=== PATIENT | female | born 1940 | race Caucasian/White ===

== ENCOUNTER → 2018-09-06 08:12 | Outpatient (CLI) | payer MEDICARE, SELFPAY ==
[2017-09-01 12:52] VITALS: BMI 38.5
[2018-09-06 09:13] LABS: Absolute Lymphocyte Count 2.43 X10^3/ul (0.83-4.51); Absolute Neutrophil Count 3.7 X10^3/uL (2.0-7.7); Basophil# 0.11 X10^3/uL; Basophil% 1.5 % (0-1); Eosinophil# 0.26 X10^3/uL; Eosinophils% 3.5 % (0-5); Hemoglobin 13.4 g/dl (12.0-15.0); Lymphocyte # 2.43 X10^3/ul (4.0); Lymphocyte % 32.6 % (19-41); Mean Corp Hgb Conc 31.9 g/gl (32-36); Mean Corpuscular Hgb 31.8 pg (27.0-32.0); Mean Corpuscular Volume 99.5 fL (81-99); Mean Platelet Vol. 10.4 fl (6.2-12.0); Monocyte# 0.92 X10^3/uL; Monocyte% 12.3 % (0-10); Neutrophil # 3.73 X10^3/uL (2.7-7.7); Platelet Count 339 K/mm3 (150-450); RBC Distribution Width CV 15.8 % (11.6-14.6); RBC Distribution Width SD 57.6 fl (35.1-43.9); Red Blood Count 4.22 M/mm3 (4.2-5.4); White Blood Count 7.5 K/mm3 (4.4-11.0)
[2018-09-06 09:18] LABS: POSITIVE COUNT NO; POSITIVE DIFFERENTIAL NO; POSITIVE MORPHOLOGY NO
[2018-09-06 09:49] LABS: BUN 26 mg/dL (7-18); Creatinine, Serum 0.73 mg/dL (0.55-1.02); EST Glomerular Filtration Rate 82 mL/min (>60); Glucose 84 mg/dL (74-106)
[2018-09-06 09:50] LABS: ALB/GLOB Ratio 0.9 RATIO (0.9-2.4); AST(SGOT) 28 U/L (15-37); Alanine Aminotransfer ALT/SGPT 31 U/L (13-56); Albumin, Serum 3.3 g/dL (3.2-5.0); Alkaline Phosphatase 108 U/L (45-117); Anion Gap 7 (5-15); BUN/Creat Ratio 35.7 RATIO (10-20); Chloride 104 mmol/L (98-107); Est Glom Filt Rate - Afr Amer 99 mL/min (>60); Globulin 3.8 g/dL (2.2-4.2); Potassium 4.1 mmol/L (3.5-5.1); Protein, Total 7.1 g/dL (6.4-8.2); Sodium Level 140 mmol/L (136-145)
[2018-09-06 16:22] LABS: Xtra Tube EP Lab EXTRA TUBE
[2018-09-09 10:02] LABS: Cancer Antigen 125 14.4 U/mL (0.0-38.1)
--- OUTSIDE RECORDS SUMMARY | 2018-10-30 08:11 | XMS RPT_ITS ---
:1940 Author Organization OHIP Care Team Providers Name Role Phone IHSAN CRAMER CNP Primary Care Unavailable IHSAN CRAMER CNP Attending Unavailable IHSAN CRAMER CNP Attending Unavailable IHSAN CRAMER CNP Primary Care Unavailable IHSAN CRAMER CNP Attending Unavailable IHSAN CRAMER CNP Primary Care Unavailable DR. CHARLOTTE DING DO Attending Unavailable IHSAN CRAMER CNP Primary Care Unavailable MD. KESHA PINO MD. Unavailable MD. KESHA PINO MD. Admitting Unavailable ALVAREZ SHOOK MD. KESHA Ovalles Attending Unavailable IHSAN CRAMER CNP Primary Care Unavailable IHSAN CRAMER CNP Consulting Unavailable LAVERN SALDIVAR MD Consulting Unavailable Len Castorena Attending Unavailable IHSAN CRAMER Primary Care Unavailable Len Castorena Attending Unavailable Len Castorena Referring Unavailable Ihsan Eldridge Primary Care Unavailable Kell, Len Attending Unavailable MARIETTAIHSAN AN Primary Care Unavailable Len Castorena Consulting Unavailable PROBLEMS PROBLEMS DATE TYPE CONDITION / CODE ATTENDING STATUS SOURCE 09/09/2018 Unknown Z85.43 - Personal Len Castorena Active [facility] history of [facility] malignant neoplasm [facility] of ovary / Repository Z85.43(ICD-10) 01/19/2018 Admitting Vitamin D [facility], Active [facility] Diagnosis deficiency, IHSAN Cisneros [facility] unspecified / Repository E55.9(ICD-10) 01/19/2018 Admitting Essential [facility], [facility] Diagnosis (primary) IHSAN Cisneros [facility] hypertension / Repository I10(ICD-10) PROCEDURES PROCEDURES No Procedure Records FoundRESULTS RESULTS ONCOLOGY VISIT REPORT Observed: 09/09/2018 Status: F Source: [place] 3:15 PM [facility] REPOSITORY [facility] [address] [place] [id number] OFFICE VISIT Date of Service: 09/09/18 1510 MR#: [id number] Acct: [id number] Name: FLORIAN CHAPMAN Rep #: [id number] : 1940 From: Len Castorena MD Age/Sex: 77/F Location: OMD Status: Signed Subjective - Date of Service Date of Service:: 09/09/18 - Chief Complaint F/u for ovarian cancer. - History of Present Illness Ms. 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 Peritoneal washings positive. S/P bilateral salpingo-oophorectomy, hysterectomy, surgical laparotomy, and complete surgical staging and an omentectomy per Dr. Randell Magallon. Completed 6 cycles of adjuvant carboplatin/Taxol from 10/26/13- 02/08/14. Patient has residual neuropathy. She is on observation, comes in for follow up. She had Intestinal obstruction, treated conservatively at [place]. - Past Medical/Social History Past Medical History Past Medical History: Arthritis,Hypertension Cancer: Ovarian cancer Past Surgical History Surgical: Hysterectomy,Tonsillectomy Family History Paternal Past Medical History: Heart disease,Hypertension Maternal Past Medical History: Unknown Social History Social History: No changes Smoking Status Former smoker Review of Systems Constitutional:: Denies: Fever, Sweats, Weight loss, Appetite change, Chills Cardiovascular:: Denies: Chest pain, Palpitations, Dyspnea on exertion, Orthopnea, PND, Shortness of breath Respiratory: Denies: Cough, Hemoptysis, Shortness of Breath, Wheezing Gastrointestinal:: Denies: Abdominal pain, Nausea, Vomiting, Diarrhea, Constipation, Hematochezia Genitourinary: Denies: Dysuria, Hematuria, 15, Flank pain Musculoskeletal:: Denies: Back pain, Myalgia, Arthralgia Skin: Denies: Rash, Skin Changes, Wounds Neurological:: Denies: Headache, Dizziness, Visual changes, Tinnitus, Hearing loss Psychiatric: Denies: Anxiety, Depression, Homicidal Ideations, Suicidal Ideations Vital Signs Height 5 ft 1 in Weight: 92.533 kg Weight in Pounds 204.0 lbs Pulse Ox 94 - Physical Exam General: Alert, Oriented x3, No apparent distress HEENT: Atraumatic, PERRLA, EOMI, Normocephalic Oropharynx:: Dry mucosa Neck:: Supple, Trachea midline. Negative for: JVD, bilateral Cardiac:: Regular rate, Regular rhythm, Normal S1, Normal S2. Negative for: Murmur Lungs: Clear to auscultation, Excusion symmetrical. Negative for: Rhonchi, Wheezes Abdomen:: Bowel sounds x 4, Soft, Non-tender, Non-distended. Negative for: Hepatosplenomegaly Extremities:: Negative for: Cyanosis, Edema Neurological: Neuro grossly intact Skin:: Negative for: Lesions, Rash, Petechiae, Ecchymosis Psychiatric:: Appropriate affect, Euthymic Lymphatics:: Negative for: Cervical lymphadenopathy, Supraclavicular lymphadenopathy, Axillary lymphadenopathy Laboratory Data: Laboratory Tests CA 125 Antigen 14.4 Assessment and Plan Ovarian cancer stage I, no evidence of disease clinically. Discussed disease status with Pt. H/O intestinal obstruction. Obtain records from [facility]. Plan is to continue observation. RTC 6 months with CBC, CMP and CA125. Medications: Prescriptions This Visit Medication Instructions Recorded Acetaminophen 500 mg PO PRN PRN 02/24/17 Ergocalciferol [Vitamin D] 50,000 unit PO Q7D 02/24/17 Meloxicam [Mobic] 15 mg PO 09/01/17 Primary Care Provider: Ihsan Cramer Referring Provider: - Problem List (1) History of ovarian cancer in adulthood Status: Chronic Code Visit Office Visits / Consults: 12416 OV L4 Est 09/09/18 1515 <Electronically signed by Len Castorena MD> Date Len Castorena MD Cosigner Signature: Date (if applicable) CC: CBC W/DIFF, AUTOMATED Collected: 09/06/2018 Status: F Source: [place] 8:20 AM [facility] REPOSITORY Order Comment: Reason for Laboratory Test OVARIAN CANCER TYPE CODE TESTS RESULT OUT OF RANGE REFERENCE UNITS LAB L100.1000 4.4-11.0 K/mm3 Normal WBC 7.5 LAB L100.1200 4.2-5.4 M/mm3 Normal RBC 4.22 LAB L100.1300 12.0-15.0 g/dl Normal HGB 13.4 LAB L100.1400 37-47 % Normal HCT 42.0 LAB L100.1500 81-99 fL High MCV 99.5 LAB L100.1600 27.0-32.0 pg Normal MCH 31.8 LAB L100.1700 32-36 g/gl Low MCHC 31.9 LAB L100.1810 11.6-14.6 % High RDW CV 15.8 LAB L100.1820 35.1-43.9 fl High RDW SD 57.6 LAB L100.1900 150-450 K/mm3 Normal PLT 339 LAB L100.2000 6.2-12.0 fl Normal MPV 10.4 LAB L100.2100 47-70 % Normal NEUT% 50.0 LAB L100.2200 19-41 % Normal LY% 32.6 LAB L100.2300 0-10 % High MONO% 12.3 LAB L100.2400 0-5 % Normal EO% 3.5 LAB L100.2500 0-1 % High BASO% 1.5 LAB L100.2550 0.0-0.9 % Normal IM GRAN % 0.100 Result Comment: IG% - Immature Granulocytes (promyelocytes, myelocytes and metamyelocytes) > 1% indicates that a LEFT SHIFT is Present. LAB L100.2620 2.0-7.7 X10 3/uL Normal Absolute Neut 3.7 LAB L100.2720 0.83-4.51 X10 3/ul Normal Absolute Lymph 2.43 Performed By: #### L100.0100 #### [facility] [address] [place], [address] COMPREHENSIVE METABOLIC Collected: 09/06/2018 Status: F Source: [facility] 8:20 AM [facility] REPOSITORY Order Comment: Reason for Laboratory Test OVARIAN CANCER TYPE CODE TESTS RESULT OUT OF RANGE REFERENCE UNITS LAB L501.0100 74-106 mg/dL Normal GLU 84 Result Comment: Please note revised GLUCOSE reference range effective 2017. LAB L501.1000 7-18 mg/dL High BUN 26 LAB L501.1100 0.55-1.02 mg/dL Normal CREAT,SERUM 0.73 Result Comment: The validity of the calculated GFR AND GFRAA in patients over 70 years has not been determined. Clinical correlation is essential. LAB L501.1110 >60 mL/min Normal EST GFR 82 Result Comment: Non- GFR Calc LAB L501.1115 >60 mL/min Normal EST GFR - AA 99 Result Comment: GFR Calc LAB L501.1300 10-20 RATIO High BUN/CRE 35.7 LAB L501.1500 6.4-8.2 g/dL T Normal PROT 7.1 LAB L501.1800 3.2-5.0 g/dL Normal ALB 3.3 LAB L501.1950 2.2-4.2 g/dL Normal GLOB 3.8 LAB L501.2000 0.9-2.4 RATIO Normal A/G 0.9 LAB L501.2200 8.5-10.1 mg/dL CA Normal 9.0 LAB L501.4100 15-37 U/L Normal AST 28 LAB L501.4305 45-117 U/L Normal ALK P 108 LAB L501.4405 13-56 U/L Normal ALT 31 LAB L501.4600 0.20-1.00 mg/dL T Normal BILI 0.60 LAB L501.5300 136-145 mmol/L NA Normal 140 LAB L501.5600 3.5-5.1 mmol/L K Normal 4.1 LAB L501.5900 98-107 mmol/L CL Normal 104 LAB L501.6100 21.0-32.0 mmol/L Normal CO2 29.0 LAB L501.6200 5-15 Normal GAP 7 Performed By: #### L500.4050 #### [facility] [address] [place], [address] CANCER ANTIGEN 125 Collected: 09/06/2018 Status: F Source: [place] 8:20 AM [facility] REPOSITORY Order Comment: Reason for Laboratory Test OVARIAN CANCER TYPE CODE TESTS RESULT OUT OF RANGE REFERENCE UNITS LAB L3100.5000 0.0-38.1 U/mL Normal CA125 14.4 2303 Result Comment: [employer] ECLIA methodology Performed at: [facility] [address] [id number] Associate Dean Of Students: Ruddy Woodward PhD, Phone: [phone] Performed By: #### L3100.5000 #### [facility] (refer to report for specific site) refer to report for address and phone number XR ABDOMEN 2 VIEWS W/ Observed: 08/21/2018 Status: F Source: [facility]ERECT 7:45 AM [facility] REPOSITORY ORIGINAL XR ABDOMEN 2 VIEWS W/ DECUB/ERECT, 2 VIEWS CLINICAL STATEMENT: obstruction, pain. COMPARISON: CT abdomen pelvis 08/17/2018 FINDINGS: The bowel gas pattern is nonobstructive. No dilated loops of bowel or free air shown. Surgical clips are present in the abdomen. There is a moderate amount of stool and gas in the colon. Gas a nd stool is noted through the rectum. There is a caliber change of the column of gas of the descending colon overlying the ileum, a nonspecific finding. Degenerative changes are seen in the spine. IMPRESSION: Moderate stool and gas in the colon. Nonobstructive bowel gas pattern. Interpreted By: Kaelyn Pepper MD Preliminary Report By: Kaelyn Pepper MD Electronically Signed By: Kaelyn Pepper MD Dictated Date: 08/21/2018 7:39:39 AM Prelim Date: 08/21/2018 7:39:39 AM Sign Date: 08/21/2018 7:42:14 AM CBC Collected: 08/18/2018 Status: F Source: [facility] 5:15 AM [facility] REPOSITORY TYPE CODE TESTS RESULT OUT OF REFERENCE UNITS RANGE LAB WBC(LOINC) 4.50-10.80 10 3/mcL High WBC 14.00 LAB RBCCT(LOINC 4.10-5.30 10 6/mcL ) Low RBC 4.01 LAB HGB(LOINC) 12.0-16.0 G/dL Hgb 13.0 LAB HCT(LOINC) 34.0-46.0 % Hct 39.4 LAB MCV(LOINC) 80.0-99.0 fL MCV 98.5 LAB MCH(LOINC) 27.0-33.0 pg MCH 32.5 LAB MCHC(LOINC) 32.0-36.0 G/dL MCHC 33.0 LAB RDW(LOINC) 11.5-15.5 % High RDW 15.6 LAB PLT(LOINC) 150-450 10 3/mcL Platelet 234 LAB MPV(LOINC) 6.6-10.5 fL MPV 8.9 Performed By: #### ANEU, ADIFF, GFR, BMP, CBC #### [place] [address] .AUTO DIFF Collected: 08/18/2018 Status: F Source: [facility] 5:15 AM [facility]PART[facility] REPOSITORY TYPE CODE TESTS RESULT OUT OF REFERENCE UNITS RANGE LAB LYNNE(LOINC) 50.0-75.0 % High Neutrophil % 82.5 LAB LYM(LOINC) 20.0-40.0 % Low Lymphocyte % 9.8 LAB MON(LOINC) 2.0-13.0 % Monocyte % 7.5 LAB EO(LOINC) 0.0-6.0 % Eosinophil % 0.0 LAB BAS(LOINC) 0.0-2.5 % Basophil % 0.2 LAB ABLYM(LOIN 0.90-4.32 10 3/mcL C) Lymphocyte, 1.40 Absolute LAB CHELLE(LOINC 0.09-1.40 10 3/mcL ) Monocyte, 1.00 Absolute LAB AEOS(LOINC 0.00-0.65 10 3/mcL ) Eosinophil, 0.00 Absolute LAB ABAS(LOINC 0.00-0.27 10 3/mcL ) Basophil, 0.00 Absolute Performed By: #### ANEU, ADIFF, GFR, BMP, CBC #### [address] [address] .NEUABS Collected: 08/18/2018 Status: F Source: [facility] 5:15 AM [facility]ENC[facility]PART[facility] REPOSITORY TYPE CODE TESTS RESULT OUT OF REFERENCE UNITS RANGE LAB ANEU(LOINC) 2.25-8.10 10 3/mcL High Neutrophil, 11.50 Absolute Performed By: #### ANEU, ADIFF, GFR, BMP, CBC #### [place] [address] BMP Collected: 08/18/2018 Status: F Source: [facility] 5:15 AM [facility] EM[facility]PART[facility] REPOSITORY TYPE CODE TESTS RESULT OUT OF REFERENCE UNITS RANGE LAB GLU(LOINC) 82-115 mg/dL Glucose Level 101 LAB NA(LOINC) 136-145 mEq/L Sodium Level 140 LAB K(LOINC) 3.5-5.0 mEq/L Potassium Level 3.6 LAB CL(LOINC) 98-110 mEq/L Chloride 107 LAB CO2(LOINC) 22-32 mEq/L CO2 24 LAB EBAL(LOINC 4.0-15.0 mEq/L ) Electrolyte Balance 9.0 LAB BUN(LOINC) 8.0-22.0 mg/dL BUN 15.0 LAB CRE(LOINC) 0.50-1.20 mg/dL Creatinine Lvl (s) 0.59 LAB BC(LOINC) 10.0-22.0 ratio High BUN/Creatinine 25.4 Ratio LAB CA(LOINC) 8.4-10.1 mg/dL Low Calcium Lvl 8.1 Performed By: #### ANEU, ADIFF, GFR, BMP, CBC #### [address] [address] .GFR Collected: 08/18/2018 Status: F Source: [facility] 5:15 AM [facility] EMERGENC[facility]PART[facility] REPOSITORY TYPE CODE TESTS RESULT OUT OF REFERENCE UNITS RANGE LAB GFRAA(LOINC ml/min/1.73 ) sqm GFR >60 Vietnamese Result Comment: GFR Population mean for , Non- Americans Ages 20-29 = 116 mL/min/1.73 sq.m. Ages 30-39 = 107 mL/min/1.73 sq.m. Ages 40-49 = 99 mL/min/1.73 sq.m. Ages 50-59 = 93 mL/min/1.73 sq.m. Ages 60-69 = 85 mL/min/1.73 sq.m. Ages 70+ = 75 mL/min/1.73 sq.m. Chronic Kidney Disease: Less than 60 mL/min/1.73 square meters End Stage Renal Disease: Less than 15 mL/min/1.73 square meters LAB GFRNO(LOINC) ml/min/1.73sqm GFR Non- >60 Result Comment: GFR Population mean for , Non- Americans Ages 20-29 = 116 mL/min/1.73 sq.m. Ages 30-39 = 107 mL/min/1.73 sq.m. Ages 40-49 = 99 mL/min/1.73 sq.m. Ages 50-59 = 93 mL/min/1.73 sq.m. Ages 60-69 = 85 mL/min/1.73 sq.m. Ages 70+ = 75 mL/min/1.73 sq.m. Chronic Kidney Disease: Less than 60 mL/min/1.73 square meters End Stage Renal Disease: Less than 15 mL/min/1.73 square meters Performed By: #### ANEU, ADIFF, GFR, BMP, CBC #### [place] [address] CT ABD/PELVIS W/ IV Observed: 08/17/2018 Status: F Source: [facility] CONTRAST ONLY 5:08 PM [facility] REPOSIT[facility] ORIGINAL CT ABD/PELVIS W/ IV CONTRAST ONLY CLINICAL STATEMENT: LEFT lower quadrant abdominal pain, nausea, vomiting, constipation COMPARISON: None TECHNIQUE: Axial images were obtained from the lung bases through the pubic symphysis after the administration of IV contrast. Coronal reformatted images were generated from the axial dataset. This exam was performed according to our departmental dose optimization program, and includes the following measures where applicable: automated exposure control, adjustment of the mAs and/or kVp according to pa tient size and/or exam, and an iterative reconstruction algorithm. FINDINGS: The included lung bases demonstrate bibasilar atelectasis. There is no visible pleural or pericardial effusion. The heart is normal in size. The liver, spleen, adrenal glands, kidneys, gallbladder and pancreas are within normal limits. There is a small hiatal hernia. Stomach is unremarkable. There are no dilated bowel loops. The sigmoid colon is collapsed. There are sigmoid diverticuli without evidence of acute diverticulitis. Within the mid descending colon, there is an abrupt transition point of collapsed distal descending colon and air and stool-filled proximal descending colon. There may be a short segment target appearance whic h may represent intussusception. There is mild adjacent fat stranding. There is a moderate amount of stool within the descending colon to the cecum. No free intraperitoneal fluid or air is identified. The aorta is atherosclerotic and nonaneurysmal. There is no lymphadenopathy. The uterus is surgically absent. There are advanced degenerative changes within the spine. There is levocurvature of the lumbar spine. There is sclerosis and degenerative change of the LEFT SI joint. IMPRESSION: Abrupt transition point in the distal descending colon with a short segment target appearance which may represent an intussusception. Further evaluation needed to exclude an underlying mass. There is mi ld adjacent fat stranding/inflammation. The colon is mildly distended proximal to this point of transition and a partial obstruction is not excluded. The small bowel is not distended at this time. Moderate amount of stool within the colon. Discussed with Dr. Ding at 6:00 PM I have personally reviewed the images of this examination and agree with the resident's findings and interpretation. Interpreted By: Aron Badillo MD Preliminary Report By: Xenia Cabrera MD Electronically Signed By: Aron Badillo MD Dictated Date: 08/17/2018 5:26:12 PM Prelim Date: 08/17/2018 5:45:35 PM Sign Date: 08/17/2018 6:03:29 PM UA Collected: 08/17/2018 Status: F Source: [facility] 4:36 PM [facility] REPOSITORY TYPE CODE TESTS RESULT OUT OF RANGE REFERENCE UNITS LAB SPCUA(LEXI NC) UA Specimen Type Void LAB CLRUA(LEXI NC) UA Color Yellow LAB APPUA(LEXI Clear NC) UA Appear Unknown Slightly Cloudy LAB SGUA(LOIN C) UA Spec Unknown Grav >=1.030 LAB GLUA(LOIN Negative mg/dL C) UA Glucose Negative LAB BILUA(LEXI Negative NC) UA Bili Unknown Small LAB KETUA(LEXI Negative mg/dL NC) UA Ketones Unknown 15 LAB BLDUA(LEXI Negative NC) UA Blood Unknown Large LAB PHUA(LOIN C) UA pH 5.5 LAB PROUA(LEXI Negative mg/dL NC) UA Protein 30 LAB UROUA(LEXI E.U./dL NC) UA Urobilinogen 0.2 LAB NITUA(LEXI Negative NC) UA Nitrite Negative LAB LEUUA(LEXI Negative NC) UA Leuk Est Negative Performed By: #### UA, UAMICAO #### [address] [address] .URINALYSIS MICROSCOPIC Collected: 08/17/2018 Status: F Source: [facility] 4:36 [facility] REPOSITORY TYPE CODE TESTS RESULT OUT OF RANGE REFERENCE UNITS LAB WBCUA(LOIN None Seen /hpf C) Unknown UA WBC 0-5 LAB RBCUA(LOIN None Seen /hpf C) Unknown UA RBC 5-10 LAB EPIUA(LOIN None Seen /hpf C) Unknown UA Squam Epithelial 0-5 LAB MUCUA(LOIN /hpf C) UA Mucous 3+ LAB HYAC(LOINC /lpf ) Unknown UA Hyal Cast 0-5 Performed By: #### UA, UAMICAO #### [address] [address] .GFR Collected: 08/17/2018 Status: F Source: [facility] 4:36 [facility] REPOSITORY TYPE CODE TESTS RESULT OUT OF REFERENCE UNITS RANGE LAB GFRAA(LOINC ml/min/1.73 ) sqm GFR 98 Vietnamese Result Comment: GFR Population mean for , Non- Americans Ages 20-29 = 116 mL/min/1.73 sq.m. Ages 30-39 = 107 mL/min/1.73 sq.m. Ages 40-49 = 99 mL/min/1.73 sq.m. Ages 50-59 = 93 mL/min/1.73 sq.m. Ages 60-69 = 85 mL/min/1.73 sq.m. Ages 70+ = 75 mL/min/1.73 sq.m. Chronic Kidney Disease: Less than 60 mL/min/1.73 square meters End Stage Renal Disease: Less than 15 mL/min/1.73 square meters LAB GFRNO(LOINC) ml/min/1.73sqm GFR Non- 81 Result Comment: GFR Population mean for , Non- Americans Ages 20-29 = 116 mL/min/1.73 sq.m. Ages 30-39 = 107 mL/min/1.73 sq.m. Ages 40-49 = 99 mL/min/1.73 sq.m. Ages 50-59 = 93 mL/min/1.73 sq.m. Ages 60-69 = 85 mL/min/1.73 sq.m. Ages 70+ = 75 mL/min/1.73 sq.m. Chronic Kidney Disease: Less than 60 mL/min/1.73 square meters End Stage Renal Disease: Less than 15 mL/min/1.73 square meters Performed By: #### GFR, BMP #### [place] [address] #### CBC, DIFF, MORPH #### [address] [address] BMP Collected: 08/17/2018 Status: F Source: [facility] 4:36 PM [facility] REPOSITORY TYPE CODE TESTS RESULT OUT OF REFERENCE UNITS RANGE LAB GLU(LOINC) 83-110 mg/dL Glucose High Level 114 LAB NA(LOINC) 136-145 mmol/L Sodium Level 137 LAB K(LOINC) 3.5-5.1 mmol/L Potassium Level 4.1 LAB CL(LOINC) 98-107 mmol/L Chloride 99 LAB CO2(LOINC) 23-31 mmol/L CO2 29 LAB EBAL(LOINC mEq/L ) Electrolyte Balance 9.0 LAB BUN(LOINC) 7-18 mg/dL BUN 15 LAB CRE(LOINC) 0.55-1.02 mg/dL Creatinine Lvl (s) 0.70 LAB BC(LOINC) 7-27 ratio BUN/Creatinine 21 Ratio LAB CA(LOINC) 8.4-10.2 mg/dL Calcium Lvl 9.3 Performed By: #### GFR, BMP #### [address] [address] #### CBC, DIFF, MORPH #### [place] [address] [place], [place] [address] CBC Collected: 08/17/2018 Status: F Source: [facility] 4:36 PM [facility] REPOSITORY TYPE CODE TESTS RESULT OUT OF REFERENCE UNITS RANGE LAB WBC(LOINC) 4.60-10.80 10 3/mcL High WBC 15.60 LAB RBCCT(LOINC 4.20-5.40 10 6/mcL ) RBC 4.92 LAB HGB(LOINC) 12.0-16.0 G/dL Hgb 15.6 LAB HCT(LOINC) 37.0-47.0 % High Hct 47.8 LAB MCV(LOINC) 80.0-94.0 fL High MCV 97.1 LAB MCH(LOINC) 27.0-31.2 pg High MCH 31.8 LAB MCHC(LOINC) 33.0-37.0 G/dL Low MCHC 32.7 LAB RDW(LOINC) 11.5-14.5 % High RDW 14.8 LAB PLT(LOINC) 130-400 10 3/mcL Platelet 307 LAB MPV(LOINC) 7.4-10.4 fL MPV 8.6 Performed By: #### GFR, BMP #### [place] [address] #### CBC, DIFF, MORPH #### [address] [address] .MANUAL DIFF Collected: 08/17/2018 Status: F Source: [facility] 4:36 [facility] [place] REPOSITORY TYPE CODE TESTS RESULT OUT OF REFERENCE UNITS RANGE LAB NEUM(LOINC 37.0-80.0 % ) Neutrophil %, 70.0 Manual LAB LYMM(LOINC 10.0-50.0 % ) Low Lymphocyte %, 7.0 Manual LAB MONM(LOINC 1.7-13.0 % ) Monocyte %, Manual 7.0 LAB EOM(LOINC) 0.0-7.0 % Eosinophil %, 0.0 Manual LAB BASM(LOINC 0.0-2.5 % ) Basophil %, Manual 1.0 LAB ALYM(LOINC 0.0-5.0 % ) Atypical Lymphs 5.0 LAB BAND(LOINC 0.0-5.0 % ) Bands High 10.0 LAB ANEUM(LOIN 2.85-6.16 10 3/mcL C) High Neutrophil, Abs 12.50 Manual LAB ABLYMM(LEXI 0.77-3.85 10 3/mcL NC) Lymphocyte, Abs 1.90 Manual LAB AMONM(LOIN 0.15-1.00 10 3/mcL C) High Monocyte, Abs 1.10 Manual LAB AEOSM(LOIN 0.00-0.40 10 3/mcL C) Eosinophil, Abs 0.00 Manual LAB ABASM(LOIN 0.00-0.19 10 3/mcL C) Basophil, Abs 0.10 Manual Performed By: #### GFR, BMP #### [place] [address] #### CBC, DIFF, MORPH #### [address] [address] .MORPH Collected: 08/17/2018 Status: F Source: [facility] 4:36 PM [facility] REPOSITORY TYPE CODE TESTS RESULT OUT OF REFERENCE UNITS RANGE LAB PLTE(LOINC ) Platelet Estimate Normal LAB MACYT(LOIN C) Macrocytosis Slight LAB TGR(LOINC) Toxic Gran Moderate Performed By: #### GFR, BMP #### [place] [address] #### CBC, DIFF, MORPH #### [place] [address] [place], [place] [address] CBC Collected: 07/22/2018 Status: F Source: [facility] 8:15 AM [facility] EMERGENC[facility]PART[facility] REPOSITORY TYPE CODE TESTS RESULT OUT OF REFERENCE UNITS RANGE LAB WBC(LOINC) 4.60-10.80 10 3/mcL WBC 5.00 LAB RBCCT(LOINC 4.20-5.40 10 6/mcL ) RBC 4.84 LAB HGB(LOINC) 12.0-16.0 G/dL Hgb 15.2 LAB HCT(LOINC) 37.0-47.0 % High Hct 47.3 LAB MCV(LOINC) 80.0-94.0 fL High MCV 97.7 LAB MCH(LOINC) 27.0-31.2 pg High MCH 31.5 LAB MCHC(LOINC) 33.0-37.0 G/dL Low MCHC 32.2 LAB RDW(LOINC) 11.5-14.5 % RDW 13.9 LAB PLT(LOINC) 130-400 10 3/mcL Platelet 174 LAB MPV(LOINC) 7.4-10.4 fL MPV 9.7 Performed By: #### CMP, GFR, VIDH #### [place] [address] #### ADIFF, ANEU, CBC #### [address] [address] .AUTO DIFF Collected: 07/22/2018 Status: F Source: [facility] 8:15 AM [facility] EMERGENC[facility]PARTMENT REPOSITORY TYPE CODE TESTS RESULT OUT OF REFERENCE UNITS RANGE LAB LYNNE(LOINC) 37.0-80.0 % Neutrophil % 73.8 LAB LYM(LOINC) 10.0-50.0 % Lymphocyte % 14.9 LAB MON(LOINC) 1.7-13.0 % Monocyte % 7.8 LAB EO(LOINC) 0.0-7.0 % Eosinophil % 2.3 LAB BAS(LOINC) 0.0-2.5 % Basophil % 1.2 LAB ABLYM(LOIN 0.77-3.85 10 3/mcL C) Lymphocyte, 0.80 Absolute LAB CHELLE(LOINC 0.15-1.00 10 3/mcL ) Monocyte, 0.40 Absolute LAB AEOS(LOINC 0.00-0.40 10 3/mcL ) Eosinophil, 0.10 Absolute LAB ABAS(LOINC 0.00-0.19 10 3/mcL ) Basophil, 0.10 Absolute Performed By: #### CMP, GFR, VIDH #### [place] [address] #### ADIFF, ANEU, CBC #### [address] [address] .NEUABS Collected: 07/22/2018 Status: F Source: [facility] 8:15 AM [facility] EMERGENC[facility]PARTMENT REPOSITORY TYPE CODE TESTS RESULT OUT OF REFERENCE UNITS RANGE LAB ANEU(LOINC) 2.85-6.16 10 3/mcL Neutrophil, 3.70 Absolute Performed By: #### CMP, GFR, VIDH #### [place] [address] #### NOEMI, ANEU, CBC #### [place] [id number] [place], [place] [address] CMP Collected: 07/22/2018 Status: F Source: [facility] 8:15 AM [facility] EMERGENCY DEPARTMENT REPOSITORY TYPE CODE TESTS RESULT OUT OF REFERENCE UNITS RANGE LAB GLU(LOINC) 83-110 mg/dL Glucose Level 96 LAB NA(LOINC) 136-145 mmol/L Sodium Level 137 LAB K(LOINC) 3.5-5.1 mmol/L Potassium Level 4.3 LAB CL(LOINC) 98-107 mmol/L Chloride 101 LAB CO2(LOINC) 23-31 mmol/L CO2 28 LAB EBAL(LOINC mEq/L ) Electrolyte Balance 8.0 LAB BUN(LOINC) 7-18 mg/dL BUN High 24 LAB CRE(LOINC) 0.55-1.02 mg/dL Creatinine Lvl (s) 0.91 LAB BC(LOINC) 7-27 ratio BUN/Creatinine 26 Ratio LAB CA(LOINC) 8.4-10.2 mg/dL Calcium Lvl 9.1 LAB PROT(LOINC 6.4-8.2 G/dL ) Total Protein 7.0 LAB ALB(LOINC) 3.4-4.8 G/dL Albumin Level 3.6 LAB GLB(LOINC) G/dL Globulin 3.4 LAB AG(LOINC) 1.1-2.5 ratio A/G Ratio 1.1 LAB BILT(LOINC 0.2-1.0 mg/dL ) Bili Total 0.3 LAB AP(LOINC) 40-135 U/L Alk Phos 67 LAB AST(LOINC) 10-40 U/L AST/SGOT 35 LAB ALT(LOINC) 10-35 U/L ALT/SGPT High 47 Performed By: #### CMP, GFR, VIDH #### [facility] [address] [place] [address] #### NOEMI, ANEU, CBC #### [place] [address] [place], [place] [address] .GFR Collected: 07/22/2018 Status: F Source: [facility] 8:15 AM [facility] EMERGENCY DEPARTMENT REPOSITORY TYPE CODE TESTS RESULT OUT OF REFERENCE UNITS RANGE LAB GFRAA(LOINC ml/min/1.73 ) sqm GFR 73 Vietnamese Result Comment: GFR Population mean for , Non- Americans Ages 20-29 = 116 mL/min/1.73 sq.m. Ages 30-39 = 107 mL/min/1.73 sq.m. Ages 40-49 = 99 mL/min/1.73 sq.m. Ages 50-59 = 93 mL/min/1.73 sq.m. Ages 60-69 = 85 mL/min/1.73 sq.m. Ages 70+ = 75 mL/min/1.73 sq.m. Chronic Kidney Disease: Less than 60 mL/min/1.73 square meters End Stage Renal Disease: Less than 15 mL/min/1.73 square meters LAB GFRNO(LOINC) ml/min/1.73sqm GFR Non- 60 Result Comment: GFR Population mean for , Non- Americans Ages 20-29 = 116 mL/min/1.73 sq.m. Ages 30-39 = 107 mL/min/1.73 sq.m. Ages 40-49 = 99 mL/min/1.73 sq.m. Ages 50-59 = 93 mL/min/1.73 sq.m. Ages 60-69 = 85 mL/min/1.73 sq.m. Ages 70+ = 75 mL/min/1.73 sq.m. Chronic Kidney Disease: Less than 60 mL/min/1.73 square meters End Stage Renal Disease: Less than 15 mL/min/1.73 square meters Performed By: #### CMP, GFR, VIDH #### [place] [id number] [place] [address] #### NOEMI, ANEU, CBC #### [place] [address] [place], [place] [address] VIDH Collected: 07/22/2018 Status: F Source: [facility] 8:15 AM [facility] REPOSITORY TYPE CODE TESTS RESULT OUT OF RANGE REFERENCE UNITS LAB VIDH(LOINC) ng/mL Vit. D 83 25-Hydroxy Result Comment: Interpretive Values Based on Total 25(OH)D: Severe Deficiency <20 ng/mL Mild to Moderate Deficiency 20-30 ng/mL Optimum Levels 30-100 ng/mL Toxicity Possible >100 ng/mL Performed By: #### CMP, GFR, VIDH #### [place] [address] [place] [address] #### ADIFF, ANEU, CBC #### [facility] [address] [place], [place] [address] [place] MAMMOGRAM SCREENING Observed: 02/01/2018 Status: F Source: [facility] BILATERAL W/DK 2:30 PM FOUNDATION REPOSITORY ORIGINAL FROM: [address] [address] PROCEDURE FOR: FLORIAN CHAPMAN [address] [place] [place] [id number] Home: PID#: [id number] Exam#: [id number] : 1940 Age: 77 TO: IHSAN OWENPKINS KILN TESTER [address] [place] [address] #[id number] DIGITAL SCREENING MAMMOGRAM 3D/2D WITH CAD WITH MEDIOLATERAL OBLIQUE CRANIOCAUDAL: 02/01/2018 Comparison is made to exams dated: 01/29/2017 mammogram and 01/29/2016 mammogram - [facility]. There are scattered fibroglandular elements in both breasts. Current study was also evaluated with a Computer Aided Detection (CAD) system. There are benign scattered calcifications in both breasts. There also is a benign density in the right breast. No significant masses, calcifications, or other findings are seen in either breast. There has been no significant interval change. IMPRESSION: BENIGN There is no mammographic evidence of malignancy. A 1 year screening mammogram is recommended. I have personally reviewed the images of the examination and agree with the findings and interpretation. MARY MARTINEZ MD vfg,yz/penrad:02/01/2018 15:39:[address] Referee: TOREY ESTRELLA (Misa)(M), [facility] letter sent: Normal BI-RADS 1&2 Mammogram BI-RADS: 2 Benign CBC Collected: 01/19/2018 Status: F Source: [facility] 8:45 AM [facility]OUNDATION REPOSITORY TYPE CODE TESTS RESULT OUT OF REFERENCE UNITS RANGE LAB WBC(LOINC) 4.60-10.80 10 3/mcL WBC 7.10 LAB RBCCT(LOINC 4.20-5.40 10 6/mcL ) RBC 5.03 LAB HGB(LOINC) 12.0-16.0 G/dL High Hgb 16.1 LAB HCT(LOINC) 37.0-47.0 % High Hct 48.1 LAB MCV(LOINC) 80.0-94.0 fL High MCV 95.6 LAB MCH(LOINC) 27.0-31.2 pg High MCH 32.0 LAB MCHC(LOINC) 33.0-37.0 G/dL MCHC 33.4 LAB RDW(LOINC) 11.5-14.5 % RDW 14.1 LAB PLT(LOINC) 130-400 10 3/mcL Platelet 268 LAB MPV(LOINC) 7.4-10.4 fL MPV 10.2 Performed By: #### ANEU, GFR, CMP, CBC, ADIFF #### [address] [address] #### VI #### [address] [address] .AUTO DIFF Collected: 01/19/2018 Status: F Source: [facility] 8:45 AM [facility] EMERGENCY DEPARTMENT REPOSITORY TYPE CODE TESTS RESULT OUT OF REFERENCE UNITS RANGE LAB LYNNE(LOINC) 37.0-80.0 % Neutrophil % 49.4 LAB LYM(LOINC) 10.0-50.0 % Lymphocyte % 36.5 LAB MON(LOINC) 1.7-13.0 % Monocyte % 8.9 LAB EO(LOINC) 0.0-7.0 % Eosinophil % 2.7 LAB BAS(LOINC) 0.0-2.5 % Basophil % 2.5 LAB ABLYM(LOIN 0.77-3.85 10 3/mcL C) Lymphocyte, 2.60 Absolute LAB CHELLE(LOINC 0.15-1.00 10 3/mcL ) Monocyte, 0.60 Absolute LAB AEOS(LOINC 0.00-0.40 10 3/mcL ) Eosinophil, 0.20 Absolute LAB ABAS(LOINC 0.00-0.19 10 3/mcL ) High Basophil, 0.20 Absolute Performed By: #### ANEU, GFR, CMP, CBC, ADIFF #### [place] [address] [place], [place] [address] #### VIDH #### [address] [address] .NEUABS Collected: 01/19/2018 Status: F Source: [facility] 8:45 AM [facility] EMERGENCY DEPARTMENT REPOSITORY TYPE CODE TESTS RESULT OUT OF REFERENCE UNITS RANGE LAB ANEU(LOINC) 2.85-6.16 10 3/mcL Neutrophil, 3.50 Absolute Performed By: #### ANEU, GFR, CMP, CBC, ADIFF #### [place] [address] [place], [place] [address] #### VIDH #### [place] [id number] CMP Collected: 01/19/2018 Status: F Source: [facility] 8:45 AM [facility] EMERGENCY DEPARTMENT REPOSITORY TYPE CODE TESTS RESULT OUT OF REFERENCE UNITS RANGE LAB 1547-9 83-110 mg/dL GLUCOSE 85 LAB NA(LOINC) 136-146 mEq/L Sodium Level 139 LAB K(LOINC) 3.5-5.1 mEq/L Potassium Level 4.8 LAB CL(LOINC) 98-107 mEq/L Chloride 101 LAB CO2(LOINC) 23-31 mEq/L CO2 28 LAB EBAL(LOINC mEq/L ) Electrolyte Balance 10.0 LAB BUN(LOINC) 7.0-18.0 mg/dL BUN High 18.7 LAB CRE(LOINC) 0.6-1.2 mg/dL Creatinine Lvl (s) 0.8 LAB BC(LOINC) 7-27 ratio BUN/Creatinine 23 Ratio LAB CA(LOINC) 8.4-10.2 mg/dL Calcium Lvl 9.9 LAB PROT(LOINC 6.0-8.3 G/dL ) Total Protein 7.3 LAB ALB(LOINC) 3.4-4.8 G/dL Albumin Level 4.2 LAB GLB(LOINC) G/dL Globulin 3.1 LAB AG(LOINC) 1.1-2.5 ratio A/G Ratio 1.4 LAB BILT(LOINC 0.2-1.0 mg/dL ) Bili Total 0.6 LAB AP(LOINC) 40-135 IU/L Alk Phos 65 LAB AST(LOINC) 10-40 IU/L AST/SGOT 21 LAB ALT(LOINC) 10-35 IU/L ALT/SGPT 14 Performed By: #### ANEU, GFR, CMP, CBC, ADIFF #### [address] [address] #### VIDH #### [facility] [address] [place] [address] .GFR Collected: 01/19/2018 Status: F Source: [facility] 8:45 AM FOUNDATION REPOSITORY TYPE CODE TESTS RESULT OUT OF REFERENCE UNITS RANGE LAB GFRAA(LOINC ml/min/1.73 ) sqm GFR 83 Vietnamese Result Comment: GFR Population mean for , Non- Americans Ages 20-29 = 116 mL/min/1.73 sq.m. Ages 30-39 = 107 mL/min/1.73 sq.m. Ages 40-49 = 99 mL/min/1.73 sq.m. Ages 50-59 = 93 mL/min/1.73 sq.m. Ages 60-69 = 85 mL/min/1.73 sq.m. Ages 70+ = 75 mL/min/1.73 sq.m. Chronic Kidney Disease: Less than 60 mL/min/1.73 square meters End Stage Renal Disease: Less than 15 mL/min/1.73 square meters LAB GFRNO(LOINC) ml/min/1.73sqm GFR Non- >60 Result Comment: GFR Population mean for , Non- Americans Ages 20-29 = 116 mL/min/1.73 sq.m. Ages 30-39 = 107 mL/min/1.73 sq.m. Ages 40-49 = 99 mL/min/1.73 sq.m. Ages 50-59 = 93 mL/min/1.73 sq.m. Ages 60-69 = 85 mL/min/1.73 sq.m. Ages 70+ = 75 mL/min/1.73 sq.m. Chronic Kidney Disease: Less than 60 mL/min/1.73 square meters End Stage Renal Disease: Less than 15 mL/min/1.73 square meters Performed By: #### ANEU, GFR, CMP, CBC, ADIFF #### [address] [address] #### VIDH #### [facility] [address] [place] [address] VIDH Collected: 01/19/2018 Status: F Source: [facility] 8:45 AM [facility] EMERGENCY DEPARTMENT REPOSITORY TYPE CODE TESTS RESULT OUT OF RANGE REFERENCE UNITS LAB VIDH(LOINC) ng/mL Vit. D 72 25-Hydroxy Result Comment: Interpretive Values Based on Total 25(OH)D: Severe Deficiency <20 ng/mL Mild to Moderate Deficiency 20-30 ng/mL Optimum Levels 30-100 ng/mL Toxicity Possible >100 ng/mL Performed By: #### ANEU, GFR, CMP, CBC, ADIFF #### [place] [address] [place], [place] [address] #### VIDH #### [place] [id number] ALLERGIES ALLERGIES DATE TYPE / CODE NAME / CODE REACTION SEVERITY SOURCE 09/09/2018 Drug Sulfa Unknown Unknown [facility] Allergy/4160 (Sulfonamide Hospital 65192(SNOMED Antibiotics)/ Repository CT) [id number](RX NORM) 09/09/2018 Drug adhesive/F006 Rash Unknown [facility] Allergy/4160 154674(RXNORM Hospital 78205(SNOMED ) Repository CT) ENCOUNTERS ENCOUNTERS ADMIT/DISCHARGE ACCOUNT NUMBER ADMITTING ENCOUNTER LOCATION SOURCE CLASS 09/09/2018 [id number] Ambulatory BMSBuilding: [place] [facility] Repository 09/09/2018 [id number] Ambulatory [facility] ding:OMD Repository 09/06/2018 [id number] Ambulatory [facility] ding:LAB Repository 08/17/2018/08/22/20 [id number] ALVAREZ FAULKNER., Inpatient ABuilding:ME Jana [place] Encounter 6ERoom: Health 6703Bed: A [facility] Repository 08/17/2018/08/17/20 [id number] Emergency BBuilding:[place] [facility] Repository 07/22/2018/07/26/20 [id number] Ambulatory [address] ding:[facility] Repository 02/01/2018/02/02/20 [id number] Ambulatory [address] ding:[facility] Repository 01/19/2018/01/24/20 [id number] Ambulatory [address] ding:DROP [facility] Repository PAYERS PAYERS ENCOUNTER GUARANTOR PAYER SUBSCRIBER SOURCE 09/09/2018 FLORIAN Cullen Primary FLORIAN Cullen [place] [id number] Insurance:CHERELLE DOUGLASDOB: [facility] [id number] [facility] Number: Repository [address]Elo: 330 [id number] [phone] (HP) Date:4439-04-75[address], [place] [address]HX: 09/09/2018 Secondary NOT GIVENUNK [place] Insurance:SELF PAY [facility] Number: Effective Repository Date:2018-09-09 09/09/2018 FLORIAN Cullen Primary FLORIAN Cullen [place] [id number] Insurance:CHERELLE DOUGLASDOB: [id number]: Repository [id number]: 330 [id number] [phone] (HP) Date:[id number], [place] [address]NW: 09/09/2018 Secondary NOT GIVENUNK [place] Insurance:SELF PAY [facility] Number: Effective Repository Date:2016-12-23 09/06/2018 FLORIAN Cullen Primary FLORIAN Cullen [place] [id number] Insurance:CHERELLE DOUGLASDOB: [facility] [id number] [facility] Number: Repository [address]Mfe: 330 [id number] [phone] (HP) Date:8619-29-76[address] [address]QM: 09/06/2018 Secondary NOT GIVENUNK [place] Insurance:SELF PAY [facility] Number: Effective Repository Date:2018-09-06 08/17/2018 FLORIAN Cullen Primary FLORIAN Bates [facility] [place] [facility] DOUGLASDOB: Insurance:PRIME TIME DOUGLASDOB: [facility] [place]Policy [id number] Repository [address] Number: [place] [id number] [place] [address]Hjx: (330) Date:2018-08-1768115Lcb: [id number] [phone] (HP)Tel: ([phone]) Name:[address] (HP) (WP) [address], [place] [address] (WP) [address]XM: 08/17/2018 Secondary FLORIAN [facility] Insurance:MEDICARE DOUGLASDOB: [facility] [id number] Repository Number: [address] [id number] [facility] [place] Date:2017-04-18 [address]Blf: 330 [id number] [phone] Name:MMail Code AG (HP)Tel: [phone]) [phone] ([place]) [address] [address]YZ: 08/17/2018 [facility] FLORIAN Batse [facility] [place] [facility] DOUGLASDOB: Insurance:PRIME TIME DOUGLASDOB: [facility] [place]Policy [id number] Repository [address] Number: [place] [id number] [place]ÚL [place] [address]Fwz: (330) Date:2018-08-1704704Dgl: [id number] [phone] (HP)Tel: ([phone]) Name:[address] (HP) ([address]) [address], [place] [address] (WP) [phone]: 07/22/2018 [facility] FLORIAN Bates [facility] [place] [facility] DOUGLASDOB: Insurance:PRIME TIME DOUGLASDOB: [facility] [place]Policy [id number] Repository ALEX[address] OSMANI Number: [address] [id number] [place], [place] [address]Nlr: (330) Date:2018-07-22 [address]Hdv: [id number] [phone] (HP)Tel: ([phone]) Name:[address] (HP) ([address]) [address], [place] [address] (WP) [address]MA: 02/01/2018 [facility] DOUGLASDOB: Insurance:PRIME TIME DOUGLASDOB: [facility] [place]Policy [id number] Repository BRAYANS OSMANI Number: [address] [place] [id number] [place], [place] [address]Ugm: (330) Date:2018-01-2619013Kqc: [id number] [phone] (HP)Tel: ([phone]) Name:[address] (HP) ([address]) [address], [place] [address] (WP) [address]MD: 01/19/2018 [facility] DOUGLASDOB: Insurance:PRIME TIME DOUGLASDOB: [facility] HEALTH ([place])Policy [id number] Repository BRAYANS OSMANI Number: [address] [place] [id number] [place], [place] [address]Fnj: (330) Date:2018-01-1914519Qmn: [id number] [phone] (HP)Tel: ([phone]) Name:[address] (HP) ([address]) [address], [place] [address] (WP) [phone]:
== END ==
PROVIDERS: Referring Provider Internal Medicine Medical Oncology; Visit Provider Internal Medicine Medical Oncology
DX: C56.9 Malignant neoplasm of unspecified ovary (principal)
CPT/HCPCS: 36415; 80053; 85025; 86304

== ENCOUNTER → 2018-10-01 09:33 | Outpatient (CLI) | payer MEDICARE, SELFPAY ==
[2018-09-09 16:36] VITALS: BMI 35.9
--- NOTE | 2018-10-01 09:45 | RAD_ITS ---
Double contrast barium minimal. The preliminary film reveals hypertrophic changes and scoliosis of the lumbar spine no significant stool seen within the colon. Barium was introduced to the rectum. It reaches reach the portion of the transverse colon was introduced multiple spot films were obtained followed by overhead pictures where supine prone both lateral decubitus this revealed moderately diverticular disease in the sigmoid without diverticulitis there is no evidence of filling defects throughout the study. The postvoiding. Film revealed no abnormality detected RAD/Barium Enema w/Air Contrast IMPRESSION: Mild diverticular disease in the sigmoid without diverticulitis the rest of the examination is negative. Electronically Signed: Zeeshan Delarosa, at 15:56 EST Tel , Service support ,
== END ==
PROVIDERS: Referring Provider Internal Medicine Gastroenterology; Visit Provider Internal Medicine Gastroenterology
DX: K57.30 Diverticulosis of large intestine without perforation or abscess without bleeding (principal)
CPT/HCPCS: 74280

== ENCOUNTER → 2019-03-16 | Outpatient (CLI) | payer MEDICARE, SELFPAY ==
[2018-09-09 16:36] VITALS: BMI 35.9
[2019-03-16 09:22] LABS: Absolute Lymphocyte Count 1.96 X10^3/ul (0.83-4.51); Absolute Neutrophil Count 3.4 X10^3/uL (2.0-7.7); Basophil% 1.6 % (0-1); Eosinophil# 0.19 X10^3/uL; Eosinophils% 3.1 % (0-5); Hematocrit 47.7 % (37-47); Hemoglobin 15.6 g/dl (12.0-15.0); Lymphocyte # 1.96 X10^3/ul (4.0); Lymphocyte % 31.5 % (19-41); Mean Corp Hgb Conc 32.7 g/gl (32-36); Mean Corpuscular Hgb 31.3 pg (27.0-32.0); Mean Corpuscular Volume 95.8 fL (81-99); Monocyte# 0.53 X10^3/uL; Monocyte% 8.5 % (0-10); Neutrophil # 3.42 X10^3/uL (2.7-7.7); POSITIVE COUNT NO; POSITIVE DIFFERENTIAL NO; POSITIVE MORPHOLOGY NO; Platelet Count 255 K/mm3 (150-450); RBC Distribution Width CV 13.5 % (11.6-14.6); RBC Distribution Width SD 46.4 fl (35.1-43.9); Red Blood Count 4.98 M/mm3 (4.2-5.4); White Blood Count 6.2 K/mm3 (4.4-11.0)
[2019-03-16 10:07] LABS: AST(SGOT) 18 U/L (15-37); Alanine Aminotransfer ALT/SGPT 21 U/L (13-56); Albumin, Serum 3.7 g/dL (3.2-5.0); Alkaline Phosphatase 102 U/L (45-117); Anion Gap 2 (5-15); BUN 19 mg/dL (7-18); BUN/Creat Ratio 22.2 RATIO (10-20); Calcium,Total 9.2 mg/dL (8.5-10.1); Chloride 105 mmol/L (98-107); Creatinine, Serum 0.85 mg/dL (0.55-1.02); EST Glomerular Filtration Rate 68 mL/min (>60); Est Glom Filt Rate - Afr Amer 83 mL/min (>60); Globulin 3.7 g/dL (2.2-4.2); Glucose 80 mg/dL (74-106); Potassium 4.1 mmol/L (3.5-5.1); Protein, Total 7.4 g/dL (6.4-8.2); Sodium Level 138 mmol/L (136-145)
[2019-03-16 16:35] LABS: Xtra Tube EP Lab EXTRA TUBE
[2019-03-17 09:53] LABS: Cancer Antigen 125 7.5 U/mL (0.0-38.1)
== END | disposition home or self-care (01) ==
PROVIDERS: Referring Provider Internal Medicine Medical Oncology; Visit Provider Internal Medicine Medical Oncology
DX: Z85.43 Personal history of malignant neoplasm of ovary (principal)
CPT/HCPCS: 36415; 80053; 85025; 86304

== ENCOUNTER → 2019-07-26 | Outpatient (CLI) | payer MEDICARE, SELFPAY ==
[2019-05-12 11:08] VITALS: BMI 36.7
[2019-07-26 10:45] LABS: Absolute Lymphocyte Count 2.01 X10^3/uL (0.83-4.51); Absolute Neutrophil Count 3.7 X10^3/uL (2.0-7.7); Basophil# 0.11 X10^3/uL; Basophil% 1.6 % (0-1); Eosinophil# 0.29 X10^3/uL; Eosinophils% 4.3 % (0-5); Hematocrit 44.8 % (37-47); Hemoglobin 14.3 g/dL (12.0-15.0); Lymphocyte # 2.01 X10^3/ul (4.0); Lymphocyte % 29.7 % (19-41); Mean Corp Hgb Conc 31.9 g/dL (32-36); Mean Corpuscular Hgb 31.3 pg (27.0-32.0); Mean Platelet Vol. 10.7 fl (6.2-12.0); Monocyte# 0.67 X10^3/uL; Monocyte% 9.9 % (0-10); NRBC Flagged by Analyzer 0 % (0-5); Neutrophil # 3.68 X10^3/uL (2.7-7.7); Neutrophil % 54.4 % (47-70); Platelet Count 257 K/mm3 (150-450); Red Blood Count 4.57 M/mm3 (4.2-5.4); White Blood Count 6.8 K/mm3 (4.4-11.0)
[2019-07-26 11:08] LABS: Vitamin D,25 Hydroxy 115.6 ng/mL (29.95-100.01)
[2019-07-26 11:09] LABS: ALB/GLOB Ratio 0.9 RATIO (0.9-2.4); AST(SGOT) 21 U/L (15-37); Alanine Aminotransfer ALT/SGPT 19 U/L (13-56); Albumin, Serum 3.4 g/dL (3.2-5.0); Alkaline Phosphatase 87 U/L (45-117); Anion Gap 4 (5-15); BUN 21 mg/dL (7-18); BUN/Creat Ratio 25.7 RATIO (10-20); Calcium,Total 9.3 mg/dL (8.5-10.1); Chloride 104 mmol/L (98-107); Cholesterol 176 mg/dL (200); Creatinine, Serum 0.82 mg/dL (0.55-1.02); EST Glomerular Filtration Rate 72 mL/min (>60); Est Glom Filt Rate - Afr Amer 87 mL/min (>60); Globulin 3.9 g/dL (2.2-4.2); Glucose 85 mg/dL (74-106); High Density Lipoprotein 56 mg/dL; Potassium 4.5 mmol/L (3.5-5.1); Protein, Total 7.3 g/dL (6.4-8.2); Sodium Level 137 mmol/L (136-145); Triglycerides 73 mg/dL; Very Low Density Lipoprotein 15 mg/dL (5-40)
== END | disposition home or self-care (01) ==
LOC: MTLAB 08:29
PROVIDERS: Family Provider Nurse Practitioner Family; PCP Nurse Practitioner Family; Referring Provider Nurse Practitioner Family; Visit Provider Nurse Practitioner Family
DX: E55.9 Vitamin D deficiency, unspecified (principal); E78.5 Hyperlipidemia, unspecified; I10 Essential (primary) hypertension
CPT/HCPCS: 36415; 80053; 80061; 82306; 85025

== ENCOUNTER → 2019-09-02 09:56 | Outpatient (CLI) | payer MEDICARE, SELFPAY ==
[2019-05-12 11:08] VITALS: BMI 36.7
[2019-09-02 13:57] LABS: Vitamin D,25 Hydroxy 86.5 ng/mL (29.95-100.01)
== END ==
PROVIDERS: Family Provider Nurse Practitioner Family; PCP Nurse Practitioner Family; Referring Provider Nurse Practitioner Family; Visit Provider Nurse Practitioner Family
DX: E55.9 Vitamin D deficiency, unspecified (principal)
CPT/HCPCS: 36415; 82306

== ENCOUNTER → 2020-01-26 09:10 | Outpatient (CLI) | payer MEDICARE, SELFPAY ==
[2019-09-21 10:51] VITALS: BMI 41.5
[2020-01-26 10:33] LABS: Hematocrit 47.3 % (37-47); Hemoglobin 15.3 g/dL (12.0-15.0); Mean Corp Hgb Conc 32.3 g/dL (32-36); Mean Corpuscular Hgb 31.4 pg (27.0-32.0); Mean Corpuscular Volume 96.9 fL (81-99); Mean Platelet Vol. 10.9 fl (6.2-12.0); Platelet Count 257 K/mm3 (150-450); RBC Distribution Width CV 13.4 % (11.6-14.6); RBC Distribution Width SD 48.1 fl (35.1-43.9); Red Blood Count 4.88 M/mm3 (4.2-5.4); White Blood Count 6.9 K/mm3 (4.4-11.0)
[2020-01-26 10:48] LABS: ALB/GLOB Ratio 0.9 RATIO (0.9-2.4); AST(SGOT) 21 U/L (15-37); Alanine Aminotransfer ALT/SGPT 20 U/L (13-56); Albumin, Serum 3.5 g/dL (3.2-5.0); Alkaline Phosphatase 74 U/L (45-117); Anion Gap 3 (5-15); BUN 15 mg/dL (7-18); Calcium,Total 9.4 mg/dL (8.5-10.1); Chloride 105 mmol/L (98-107); Creatinine, Serum 0.83 mg/dL (0.55-1.02); EST Glomerular Filtration Rate 70 mL/min (>60); Est Glom Filt Rate - Afr Amer 85 mL/min (>60); Globulin 3.9 g/dL (2.2-4.2); Glucose 78 mg/dL (74-106); Potassium 4.1 mmol/L (3.5-5.1); Protein, Total 7.4 g/dL (6.4-8.2); Sodium Level 139 mmol/L (136-145)
== END ==
LOC: LAB.FUTURE 09:14 → LAB 01-27 06:36
PROVIDERS: PCP Nurse Practitioner Family; Referring Provider Nurse Practitioner Family; Visit Provider Nurse Practitioner Family
DX: I10 Essential (primary) hypertension (principal); E55.9 Vitamin D deficiency, unspecified
CPT/HCPCS: 36415; 80053; 82306; 85027

== ENCOUNTER → 2020-07-27 | Outpatient (CLI) | payer MEDICARE, SELFPAY ==
[2019-09-21 10:51] VITALS: BMI 41.5
[2020-07-27 09:24] LABS: Hemoglobin 14.9 g/dL (12.0-15.0); Mean Corp Hgb Conc 31.7 g/dL (32-36); Mean Corpuscular Hgb 31.7 pg (27.0-32.0); Mean Platelet Vol. 10.8 fl (6.2-12.0); Platelet Count 252 K/mm3 (150-450); RBC Distribution Width CV 12.7 % (11.6-14.6); RBC Distribution Width SD 47.9 fl (35.1-43.9); White Blood Count 6.6 K/mm3 (4.4-11.0)
[2020-07-27 09:47] LABS: Vitamin D,25 Hydroxy 47.7 ng/mL
[2020-07-27 09:48] LABS: ALB/GLOB Ratio 0.9 RATIO (0.9-2.4); AST(SGOT) 15 U/L (15-37); Alanine Aminotransfer ALT/SGPT 21 U/L (13-56); Albumin, Serum 3.6 g/dL (3.2-5.0); Alkaline Phosphatase 79 U/L (45-117); Anion Gap 5 (5-15); BUN 25 mg/dL (7-18); BUN/Creat Ratio 29.2 RATIO (10-20); Calcium,Total 8.9 mg/dL (8.5-10.1); Chloride 104 mmol/L (98-107); Creatinine, Serum 0.86 mg/dL (0.55-1.02); EST Glomerular Filtration Rate 68 mL/min (>60); Est Glom Filt Rate - Afr Amer 82 mL/min (>60); Globulin 3.8 g/dL (2.2-4.2); Glucose 93 mg/dL (74-106); Potassium 4.2 mmol/L (3.5-5.1); Protein, Total 7.4 g/dL (6.4-8.2); Sodium Level 139 mmol/L (136-145)
== END | disposition home or self-care (01) ==
LOC: LAB 08:48
PROVIDERS: PCP Nurse Practitioner Family; Referring Provider Nurse Practitioner Family; Visit Provider Nurse Practitioner Family
DX: I10 Essential (primary) hypertension (principal); E55.9 Vitamin D deficiency, unspecified
CPT/HCPCS: 36415; 80053; 82306; 85027

== ENCOUNTER → 2021-01-21 11:00 | Outpatient (CLI) | payer MEDICARE, SELFPAY ==
[2019-09-21 10:51] VITALS: BMI 41.5
[2021-01-21 11:58] LABS: Hemoglobin 14.5 g/dL (12.0-15.0); Mean Corp Hgb Conc 31.5 g/dL (32-36); Mean Corpuscular Hgb 31.3 pg (27.0-32.0); Mean Corpuscular Volume 99.1 fL (81-99); Mean Platelet Vol. 10.6 fl (6.2-12.0); Platelet Count 251 K/mm3 (150-450); RBC Distribution Width CV 13.2 % (11.6-14.6); RBC Distribution Width SD 48.3 fl (35.1-43.9); Red Blood Count 4.64 M/mm3 (4.2-5.4); White Blood Count 8.6 K/mm3 (4.4-11.0)
[2021-01-21 12:21] LABS: ALB/GLOB Ratio 0.9 RATIO (0.9-2.4); AST(SGOT) 17 U/L (15-37); Alanine Aminotransfer ALT/SGPT 20 U/L (13-56); Albumin, Serum 3.5 g/dL (3.2-5.0); Alkaline Phosphatase 77 U/L (45-117); Anion Gap 5 (5-15); BUN 21 mg/dL (7-18); BUN/Creat Ratio 26.3 RATIO (10-20); Calcium,Total 9.1 mg/dL (8.5-10.1); Chloride 101 mmol/L (98-107); Cholesterol 188 mg/dL (200); EST Glomerular Filtration Rate 74 mL/min (>60); Est Glom Filt Rate - Afr Amer 89 mL/min (>60); Globulin 3.8 g/dL (2.2-4.2); Glucose 84 mg/dL (74-106); High Density Lipoprotein 71 mg/dL; Potassium 4.1 mmol/L (3.5-5.1); Protein, Total 7.3 g/dL (6.4-8.2); Sodium Level 137 mmol/L (136-145); Triglycerides 64 mg/dL; Very Low Density Lipoprotein 13 mg/dL (5-40)
[2021-01-21 12:23] LABS: Vitamin D,25 Hydroxy 44.9 ng/mL
== END ==
PROVIDERS: PCP Nurse Practitioner Family; Referring Provider Nurse Practitioner Family; Visit Provider Nurse Practitioner Family
DX: I10 Essential (primary) hypertension (principal); E55.9 Vitamin D deficiency, unspecified; Z13.220 Encounter for screening for lipoid disorders
CPT/HCPCS: 36415; 80053; 80061; 82306; 85027

== ENCOUNTER → 2021-07-25 09:33 | Outpatient (CLI) | payer MEDICARE, SELFPAY ==
[2021-07-25 12:07] LABS: Hematocrit 45.8 % (37-47); Hemoglobin 14.7 g/dL (12.0-15.0); Mean Corp Hgb Conc 32.1 g/dL (32-36); Mean Corpuscular Hgb 31.7 pg (27.0-32.0); Mean Corpuscular Volume 98.9 fL (81-99); Mean Platelet Vol. 10.8 fl (6.2-12.0); Platelet Count 378 K/mm3 (150-450); RBC Distribution Width CV 13.2 % (11.6-14.6); RBC Distribution Width SD 47.8 fl (35.1-43.9); Red Blood Count 4.63 M/mm3 (4.2-5.4); White Blood Count 8.3 K/mm3 (4.4-11.0)
[2021-07-25 12:50] LABS: ALB/GLOB Ratio 0.7 RATIO (0.9-2.4); AST(SGOT) 19 U/L (15-37); Alanine Aminotransfer ALT/SGPT 22 U/L (13-56); Albumin, Serum 3.1 g/dL (3.2-5.0); Alkaline Phosphatase 76 U/L (45-117); Anion Gap 7 (5-15); BUN 12 mg/dL (7-18); Calcium,Total 9.2 mg/dL (8.5-10.1); Chloride 101 mmol/L (98-107); EST Glomerular Filtration Rate 73 mL/min (>60); Est Glom Filt Rate - Afr Amer 88 mL/min (>60); Globulin 4.3 g/dL (2.2-4.2); Glucose 86 mg/dL (74-106); Potassium 3.8 mmol/L (3.5-5.1); Protein, Total 7.4 g/dL (6.4-8.2); Sodium Level 138 mmol/L (136-145)
[2021-07-25 13:06] LABS: Vitamin D,25 Hydroxy 54.3 ng/mL
== END ==
PROVIDERS: PCP Nurse Practitioner Family; Referring Provider Nurse Practitioner Family; Visit Provider Nurse Practitioner Family
DX: E55.9 Vitamin D deficiency, unspecified (principal); I10 Essential (primary) hypertension
CPT/HCPCS: 36415; 80053; 82306; 85027

== ENCOUNTER → 2022-01-23 | Outpatient (CLI) | payer MEDICARE, SELFPAY ==
[2022-01-23 09:03] LABS: Hematocrit 45.2 % (37-47); Hemoglobin 14.6 g/dL (12.0-15.0); Mean Corp Hgb Conc 32.3 g/dL (32-36); Mean Corpuscular Hgb 31.7 pg (27.0-32.0); Mean Platelet Vol. 10.3 fl (6.2-12.0); Platelet Count 250 K/mm3 (150-450); RBC Distribution Width CV 14.5 % (11.6-14.6); RBC Distribution Width SD 52.3 fl (35.1-43.9); Red Blood Count 4.61 M/mm3 (4.2-5.4); White Blood Count 6.9 K/mm3 (4.4-11.0)
[2022-01-23 09:30] LABS: ALB/GLOB Ratio 0.8 RATIO (0.9-2.4); AST(SGOT) 16 U/L (15-37); Alanine Aminotransfer ALT/SGPT 21 U/L (13-56); Albumin, Serum 3.4 g/dL (3.2-5.0); Alkaline Phosphatase 73 U/L (45-117); Anion Gap 3 (5-15); BUN 24 mg/dL (7-18); BUN/Creat Ratio 28.3 RATIO (10-20); Calcium,Total 9.3 mg/dL (8.5-10.1); Chloride 105 mmol/L (98-107); Cholesterol 182 mg/dL (200); Creatinine, Serum 0.85 mg/dL (0.55-1.02); EST Glomerular Filtration Rate 68 mL/min (>60); Est Glom Filt Rate - Afr Amer 83 mL/min (>60); Glucose 88 mg/dL (74-106); High Density Lipoprotein 62 mg/dL; Potassium 4.5 mmol/L (3.5-5.1); Protein, Total 7.4 g/dL (6.4-8.2); Sodium Level 139 mmol/L (136-145); Triglycerides 94 mg/dL; Very Low Density Lipoprotein 19 mg/dL (5-40); Vitamin D,25 Hydroxy 50.3 ng/mL
== END | disposition home or self-care (01) ==
LOC: LAB 08:37
PROVIDERS: PCP Nurse Practitioner Family; Referring Provider Nurse Practitioner Family; Visit Provider Nurse Practitioner Family
DX: I10 Essential (primary) hypertension (principal); K21.9 Gastro-esophageal reflux disease without esophagitis; F41.8 Other specified anxiety disorders; E55.9 Vitamin D deficiency, unspecified; Z13.220 Encounter for screening for lipoid disorders
CPT/HCPCS: 36415; 80053; 80061; 82306; 85027

== ENCOUNTER → 2022-07-24 | Outpatient (CLI) | payer MEDICARE, SELFPAY ==
[2022-07-24 11:05] LABS: Hematocrit 48.7 % (37-47); Hemoglobin 15.9 g/dL (12.0-15.0); Mean Corp Hgb Conc 32.6 g/dL (32-36); Mean Corpuscular Hgb 32.3 pg (27.0-32.0); Mean Platelet Vol. 10.6 fl (6.2-12.0); Platelet Count 238 K/mm3 (150-450); RBC Distribution Width CV 12.7 % (11.6-14.6); RBC Distribution Width SD 46.5 fl (35.1-43.9); Red Blood Count 4.92 M/mm3 (4.2-5.4); White Blood Count 8.1 K/mm3 (4.4-11.0)
[2022-07-24 11:26] LABS: ALB/GLOB Ratio 0.8 RATIO (0.9-2.4); AST(SGOT) 17 U/L (15-37); Alanine Aminotransfer ALT/SGPT 19 U/L (13-56); Albumin, Serum 3.4 g/dL (3.2-5.0); Alkaline Phosphatase 81 U/L (45-117); Anion Gap 4 (5-15); BUN 18 mg/dL (7-18); BUN/Creat Ratio 20.4 RATIO (10-20); Calcium,Total 9.3 mg/dL (8.5-10.1); Chloride 102 mmol/L (98-107); Cholesterol 171 mg/dL (200); Creatinine, Serum 0.88 mg/dL (0.55-1.02); EST Glomerular Filtration Rate 65 mL/min (>60); Est Glom Filt Rate - Afr Amer 79 mL/min (>60); Globulin 4.2 g/dL (2.2-4.2); Glucose 82 mg/dL (74-106); High Density Lipoprotein 62 mg/dL; Potassium 4.3 mmol/L (3.5-5.1); Protein, Total 7.6 g/dL (6.4-8.2); Sodium Level 138 mmol/L (136-145); Triglycerides 82 mg/dL; Very Low Density Lipoprotein 16 mg/dL (5-40); Vitamin D,25 Hydroxy 51.7 ng/mL
[2022-07-24 11:29] LABS: Microalbumin:Creatinine Ratio 16.7 mg/g CRE (<30 mg/g CRE)
== END | disposition home or self-care (01) ==
LOC: LAB 10:33
PROVIDERS: PCP Nurse Practitioner Family; Visit Provider Nurse Practitioner Family
DX: E55.9 Vitamin D deficiency, unspecified (principal); I10 Essential (primary) hypertension; K21.9 Gastro-esophageal reflux disease without esophagitis; F41.8 Other specified anxiety disorders; Z13.220 Encounter for screening for lipoid disorders
CPT/HCPCS: 36415; 80053; 80061; 82043; 82306; 82570; 85027

== ENCOUNTER → 2023-01-23 | Outpatient (CLI) | payer MEDICARE, SELFPAY ==
[2023-01-23 09:38] LABS: Hematocrit 45.6 % (37-47); Hemoglobin 14.9 g/dL (12.0-15.0); Mean Corp Hgb Conc 32.7 g/dL (32-36); Mean Corpuscular Volume 97.9 fL (81-99); Mean Platelet Vol. 10.2 fl (6.2-12.0); Platelet Count 254 K/mm3 (150-450); RBC Distribution Width SD 46.9 fl (35.1-43.9); Red Blood Count 4.66 M/mm3 (4.2-5.4); White Blood Count 7.7 K/mm3 (4.4-11.0)
[2023-01-23 10:00] LABS: Microalbumin,Random Urine 15.5 mg/L (NO RANGE EST.); Microalbumin:Creatinine Ratio 19.4 mg/g CRE (<30 mg/g CRE)
[2023-01-23 10:08] LABS: ALB/GLOB Ratio 0.9 RATIO (0.9-2.4); AST(SGOT) 16 U/L (15-37); Alanine Aminotransfer ALT/SGPT 20 U/L (13-56); Albumin, Serum 3.5 g/dL (3.2-5.0); Alkaline Phosphatase 77 U/L (45-117); Anion Gap 3 (5-15); BUN 24 mg/dL (7-18); Calcium,Total 9.4 mg/dL (8.5-10.1); Chloride 105 mmol/L (98-107); Creatinine, Serum 0.77 mg/dL (0.55-1.02); EST Glomerular Filtration Rate 76 mL/min (>60); Est Glom Filt Rate - Afr Amer 92 mL/min (>60); Globulin 4.1 g/dL (2.2-4.2); Glucose 86 mg/dL (74-106); Potassium 4.3 mmol/L (3.5-5.1); Protein, Total 7.6 g/dL (6.4-8.2); Sodium Level 138 mmol/L (136-145)
[2023-01-23 10:09] LABS: Vitamin D,25 Hydroxy 54.4 ng/mL
== END | disposition home or self-care (01) ==
LOC: LAB 09:10
PROVIDERS: PCP Nurse Practitioner Family; Referring Provider Nurse Practitioner Family; Visit Provider Nurse Practitioner Family
DX: R26.1 Paralytic gait (principal); R63.8 Other symptoms and signs concerning food and fluid intake; F41.8 Other specified anxiety disorders; I10 Essential (primary) hypertension; E55.9 Vitamin D deficiency, unspecified
CPT/HCPCS: 36415; 80053; 82043; 82306; 82570; 85027

== ENCOUNTER 2023-04-24 09:32 | Emergency (ER) | payer MEDICARE, SELFPAY ==
[2023-04-24 09:33] VITALS: BP 197/104; PULSE 82; RESP 16; TEMP 36.3; O2SAT 95; BMI 41.8
--- NOTE | 2023-04-24 10:00 | CT_ITS ---
HISTORY: HEAD INJURY. TECHNIQUE: Multiple axial images were obtained of the head without intravenous contrast. A radiation dose optimization technique was used for this scan. 247 images. COMPARISON: None. FINDINGS: BRAIN PARENCHYMA: Multiple foci and zones of low attenuation in the bilateral cerebral white matter compatible with chronic small vessel ischemic gliosis. No acute intra-axial hemorrhage identified. CSF SPACES: Generalized volume loss. No midline shift or other significant mass effect. No acute extra-axial hemorrhage seen. OTHER: Intact calvarium. Severe opacification of the left ethmoid, sphenoid, and maxillary sinuses with protrusion into the nasal cavity. Bilateral lens resections. Mild posterior scalp hematoma. CT/Brain/Head without Contrast IMPRESSION: No acute intracranial process identified. Chronic involutional and white matter changes. Posterior scalp hematoma. 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 Electronically Signed: Cori Drew MD at 10:13 EDT ,
--- NOTE | 2023-04-24 10:13 | EX.ED.GENINJ ---
HPI History of Present Illness Chief Complaint: Head Injury Informant: patient Onset/Context/Timing Onset: Today Narrative Narrative: Patient presents via EMS after a fall at home. She slipped in the shower and fell backwards striking the back of her head. She did not lose consciousness. She is not on anticoagulants. She reports bruises to her upper extremities bilaterally but no other injury. [facility] Medical History Arthritis Bowel obstruction History of shingles Hypertension Home Medications Soothe Eye Drops 1 drp PRN PRN Allergies 10/26/13 [History Last Taken Unknown] aspirin 81 mg chewable tablet 81 mg PO DAILY@0800 10/26/13 [History Last Taken Unknown] multivitamin with folic acid 400 mcg tablet 1 tab PO DAILY 10/26/13 [History Last Taken Unknown] citalopram 10 mg tablet 10 mg PO QHS 01/18/14 [History Last Taken Unknown] acetaminophen 500 mg tablet 500 mg PO PRN PRN Pain 02/24/17 [History Last Taken Unknown] Omeprazole [Prilosec] 40 mg PO DAILY 09/09/18 [History Last Taken Unknown] polyethylene glycol 3350 17 gram oral powder packet 17 gm PO DAILY PRN Constipation 09/09/18 [History Last Taken Unknown] naproxen sodium 220 mg tablet 220 mg PO BID 03/23/19 [History Last Taken Unknown] lisinopril 10 mg tablet 10 mg PO DAILY 05/12/19 [History Last Taken Unknown] Allergy/AdvReac Type Severity Reaction Status Date / Time Sulfa (Sulfonamide Allergy Unknown Unknown Verified 09/21/19 10:50 Antibiotics) adhesive Allergy Rash Verified 09/21/19 10:50 Family History Father Hypertension Heart disease Surgical History Hx of tonsillectomy S/P [facility] Social History number of children: 0 Smoking Status: Former smoker alcohol intake: current alcohol intake frequency: holidays/special occasions only substance use type: does not use seatbelt use: always do you feel safe at home: Yes additional social history: Mehrdad 1994 ROS ROS ED Constitutional Constitutional ED: Denies chills or fever(s) Eyes Eyes: Denies change in vision or discharge from eye(s) ENT ENT ED: Denies discharge from eye(s), rhinorrhea or sore throat Cardiovascular Cardiovascular: Denies chest pain Respiratory/Chest Respiratory/Chest: Denies cough or dyspnea Gastrointestinal Gastrointestinal: Denies abdominal pain, nausea or vomiting Musculoskeletal Musculoskeletal: Denies back pain or extremity pain Integumentary Reports other Details: Scalp hematoma ; Denies Abrasions or rash Neurologic Neurologic: Denies headache(s) or weakness Psychiatric Psychiatric: Denies anxiety or depression Allergic/Immunologic Allergic/Immunologic ED: Denies lip swelling or urticaria EXAM Physical Exam Const Vital Signs: 04/24/23 09:33 04/24/23 09:36 Temperature 97.4 F L Temperature Source Temporal Pulse Rate 82 Respiratory Rate 16 Respiratory Effort Normal Non-Labored Respiratory Pattern Normal Blood Pressure 197/104 H Blood Pressure Mean 135 Pulse Ox 95 Oxygen Delivery Method Room Air Positive well nourished and well developed General Appearance ED: well developed HEENT HEENT Narrative: Hematoma over the midline posterior parietal scalp. No lacerations noted. No C-spine tenderness. Eyes PERRL and EOMs intact bilaterally Chest Wall inspection of chest normal and palpation of chest normal Resp normal respiratory effort and clear to auscultation bilaterally Cardio regular rhythm Rate: regular rate GI non-tender Palpation: soft Extremity normal to inspection Neuro oriented x3, moves all extremities and no sensory deficits noted Motor Exam: strength 5/5 throughout Psych mental status grossly normal Skin Skin Narrative: Ecchymosis noted on the hands bilaterally. No bony tenderness full range of motion. Hematoma to the scalp as noted above. No laceration. MDM MDM MDM Narrative Medical decision making narrative: CT scan of the head obtained to evaluate for intracranial injury. Patient denies headache at this time. Radiography Diagnostic Testing: Clinical Impression(s) from Imaging Studies Brain CT 04/24/23 10:00 IMPRESSION: No acute intracranial process identified. Chronic involutional and white matter changes. Posterior scalp hematoma. 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 Electronically Signed: Cori Drew MD at 10:13 EDT , Treatment and Re-Evaluation Narrative: CT scan of the head reveals posterior scalp hematoma with no acute intracranial process. Family is here at bedside and patient be discharged with them. Close head injury instructions given along with return instructions. Discharge Plan Triage Chief Complaint: Head Injury ED Provider: Columba Hu Dx/Rx/DC Orders Clinical Impression: Closed head injury, Hematoma of scalp, Fall Instructions: ED Scalp Contusion, ED Head Injury (Adult) Prescriptions: No Action lisinopril 10 mg tablet 10 mg PO DAILY aspirin 81 MG tablet,chewable 81 mg PO DAILY@0800 multivitamin with folic acid 1 TABLET tablet 1 tab PO DAILY Soothe Eye Drops liquid 1 drp Each Eye PRN PRN (Reason: Allergies) citalopram 10 MG tablet 10 mg PO QHS acetaminophen 500 MG tablet 500 mg PO PRN PRN (Reason: Pain) polyethylene glycol 3350 17 GM packet 17 gm PO DAILY PRN (Reason: Constipation) Omeprazole [Prilosec] 40 MG capsule 40 mg PO DAILY naproxen sodium 220 MG tablet 220 mg PO BID Primary Care Provider: Ihsan Cramer NP Referrals: Ihsan Cramer DISTRIBUTION SYSTEMS SUPERINTENDENT, DISTRIBUTION SYSTEMS SUPERINTENDENT-C [Primary Care Provider] - 1 Week Disposition Disposition: Home, Self Care
== END 2023-04-24 10:33 | disposition home or self-care (01) ==
LOC: ED 10:25
PROVIDERS: Emergency Provider Emergency Medicine; PCP Nurse Practitioner Family; Visit Provider Emergency Medicine
DX: S00.03XA Contusion of scalp, initial encounter (principal); I10 Essential (primary) hypertension; Z87.891 Personal history of nicotine dependence; W18.2XXA Fall in (into) shower or empty bathtub, initial encounter
CPT/HCPCS: 70450; 99284

== ENCOUNTER → 2023-07-27 | Outpatient (CLI) | payer MEDICARE, SELFPAY ==
[2023-07-27 12:49] LABS: Vitamin D,25 Hydroxy 57.5 ng/mL
[2023-07-27 12:53] LABS: Hemoglobin A1c 4.9 % (3.8-5.6)
[2023-07-27 13:17] LABS: ALB/GLOB Ratio 0.7 RATIO (0.9-2.4); AST(SGOT) 15 U/L (15-37); Alanine Aminotransfer ALT/SGPT 18 U/L (13-56); Albumin, Serum 3.1 g/dL (3.2-5.0); Alkaline Phosphatase 84 U/L (45-117); Anion Gap 5 (5-15); BUN 17 mg/dL (7-18); BUN/Creat Ratio 20.6 RATIO (10-20); Calcium,Total 9.1 mg/dL (8.5-10.1); Chloride 105 mmol/L (98-107); Cholesterol 161 mg/dL (200); Creatinine, Serum 0.83 mg/dL (0.55-1.02); EST Glomerular Filtration Rate 70 mL/min (>60); Est Glom Filt Rate - Afr Amer 85 mL/min (>60); Globulin 4.5 g/dL (2.2-4.2); Glucose 96 mg/dL (74-106); High Density Lipoprotein 57 mg/dL; Potassium 4.4 mmol/L (3.5-5.1); Protein, Total 7.6 g/dL (6.4-8.2); Sodium Level 139 mmol/L (136-145); Triglycerides 67 mg/dL; Very Low Density Lipoprotein 13 mg/dL (5-40)
== END | disposition home or self-care (01) ==
PROVIDERS: PCP Nurse Practitioner Family; Referring Provider Nurse Practitioner Family; Visit Provider Nurse Practitioner Family
DX: I10 Essential (primary) hypertension (principal); Z13.220 Encounter for screening for lipoid disorders; E55.9 Vitamin D deficiency, unspecified; Z13.1 Encounter for screening for diabetes mellitus
CPT/HCPCS: 36415; 80053; 80061; 82306; 83036

== ENCOUNTER 2023-07-30 11:30 | Inpatient (IN) | payer MEDICARE, SELFPAY ==
[2023-07-30] VITALS (10 sets, daily range): BP systolic 127–179; BP diastolic 47–135; PULSE 86–100; RESP 16–23; TEMP 36.4–37.6; O2SAT 91–95; BMI 40.2
--- NOTE | 2023-07-30 11:48 | EX.ED.DYSGE1 ---
HPI History of Present Illness Chief Complaint: Weakness [facility] Medical History Arthritis Bowel obstruction History of shingles Hypertension Home Medications aspirin 81 mg chewable tablet 81 mg PO DAILY heart health 10/26/13 [History Last Taken 07/30/23] citalopram 10 mg tablet 10 mg PO QHS depression 01/18/14 [History Last Taken 07/29/23] acetaminophen 500 mg tablet 1,000 mg PO 4X/DAY PRN Pain 02/24/17 [History Last Taken Unknown] naproxen sodium 220 mg tablet 440 mg PO DAILY inflammation 03/23/19 [History Last Taken 07/30/23] lisinopril 10 mg tablet 10 mg PO DAILY blood pressure 05/12/19 [History Last Taken 07/30/23] loperamide 2 mg capsule 2 mg PO UD PRN loose stool 07/30/23 [History Last Taken Unknown] multivitamin 1 tab PO DAILY health maintenance 07/30/23 [History Last Taken 07/30/23] omeprazole 40 mg capsule,delayed release 40 mg PO DAILY acid reflux 07/30/23 [History Last Taken 07/30/23] propranolol 80 mg tablet 160 mg PO DAILY blood pressure 07/30/23 [History Last Taken 07/30/23] Allergy/AdvReac Type Severity Reaction Status Date / Time Sulfa (Sulfonamide Allergy Unknown Unknown Verified 09/21/19 10:50 Antibiotics) adhesive Allergy Rash Verified 09/21/19 10:50 Family History Father Hypertension Heart disease Surgical History Hx of tonsillectomy S/P [facility] Social History number of children: 0 Smoking Status: Former smoker alcohol intake: current alcohol intake frequency: holidays/special occasions only substance use type: does not use seatbelt use: always do you feel safe at home: Yes additional social history: 1993 EXAM Physical Exam Const Vital Signs: 07/30/23 11:36 07/30/23 11:40 07/30/23 11:40 Temperature 97.6 F L Temperature Source Oral Pulse Rate 90 89 Respiratory Rate 22 H 23 H Respiratory Effort Normal Respiratory Pattern Tachypnea Blood Pressure 164/135 H Blood Pressure Mean 144 Pulse Ox 91 91 Oxygen Delivery Method Room Air Room Air 07/30/23 11:43 07/30/23 13:05 Temperature 97.6 F L 97.6 F L Temperature Source Oral Oral Pulse Rate 86 94 Respiratory Rate 22 H 23 H Respiratory Effort Respiratory Pattern Blood Pressure 152/115 H 143/119 H Blood Pressure Mean 127 127 Pulse Ox 93 93 Oxygen Delivery Method Room Air Room Air [facility] Narrative Medical decision making narrative: HISTORY OF PRESENT ILLNESS: 82-year-old male here for concern for weakness after getting a flu shot yesterday. SHe further states she received her flu vaccine yesterday and since has been diffusely weak, fatigued states she had vomiting last night. Notes diffuse abdominal pain. Notes blood per rectum. REVIEW OF SYSTEMS: Pertinent positives: Weakness Pertinent negatives: Focal weakness, fever, PHYSICAL EXAM: Nursing triage notes reviewed, Vital signs reviewed Constitutional: please see mdm HENT: MMM Eyes: Pupils equal round and reactive to light, Extraocular muscles intact Neck: No stridor, no JVD, full neck ROM Lungs: Clear to auscultation, No wheezing or rales. No increased work of breathing, no conversational dyspnea, no accessory muscle use, no nasal flaring. No respiratory distress noted Heart: Regular rate and rhythm, No murmurs, No rubs and No gallops, 2+ distal pulses (radial, femoral, posterior tibial) in all extremities Abdomen: Soft, diffuse abdominal tenderness noted rigidity, rebound or guarding, no obvious peritoneal signs, no palpable pulsatile abdominal masses, no auscultated abdominal bruit : No CVAT Extremities: No edema Rectal: Bright red blood per rectum Neuro: Alert and oriented x3, neuro exam at baseline, cranial nerves II through XII are intact. No pain with extraocular muscle movement. There is negative test of skew. 5 of 5 strength in upper and lower extremities in flexion extension. Intact sensation to light touch in upper and lower extremity dermatomes. No truncal or extremity ataxia. No dysdiadochokinesia. Normal gait. 2+ reflexes in upper and lower extremities. No meningeal signs. Negative Babinski. NIH of 0. Skin: No rash or lesions noted MEDICAL DECISION MAKING: Chief Complaint: Weakness External records reviewed: Prior ED records reviewed: Last ED visit in April 2023 for fall Factors affecting care: Hypertension, arthritis and bowel obstruction Social determinants of health: Elderly History obtained from others: EMS Consults: Internal medicine (Dr. Lamar) MDM Narrative: Patient was hemodynamically stable, afebrile and nontoxic-appearing. Exam without focal cardiopulmonary abnormalities or focal neurologic deficits. Rectal exam with bright red blood per rectum. I considered the following differential diagnosis: Intra-abdominal pathology, ACS, arrhythmia, severe anemia, GI bleed, pneumonia ALL IMAGES (IF OBTAINED) HAVE BEEN PERSONALLY REVIEWED AND INTERPRETED BY MYSELF. EKG with normal sinus rhythm, left axis deviation, normal intervals, no obvious STEMI CBC with significant leukocytosis suggestive of some inflammation, no obvious anemia noted hemoconcentration, no thrombocytopenia BMP with mild YOHANA, no significant Kellie normalities, no anion gap LFTs show no evidence of hepatobiliary pathology. Troponin is negative, no evidence of myocardial ischemia Lipase is wnl indicating no pancreatic inflammation. BNP elevated consistent with increased ventricular stretch Hemoccult stool positive Chest x-ray was read reviewed myself shows evidence of a component of pulmonary vascular congestion but no obvious pneumonia or pneumothorax. Synthesis of the patient's history, physical exam, labs, images are consistent with pancolitis, likely GI bleed. She is on some anemia on a blood thinner. She received IV antibiotics with IV fluids and will be admitted. The patient and/or family, caregivers express understanding. The patient and/or family, caregivers agrees with the plan. Shared decision making: I will have a discussion with the patient and or visitors regarding risk/benefits of further testing or admission. They will be made aware of of the risk/benefits inherent in this decision they will be given the opportunity to voice understanding. Total critical care time today provided was at least 0 [] minutes. This excludes separately billable procedures. Critical care time (if documented) is secondary to the patient having high probability of clinically significant/life threatening deterioration in the patient's condition which required my urgent intervention. Impression: 1. Fatigue 2. GI bleed 3. Leukocytosis 4. YOHANA 5. Pancolitis Dispo: Admit Lab Data Labs: Laboratory Results - last 24 hr 07/30/23 12:20 WBC 19.3 H RBC 5.08 Hgb 15.7 H Hct 48.5 H MCV 95.5 MCH 30.9 MCHC 32.4 RDW Std Deviation 47.4 H RDW Coeff of Lee 13.2 Plt Count 276 MPV 10.1 Immature Gran % (Auto) 0.500 Neut % (Auto) 83.9 H Lymph % (Auto) 7.5 L [place] % (Auto) 7.2 Eos % (Auto) 0.5 Baso % (Auto) 0.4 Absolute Neuts (auto) 16.2 H Absolute Lymphs (auto) 1.44 Nucleated RBC % 0 PT 14.4 INR 1.1 APTT 31.2 Sodium 140 Potassium 4.1 Chloride 105 Carbon Dioxide 29.0 Anion Gap 6 BUN 25 H Creatinine 1.16 H Estim Creat Clear Calc 28.22 Est GFR (MDRD) Af Amer 57 L Est GFR (MDRD) Non-Af 47 L BUN/Creatinine Ratio 21.6 H Glucose 138 H Calcium 9.2 Total Bilirubin 0.80 Direct Bilirubin 0.30 AST 15 ALT 20 Alkaline Phosphatase 86 Troponin I High Sens 8 B-Natriuretic Peptide 166.7 H Total Protein 7.9 Albumin 3.2 Globulin 4.7 H Lipase 14 Blood Type O POSITIVE Antibody Screen NEGATIVE Radiography Diagnostic Testing: Clinical Impression(s) from Imaging Studies Abdomen/Pelvis CT 07/30/23 12:03 IMPRESSION: Lange colitis. Fatty infiltration of the liver. Electronically Signed: Timothy Cain MD at 13:45 EDT Reading Location ID and State: [facility] / [place] , Service support , Chest X-Ray 07/30/23 12:35 IMPRESSION: Mild degree of vascular congestion. Electronically Signed: Timothy Cain MD at 13:20 EDT , Discharge Plan Triage Chief Complaint: Weakness ED Provider: Hi Lopez Dx/Rx/DC Orders Prescriptions: No Action lisinopril 10 mg tablet 10 mg PO DAILY aspirin 81 MG tablet,chewable 81 mg PO DAILY citalopram 10 MG tablet 10 mg PO QHS acetaminophen 500 MG tablet 1,000 mg PO 4X/DAY PRN (Reason: Pain) naproxen sodium 220 MG tablet 440 mg PO DAILY multivitamin Tablet 1 tab PO DAILY omeprazole 40 mg capsule,delayed release(DR/EC) 40 mg PO DAILY loperamide 2 mg capsule 2 mg PO UD PRN (Reason: loose stool) Rx Instructions: take one capsule by mouth as needed for each additional loose stool. do not exceed 8 capsules within a day. propranolol 80 mg tablet 160 mg PO DAILY Primary Care Provider: Ihsan Cramer NP Referrals: Ihsan Cramer NP, [facility] [Primary Care Provider] -
--- NOTE | 2023-07-30 12:03 | CT_ITS ---
STUDY: CT ABDOMEN AND PELVIS WITH CONTRAST REASON FOR EXAM: Female, 82 years old. Abdominal pain. Blood is seen within the stool. RADIATION DOSAGE (If Supplied By Facility): CTDIvol = ( 16.26 ) mGy, DLP = ( 1126.28 ) mGycm TECHNIQUE: Transaxial images were obtained from the dome of the diaphragm to the symphysis pubis without oral contrast. IV 100mL Isovue-300 was administered. Sagittal and coronal images were reconstructed. Individualized dose optimization techniques were used for this CT. COMPARISON: None. FINDINGS: Mild increased linear markings in the peripheral aspects of both lung bases suggestive of the bibasilar scarring worse at the left lung base. Coronary artery calcification. There is decreased attenuation of the liver consistent with steatosis. Normal gallbladder and extrahepatic biliary system. Normal spleen. Normal pancreas. Normal bilateral adrenal glands. Normal right kidney. Normal left kidney. Normal visualized stomach. Normal small intestine. Pancolitis worse in the left hemicolon. Scattered sigmoid diverticula. There is non-visualization of the appendix. There is diffuse atherosclerotic calcification of the abdominal aorta, without a demonstrated aneurysm. Normal inferior vena cava. Normal retroperitoneum. Normal urinary bladder. There is absence of the uterus consistent with a prior hysterectomy. Normal abdominal wall. There are diffuse degenerative changes of the visualized lumbar spine. Levoscoliosis. CT/Abdomen/Pelvis W IV Cont ONLY IMPRESSION: Lange colitis. Fatty infiltration of the liver. Electronically Signed: Timothy Cain MD at 13:45 EDT ,
[2023-07-30] MEDS: 0.9% Normal Saline (500mL Bag) 500 ML 1000 ML IV (12:19)
--- NOTE | 2023-07-30 12:35 | RAD_ITS ---
STUDY: X-RAY CHEST REASON FOR EXAM: Female, 82 years old. One-day history of weakness. TECHNIQUE: Single AP portable view of the chest. COMPARISON: None. FINDINGS: EKG electrodes are seen. Mild degree of vascular congestion. There is no demonstrated pleural abnormality. Normal size heart. Normal mediastinum and jimy. Normal visualized pulmonary arteries. There is atherosclerotic tortuosity of the aortic arch and descending thoracic aorta. There are diffuse degenerative changes of the visualized thoracic spine. Normal visualized ribs, clavicles, and shoulders. There is no demonstrated abnormality of the visualized soft tissue structures of the upper abdomen. RAD/Chest 1 View (Portable) IMPRESSION: Mild degree of vascular congestion. Electronically Signed: Timothy Cain MD at 13:20 EDT ,
[2023-07-30 12:36] LABS: Absolute Lymphocyte Count 1.44 X10^3/uL (0.83-4.51); Absolute Neutrophil Count 16.2 X10^3/uL (2.0-7.7); Basophil# 0.07 X10^3/uL; Basophil% 0.4 % (0-1); Eosinophil# 0.09 X10^3/uL; Eosinophils% 0.5 % (0-5); Hematocrit 48.5 % (37-47); Hemoglobin 15.7 g/dL (12.0-15.0); Lymphocyte # 1.44 X10^3/ul (0.83-4.51); Lymphocyte % 7.5 % (19-41); Mean Corp Hgb Conc 32.4 g/dL (32-36); Mean Corpuscular Hgb 30.9 pg (27.0-32.0); Mean Corpuscular Volume 95.5 fL (81-99); Mean Platelet Vol. 10.1 fl (6.2-12.0); Monocyte# 1.38 X10^3/uL; Monocyte% 7.2 % (0-10); NRBC Flagged by Analyzer 0 % (0-5); Neutrophil # 16.18 X10^3/uL (2.7-7.7); Neutrophil % 83.9 % (47-70); Platelet Count 276 K/mm3 (150-450); RBC Distribution Width CV 13.2 % (11.6-14.6); RBC Distribution Width SD 47.4 fl (35.1-43.9); Red Blood Count 5.08 M/mm3 (4.2-5.4); White Blood Count 19.3 K/mm3 (4.4-11.0)
[2023-07-30 12:48] LABS: International Normalized Ratio 1.1; Prothrombin Time (Protime)PT. 14.4 SECONDS (11.7-14.9)
[2023-07-30 12:51] LABS: AST(SGOT) 15 U/L (15-37); Alanine Aminotransfer ALT/SGPT 20 U/L (13-56); Albumin, Serum 3.2 g/dL (3.2-5.0); Alkaline Phosphatase 86 U/L (45-117); Anion Gap 6 (5-15); BUN 25 mg/dL (7-18); BUN/Creat Ratio 21.6 RATIO (10-20); Calcium,Total 9.2 mg/dL (8.5-10.1); Chloride 105 mmol/L (98-107); Creatinine, Serum 1.16 mg/dL (0.55-1.02); EST Glomerular Filtration Rate 47 mL/min (>60); Est Glom Filt Rate - Afr Amer 57 mL/min (>60); Estimated Creatinine Clearance 28.22 ml/min; Globulin 4.7 g/dL (2.2-4.2); Glucose 138 mg/dL (74-106); Lipase 14 U/L (13-75); Partial Thromboplast Time 31.2 Seconds (24.1-36.2); Potassium 4.1 mmol/L (3.5-5.1); Protein, Total 7.9 g/dL (6.4-8.2); Sodium Level 140 mmol/L (136-145); Troponin-I HS 8 pg/mL (3.0-54.0)
[2023-07-30] MEDS: 0.9% Normal Saline (500mL Bag) 500 ML 999 ML IV (13:04)
[2023-07-30] MEDS: Ketorolac 15 MG/ML Vial IV (13:05)
[2023-07-30 13:09] LABS: BNP,B-Type NATRIURETIC PEPTIDE 166.7 pg/mL (0-100)
--- NOTE | 2023-07-30 14:46 | PCM.HP.STD ---
HPI - General General Date of Admission: 07/30/23 Date of Service: 07/30/23 Chief Complaint: Generalized weakness and blood in stool HPI Narrative FLORIAN CHAPMAN, is a 82 F who presented to the emergency department at [facility] on 07/30/2023 with chief complaint of generalized weakness and blood that was found in her stool last evening and this morning. Patient states she was feeling well yesterday and got her flu shot. Last evening she developed some generalized weakness felt warm and had some chills. She was also noting some blood in her stool. She had a bout of emesis last evening and reported that there was blood in it she thinks. She woke up today feeling weaker than yesterday had nausea and vomiting again with what she thought to be blood in her vomit and blood in her stool. Patient indicates overall she has been very fatigued and generally feeling unwell. She states she had a headache, ongoing nausea and vomiting, diarrhea, mild diffuse abdominal pain, Generalized weakness, and significant fatigue. Her daughter concurs that she was fine yesterday and is much different today. She has not been on antibiotics recently and again stated she was feeling well up until yesterday. Vital signs on presentation showed temperature of 99, heart rate 100, blood pressure is 148/105, respiratory rate 20 and oxygen saturations are 93% on room air. Her CBC shows a significant leukocytosis with a white count of 19.3, her hemoglobin is 15.7 above her baseline of 13-14 and her platelet count is 276,000. She does have a left shift with an 83.9% neutrophilia. Coags are normal. Her chemistry panel shows normal electrolytes however her BUN is slightly elevated from her baseline at 25 and her serum creatinine is above her baseline as well at 1.616. (Baseline creatinine 0.7-0.9). Her glucose was mildly elevated at 138. Her LFTs were unremarkable. Troponin was normal at 8. Lipase was 14. Her urine shows ketones and nitrites as well as leuk esterase white cells and 1+ bacteria. EKG shows normal sinus rhythm, with normal intervals. No ST-T wave changes concerning for acute ischemia. COVID testing was unremarkable. Stool occult was positive for blood. Chest x-ray shows some mild vascular congestion and CT of the abdomen pelvis shows bibasilar scarring with coronary artery calcification, hepatosteatosis, pancolitis that is worse in the left hemicolon and scattered sigmoid diverticuli. She was given IV fluids and started on Zosyn in the emergency department request for admission was made. [facility] Medical History Arthritis Bowel obstruction History of shingles Hypertension Home Medications aspirin 81 mg chewable tablet 81 mg PO DAILY heart health 10/26/13 [History Last Taken 07/30/23] citalopram 10 mg tablet 10 mg PO QHS depression 01/18/14 [History Last Taken 07/29/23] acetaminophen 500 mg tablet 1,000 mg PO 4X/DAY PRN Pain 02/24/17 [History Last Taken Unknown] naproxen sodium 220 mg tablet 220 mg PO BID inflammation 03/23/19 [History Last Taken 07/30/23] lisinopril 10 mg tablet 10 mg PO DAILY blood pressure 05/12/19 [History Last Taken 07/30/23] loperamide 2 mg capsule 2 mg PO UD PRN loose stool 07/30/23 [History Last Taken Unknown] multivitamin 1 tab PO DAILY health maintenance 07/30/23 [History Last Taken 07/30/23] omeprazole 40 mg capsule,delayed release 40 mg PO DAILY acid reflux 07/30/23 [History Last Taken 07/30/23] polyethylene glycol 3350 17 gram/dose oral powder (ClearLax) 17 g PO DAILY constipation 07/30/23 [History Last Taken Unknown] propranolol 80 mg tablet 80 mg PO BID blood pressure 07/30/23 [History Last Taken 07/30/23] Allergy/AdvReac Type Severity Reaction Status Date / Time Sulfa (Sulfonamide Allergy Unknown Unknown Verified 09/21/19 10:50 Antibiotics) adhesive Allergy Rash Verified 09/21/19 10:50 Family History Father Hypertension Heart disease Surgical History Hx of tonsillectomy S/P [facility] Social History (Updated 07/30/23 @ 15:[address] Dianna Lamar DO) housing: assisted living facility Smoking Status: Former smoker alcohol intake: current alcohol intake frequency: holidays/special occasions only substance use type: does not use seatbelt use: always do you feel safe at home: Yes additional social history: Mehrdad 1993 ROS Constitutional Constitutional: Reports chills, fatigue, fever(s), malaise and weakness; Denies anorexia, change in weight, night sweats or other Eyes Eyes: Denies blurry vision, change in eye color, change in vision, discharge from eye(s), double vision, erythema, eye pain, loss of vision or other ENT HEENT: Reports headache(s); Denies abnormal hearing, dysphagia, ear pain, epistaxis, hearing loss, nasal congestion, nasal discharge, post nasal drip, sinus pressure, sore throat or other Cardiovascular Cardiovascular: Denies chest pain, claudication, dyspnea on exertion, edema, lightheadedness, orthopnea, palpitations, paroxysmal nocturnal dyspnea, rapid heart rate, syncope or other Respiratory/Chest Respiratory/Chest: Denies cough, dyspnea, excessive phlegm production, hemoptysis, productive cough, shortness of breath at rest, shortness of breath with exertion, wheezing or other Gastrointestinal Gastrointestinal: Reports abdominal pain, coffee ground emesis, diarrhea, hematochezia, nausea and vomiting Genitourinary Genitourinary: Reports urinary frequency and urinary incontinence; Denies burning urination, difficulty urinating, dysuria, hematuria, nocturia, urinary hesitancy, urinary urgency or other Musculoskeletal Musculoskeletal: Reports myalgias; Denies arthralgias, back pain, joint pain, joint stiffness, joint swelling, neck pain or other Neurologic Neurologic: Denies abnormal gait, abnormal speech, confusion, disequilibrium, dizziness, focal weakness, headache(s), numbness, paresthesias, seizure-like activity, seizures, syncope, tingling, tremor(s) or other Psychiatric Psychiatric: Denies anxiety, depression, homicidal ideation, suicidal ideation or other Endocrine Endocrinology: Denies change in body appearance, cold intolerance, excessive sweating, heat intolerance, polydipsia, polyuria or other Hematologic/Lymphatic Hematologic/Lymphatic: Denies anemia, easy bleeding, easy bruising, lymphadenopathy or other Allergic/Immunologic Allergic/Immunologic: Denies rhinitis, hives, eczemia, asthma or other Vital Signs Vital Signs Vital Signs: 07/30/23 11:36 07/30/23 11:40 07/30/23 11:40 Temperature 97.6 F L Temperature Source Oral Pulse Rate 90 89 Respiratory Rate 22 H 23 H Respiratory Effort Normal Respiratory Pattern Tachypnea Blood Pressure 164/135 H Blood Pressure Mean 144 Pulse Ox 91 91 Oxygen Delivery Method Room Air Room Air 07/30/23 11:43 07/30/23 13:05 07/30/23 14:34 Temperature 97.6 F L 97.6 F L Temperature Source Oral Oral Pulse Rate 86 94 100 Respiratory Rate 22 H 23 H 20 H Respiratory Effort Respiratory Pattern Blood Pressure 152/115 H 143/119 H 148/105 H Blood Pressure Mean 127 127 119 Pulse Ox 93 93 93 Oxygen Delivery Method Room Air Room Air Room Air 07/30/23 14:34 Temperature 99 F Temperature Source Oral Pulse Rate 100 Respiratory Rate 20 H Respiratory Effort Respiratory Pattern Blood Pressure 148/105 H Blood Pressure Mean 119 Pulse Ox 93 Oxygen Delivery Method Room Air Weight Weight: 96.6 kg Body Mass Index (BMI) 40.2 Physical Exam Const alert, oriented x3 and well nourished; Negative for average body habitus or healthy appearing Constitutional Narrative: Elderly, morbidly obese, ill-appearing, white female, does not appear overtly toxic but appears ill, appears tired, currently in no distress General Appearance: cooperative HEENT normocephalic and head/scalp atraumatic; Negative for hearing grossly normal bilaterally or moist oral mucous membranes HEENT Narrative: Black coating on tongue from emesis, mild hearing loss, mucous membranes are slightly dry Eyes PERRL, EOMs intact bilaterally and conjunctivae normal Eyes Narrative: No scleral icterus Neck no lymphadenopathy and supple Resp normal respiratory effort, no retractions, no use of accessory muscles and clear to auscultation bilaterally Auscultation: Negative for rales, rhonchi or wheezes Cardio regular rate, regular rhythm, S1 normal heart sound, S2 normal heart sound, no murmurs, no rub, no gallops and no clicks GI normal to inspection, nondistended, normoactive bowel sounds and soft to palpation GI Narrative: Mild diffuse tenderness worse on the left Extremity no clubbing, cyanosis or edema Extremity Narrative: Pedal pulses are 2+ Skin no rashes or lesions noted, no wounds, skin turgor normal, no jaundice, no petechiae and no mottling Neuro oriented x3, CN's II-XII intact bilaterally, moves all extremities and no focal motor deficits Neuro Narrative: Kniffen generalized weakness noted but no focal deficit Speech: speech normal Psych Psych Narrative: Affect is somewhat flat however eye contact is good and mood is stable-patient appears like she is not feeling well Results Medical Records Data Attestation: I reviewed the patient's medical records Lab / Micro Data 07/30/23 12:20 07/30/23 12:20 Labs: Laboratory Results - last 24 hr 07/30/23 12:20: WBC 19.3 H, RBC 5.08, Hgb 15.7 H, Hct 48.5 H, MCV 95.5, MCH 30.9, MCHC 32.4, RDW Std Deviation 47.4 H, RDW Coeff of Lee 13.2, Plt Count 276, MPV 10.1, Immature Gran % (Auto) 0.500, Neut % (Auto) 83.9 H, Lymph % (Auto) 7.5 L, [place] % (Auto) 7.2, Eos % (Auto) 0.5, Baso % (Auto) 0.4, Absolute Neuts (auto) 16.2 H, Absolute Lymphs (auto) 1.44, Nucleated RBC % 0, PT 14.4, INR 1.1, APTT 31.2, Sodium 140, Potassium 4.1, Chloride 105, Carbon Dioxide 29.0, Anion Gap 6, BUN 25 H, Creatinine 1.16 H, Estim Creat Clear Calc 28.22, Est GFR (MDRD) Af Amer 57 L, Est GFR (MDRD) Non-Af 47 L, BUN/Creatinine Ratio 21.6 H, Glucose 138 H, Calcium 9.2, Total Bilirubin 0.80, Direct Bilirubin 0.30, AST 15, ALT 20, Alkaline Phosphatase 86, Troponin I High Sens 8, B-Natriuretic Peptide 166.7 H, Total Protein 7.9, Albumin 3.2, Globulin 4.7 H, Lipase 14, Blood Type O POSITIVE, Antibody Screen NEGATIVE Micro: Microbiology 07/30/23 12:22 Nasal Secretion SARS-CoV-2 & FLU Antigen (Rapid) - Final 07/30/23 12:11 Stool Stool Occult Blood (SHEILA) - Final Occult Blood Positive Radiology Impression Abdomen/Pelvis CT 07/30/23 12:03 IMPRESSION: Lange colitis. Fatty infiltration of the liver. Electronically Signed: Timothy Cain MD at 13:45 EDT , Chest X-Ray 07/30/23 12:35 IMPRESSION: Mild degree of vascular congestion. Electronically Signed: Timothy Cain MD at 13:20 EDT , Assessment & Plan Assessment/Plan (1) Pancolitis: (2) Leukocytosis: (3) GI bleeding: (4) Dehydration: (5) Debility: (6) Generalized weakness: (7) Hematemesis: PLAN: Pancolitis -Etiology is unclear however likely infectious versus ischemic versus inflammatory -Check C. difficile -Check enteric panel -Check stool for lactoferrin -Clear liquid diet only for now -IV fluids as ordered-as needed pain medication -As needed antiemetics -Zosyn -Check blood cultures -Consult to GI GI bleeding -Patient reports emesis with blood as well as positive guaiac -Not clearly upper GI bleed -We will give Protonix 40 mg IV push twice daily -Cycle hemoglobin every 6 hours x4 -Current hemoglobin is 15.7 which is slightly higher than her baseline due to dehydration -Hold home aspirin -Hold home naproxen -GI consult pending Dehydration -Renal function is slightly above baseline -Patient was given 1 L IV fluids emergency department -We will run fluids continuously -Continue to monitor -Repeat BMP in a.m. Abnormal UA -UA is suggestive of infection as she has occult blood, nitrites, leuk esterase, white cells, and 1+ bacteria -Zosyn -Blood and urine cultures are pending Generalized weakness/debility -Most likely related to acute illness -PT/OT consultation -Monitor clinically for needs at discharge -Patient currently resides in assisted living at [facility] Leukocytosis -Likely related to the above -Antibiotics as noted -Cultures pending -Continue to monitor Hypertension -Continue home propranolol -Continue home lisinopril -As needed hydralazine for systolic pressure greater than 160 GERD -Hold p.o. PPI -Protonix IV push twice daily History of bowel obstruction -Hold home loperamide -Hold home MiraLAX Osteoarthritis -As needed Tylenol for pain -Hold NSAIDs DVT prophylaxis -SCDs -Chemoprophylaxis contraindicated due to GI bleeding CODE STATUS DNR CCA with no intubation as verified in the emergency department prior to admission (8) Abnormal urinalysis: Charges/Coding Visit Charges Inpatient E&M: 88623 Init Hosp L3
[2023-07-30 14:58] LABS: Mucous, Urine 0 SEEN /hpf (<or=2+)
[2023-07-30 15:09] LABS: Color, Urine Yellow (Yellow); Glucose, Dipstick Normal (Normal); Ketone-Dipstick 5 mg/dl (Negative); Leukocyte Esterase-Dipstick 500 /ul (Negative); Nitrite-Dipstick Positive (Negative); Occult Blood-Urine 250 /ul (Negative); Protein-Dipstick 30 mg/dl (Negative); Urine Bilirubin Dipstick Negative (Negative); Urine Clarity Clear (Clear); Urine Urobilinogen Normal (Normal)
[2023-07-30] MEDS: Piperacil/Tazobactam 3.375 GM in 0.9% Normal Saline (50mL MB+) 50 ML IV ×2 (15:17→21:26)
[2023-07-30 15:24] LABS: Bacteria 1+ /hpf (None Seen); Red Blood Cells-Urine 25-50 SEEN /hpf (0-5); Squamous Epithelial Cells - UA 0-5 SEEN /hpf (5-10); White Blood Cells 25-50 SEEN /hpf (0-5)
[2023-07-30] MEDS: 0.9% Normal Saline (1000mL) 1,000 ML 75 ML IV (16:48)
[2023-07-30] MEDS: Pantoprazole Sodium 40 MG in 0.9% Normal Saline (100mL MB+) 100 ML 330 MG IV (17:25)
[2023-07-30] MEDS: Acetaminophen 325 MG Tablet 650 MG PO (17:25)
[2023-07-30] MEDS: Citalopram 10 MG Tablet PO (21:26)
[2023-07-31] VITALS (7 sets, daily range): BP systolic 142–171; BP diastolic 45–91; PULSE 63–91; RESP 16–20; TEMP 36.6–37; O2SAT 94–99; BMI 40.0
[2023-07-31 04:07] LABS: Bedside Glucose 122 mg/dL (74-106)
[2023-07-31] MEDS: Piperacil/Tazobactam 3.375 GM in 0.9% Normal Saline (50mL MB+) 50 ML IV ×3 (06:00→22:09)
[2023-07-31] MEDS: 0.9% Normal Saline (1000mL) 1,000 ML 75 ML IV ×2 (06:00→16:27)
[2023-07-31] MEDS: Acetaminophen 325 MG Tablet 650 MG PO ×2 (06:17→13:40)
[2023-07-31 06:33] LABS: Absolute Lymphocyte Count 1.77 X10^3/uL (0.83-4.51); Basophil# 0.08 X10^3/uL; Basophil% 0.4 % (0-1); Eosinophil# 0.09 X10^3/uL; Eosinophils% 0.5 % (0-5); Hematocrit 40.8 % (37-47); Hemoglobin 13.1 g/dL (12.0-15.0); Lymphocyte # 1.77 X10^3/ul (0.83-4.51); Lymphocyte % 9.9 % (19-41); Mean Corp Hgb Conc 32.1 g/dL (32-36); Mean Corpuscular Hgb 31.3 pg (27.0-32.0); Mean Corpuscular Volume 97.4 fL (81-99); Monocyte# 1.77 X10^3/uL; Monocyte% 9.9 % (0-10); NRBC Flagged by Analyzer 0 % (0-5); Neutrophil # 14.02 X10^3/uL (2.7-7.7); Neutrophil % 78.9 % (47-70); POSITIVE DIFFERENTIAL YES; Platelet Count 233 K/mm3 (150-450); RBC Distribution Width CV 13.8 % (11.6-14.6); RBC Distribution Width SD 48.8 fl (35.1-43.9); Red Blood Count 4.19 M/mm3 (4.2-5.4); White Blood Count 17.8 K/mm3 (4.4-11.0)
[2023-07-31 06:41] LABS: Differential Indicated SCAN CRITERIA MET
[2023-07-31 06:53] LABS: Differential Comment SCANNED
[2023-07-31 07:05] LABS: ALB/GLOB Ratio 0.6 RATIO (0.9-2.4); AST(SGOT) 16 U/L (15-37); Alanine Aminotransfer ALT/SGPT 14 U/L (13-56); Albumin, Serum 2.5 g/dL (3.2-5.0); Alkaline Phosphatase 64 U/L (45-117); Anion Gap 5 (5-15); BUN 22 mg/dL (7-18); BUN/Creat Ratio 26.2 RATIO (10-20); Calcium,Total 8.2 mg/dL (8.5-10.1); Chloride 109 mmol/L (98-107); Creatinine, Serum 0.84 mg/dL (0.55-1.02); EST Glomerular Filtration Rate 69 mL/min (>60); Est Glom Filt Rate - Afr Amer 83 mL/min (>60); Estimated Creatinine Clearance 38.96 ml/min; Glucose 114 mg/dL (74-106); Magnesium 1.8 mg/dL (1.6-2.6); Phosphorus 2.4 mg/dL (2.5-4.9); Potassium 3.4 mmol/L (3.5-5.1); Protein, Total 6.5 g/dL (6.4-8.2); Sodium Level 140 mmol/L (136-145)
--- NOTE | 2023-07-31 07:44 | PN.HOSP_ITS ---
Reason for Visit Reason for Visit: Diagnoses Elevated white blood cell count, unspecified (07/30/23) Dehydration (07/30/23) Ulcerative (chronic) pancolitis without complications (07/30/23) Hematemesis (07/30/23) Gastrointestinal hemorrhage, unspecified (07/30/23) Weakness (07/30/23) Other malaise (07/30/23) Unspecified abnormal findings in urine (07/30/23) Subjective Subjective Still with abdominal pain. Denies any further hematemesis. Objective Data Objective Data Vital Signs: Vital Signs Temp Pulse Resp BP Pulse Ox O2 Del Method 36.6 C 66 18 157/91 H 95 Room Air 07/31/23 02:44 07/31/23 02:44 07/31/23 02:44 07/31/23 02:44 07/31/23 02:44 07/31/23 02:44 Oxygen Delivery Method Room Air Weight: 96.162 kg Body Mass Index (BMI) 40.0 Intake & Output: Intake and Output for Last 24 Hours 07/29/23 07/30/23 07/31/23 23:59 23:59 23:59 Intake Total 1160 / 1160 1040 / 1040 Balance 1160 / 1160 1040 / 1040 Lab / Micro Data 07/31/23 06:25 07/31/23 06:25 Labs: Laboratory Results - last 24 hr 07/30/23 12:20: WBC 19.3 H, RBC 5.08, Hgb 15.7 H, Hct 48.5 H, MCV 95.5, MCH 30.9, MCHC 32.4, RDW Std Deviation 47.4 H, RDW Coeff of Lee 13.2, Plt Count 276, MPV 10.1, Immature Gran % (Auto) 0.500, Neut % (Auto) 83.9 H, Lymph % (Auto) 7.5 L, [place] % (Auto) 7.2, Eos % (Auto) 0.5, Baso % (Auto) 0.4, Absolute Neuts (auto) 16.2 H, Absolute Lymphs (auto) 1.44, Nucleated RBC % 0, PT 14.4, INR 1.1, APTT 31.2, Sodium 140, Potassium 4.1, Chloride 105, Carbon Dioxide 29.0, Anion Gap 6, BUN 25 H, Creatinine 1.16 H, Estim Creat Clear Calc 28.22, Est GFR (MDRD) Af Shalini r 57 L, Est GFR (MDRD) Non-Af 47 L, BUN/Creatinine Ratio 21.6 H, Glucose 138 H, Calcium 9.2, Total Bilirubin 0.80, Direct Bilirubin 0.30, AST 15, ALT 20, Alkaline Phosphatase 86, Troponin I High Sens 8, B-Natriuretic Peptide 166.7 H, Total Protein 7.9, Albumin 3.2, Globulin 4.7 H, Lipase 14, Blood Type O POSITIVE, Antibody Screen NEGATIVE 07/30/23 14:50: Urine Color Yellow, Urine Clarity Clear, Urine pH 5.0, Ur Specific Van 1.010, Urine Protein 30 H, Urine Glucose (UA) Normal, Urine Ketones 5 H, Urine Occult Blood 250 H, Urine Nitrite Positive H, Urine Bilirubin Negative, Urine Urobilinogen Normal, Ur Leukocyte Esterase 500 H, Urine RBC 25- 50 SEEN, Urine WBC 25-50 SEEN, Ur Squamous Epith Cells 0-5 SEEN, Urine Bacteria 1+, Urine Mucus 0 SEEN 07/30/23 15:42: POC Glucose 122 H 07/31/23 06:25: WBC 17.8 H, RBC 4.19 L, Hgb 13.1, Hct 40.8, MCV 97.4, MCH 31.3, MCHC 32.1, RDW Std Deviation 48.8 H, RDW Coeff of Lee 13.8, Plt Count 233, MPV 10.0, Immature Gran % (Auto) 0.400, Neut % (Auto) 78.9 H, Lymph % (Auto) 9.9 L, [place] % (Auto) 9.9, Eos % (Auto) 0.5, Baso % (Auto) 0.4, Absolute Neuts (auto) 14.0 H, Absolute Lymphs (auto) 1.77, Nucleated RBC % 0, Differential Comment SCANNED, Diff Path Review February, Sodium 140, Potassium 3.4 L, Chloride 109 H, Carbon Dioxide 26.0, Anion Gap 5, BUN 22 H, Creatinine 0.84, Estim Creat Clear Calc 38.96, Est GFR (MDRD) Af Amer 83, Est GFR (MDRD) Non-Af 69, BUN/Creatinine Ratio 26.2 H, Glucose 114 H, Calcium 8.2 L, Phosphorus 2.4 L, Magnesium 1.8, Total Bilirubin 1.00, AST 16, ALT 14, Alkaline Phosphatase 64, Total Protein 6.5, Albumin 2.5 L, Globulin 4.0, Albumin/Globulin Ratio 0.6 L Micro: Microbiology 07/30/23 12:22 Nasal Secretion SARS-CoV-2 & FLU Antigen (Rapid) - Final 07/30/23 12:11 Stool Stool Occult Blood (SHEILA) - Final Occult Blood Positive Radiography Diagnostic Testing: Radiology Impression Abdomen/Pelvis CT 07/30/23 12:03 IMPRESSION: Lange colitis. Fatty infiltration of the liver. Electronically Signed: Timothy Cain MD at 13:45 EDT , Chest X-Ray 07/30/23 12:35 IMPRESSION: Mild degree of vascular congestion. Electronically Signed: Timothy Cain MD at 13:20 EDT , Physical Exam Const alert and no apparent distress Resp normal respiratory effort, no retractions, no use of accessory muscles and clear to auscultation bilaterally Cardio regular rate, regular rhythm, S1 normal heart sound and S2 normal heart sound GI normal to inspection, nondistended, normoactive bowel sounds, soft to palpation, non-tender and non-distended Extremity normal to inspection and full ROM Assessment & Plan Assessment/Plan (1) Pancolitis: PLAN: Etiology is unclear however likely infectious versus ischemic versus infl ammatory C. difficile, enteric panel, stool for lactoferrin, BCx pending Clear liquid diet only for now IV fluids as ordered Piperacillin/tazobactamn GI consult (2) GI bleeding: PLAN: Patient reports emesis with blood as well as positive guaiac Certainly due to pancolitis, but unclear if upper source as well. Pantoprazole 40 mg IV push twice daily Hg dropped from 15.7 to 13.1. Monitor Hold aspirin and naproxen GI consult (3) Leukocytosis: PLAN: Reactive from colitis. Monitor (4) Debility: PLAN: PT OT (5) Generalized weakness: PLAN: Most likely related to acute illness PT/OT consultation Monitor clinically for needs at discharge Patient currently resides in assisted living at [facility] PLAN: Plan Chronic conditions: * Hypertension-Continue home propranolol-Continue home lisinopril-As needed hydralazine for systolic pressure greater than 160 * GERD-Hold p.o. PPI-Protonix IV push twice daily * History of bowel obstruction-Hold home loperamide-Hold home MiraLAX * Osteoarthritis-As needed Tylenol for pain-Hold NSAIDs DVT [id number] contraindicated due to GI bleeding CODE STATUS: DNR CCA with no intubation Charges/Coding Visit Charges Inpatient E&M: 86778 Subs Hosp L2
[2023-07-31] MEDS: Lisinopril 10 MG Tablet PO (10:19)
[2023-07-31] MEDS: Pantoprazole Sodium 40 MG in 0.9% Normal Saline (100mL MB+) 100 ML 330 MG IV ×2 (10:19→21:24)
[2023-07-31 13:35] LABS: Pathologist Review Reviewed
--- NOTE | 2023-07-31 14:31 | CON.PCM.GI_ITS ---
HPI Consult Data Date of Consult: 07/31/23 HPI Narrative Reason for Consultation: Lower GI bleeding HPI Narrative: FLORIAN CHAPMAN, is a 82 F who presents with lower GI bleeding to the ED. She complained of of generalized weakness and blood that was found in her stool last evening and this morning. Patient states she was feeling well yesterday and got her flu shot. Last evening she developed some generalized weakness felt warm and had some chills. She was also noting some blood in her stool. She also had a bout of emesis last evening and reported that there was blood in it she thinks. She woke up today feeling weaker than yesterday had nausea and vomiting again with what she thought to be blood in her vomit and blood in her stool. Patient indicates overall she has been very fatigued and generally feeling unwell. She states she had a headache, ongoing nausea and vomiting, diarrhea, mild diffuse abdominal pain, Generalized weakness, and significant fatigue. She has not been on antibiotics recently and again stated she was feeling well up until yesterday. Vitals: temperature of 99, heart rate 100, blood pressure is 148/105, respiratory rate 20 and oxygen saturations are 93% on room air. CBC shows a significant leukocytosis with a white count of 19.3, her hemoglobin is 15.7 above her baseline of 13-14 and her platelet count is 276,000. She does have a left shift with an 83.9% neutrophilia. Coags are normal. Her chemistry panel shows normal electrolytes however her BUN is slightly elevated from her ba seline at 25 and her serum creatinine is above her baseline as well at 1.616. (Baseline creatinine 0.7-0.9). Her glucose was mildly elevated at 138. Her LFTs were unremarkable. Troponin was normal at 8. Lipase was 14. Her urine shows ketones and nitrites as well as leuk esterase white cells and 1+ bacteria. EKG shows normal sinus rhythm, with normal intervals. No ST-T wave changes concerning for acute ischemia. COVID testing was unremarkable. Stool occult was positive for blood. Chest x-ray shows some mild vascular congestion and CT of the abdomen pelvis shows bibasilar scarring with coronary artery calcification, hepatosteatosis, pancolitis that is worse in the left hemicolon and scattered sigmoid diverticuli. She was given IV fluids and started on Zosyn in the emergency department request for admission was made. [facility] Medical History Arthritis Bowel obstruction History of shingles Hypertension Home Medications aspirin 81 mg chewable tablet 81 mg PO DAILY heart health 10/26/13 [History Last Taken 07/30/23] citalopram 10 mg tablet 10 mg PO QHS depression 01/18/14 [History Last Taken 07/29/23] acetaminophen 500 mg tablet 1,000 mg PO 4X/DAY PRN Pain 02/24/17 [History Last Taken Unknown] naproxen sodium 220 mg tablet 220 mg PO BID inflammation 03/23/19 [History Last Taken 07/30/23] lisinopril 10 mg tablet 10 mg PO DAILY blood pressure 05/12/19 [History Last Taken 07/30/23] loperamide 2 mg capsule 2 mg PO UD PRN loose stool 07/30/23 [History Last Taken Unknown] multivitamin 1 tab PO DAILY health maintenance 07/30/23 [History Last Taken 07/30/23] omeprazole 40 mg capsule,delayed release 40 mg PO DAILY acid reflux 07/30/23 [History Last Taken 07/30/23] polyethylene glycol 3350 17 gram/dose oral powder (ClearLax) 17 g PO DAILY constipation 07/30/23 [History Last Taken Unknown] propranolol 80 mg tablet 40 mg PO QHS TREMORS 07/30/23 [History Last Taken 07/30/23] Allergy/AdvReac Type Severity Reaction Status Date / Time Sulfa (Sulfonamide Allergy Unknown Unknown Verified 07/30/23 16:46 Antibiotics) adhesive Allergy Rash Verified 07/30/23 16:46 Family History Father Hypertension Heart disease Surgical History Hx of tonsillectomy S/P FRANCIE-O Social History (Updated 07/30/23 @ 15:[address] Dianna Lamar DO) housing: assisted living facility Smoking Status: Former smoker alcohol intake: current alcohol intake frequency: holidays/special occasions only substance use type: does not use seatbelt use: always do you feel safe at home: Yes additional social history: Mehrdad 1993 ROS Constitutional Constitutional: Reports chills, fatigue, fever(s), malaise and weakness; Denies anorexia, change in weight, night sweats or other Eyes Eyes: Denies blurry vision, change in eye color, change in vision, discharge from eye(s), double vision, erythema, eye pain, loss of vision or other ENT HEENT: Reports headache(s); Denies abnormal hearing, dysphagia, ear pain, epistaxis, hearing loss, nasal congestion, nasal discharge, post nasal drip, sinus pressure, sore throat or other Cardiovascular Cardiovascular: Denies chest pain, claudication, dyspnea on exertion, edema, lightheadedness, orthopnea, palpitations, paroxysmal nocturnal dyspnea, rapid heart rate, syncope or other Respiratory/Chest Respiratory/Chest: Denies cough, dyspnea, excessive phlegm production, hemoptysis, productive cough, shortness of breath at rest, shortness of breath with exertion, wheezing or other Gastrointestinal Gastrointestinal: Reports abdominal pain, coffee ground emesis, diarrhea, hematochezia, nausea and vomiting Genitourinary Genitourinary: Reports urinary frequency and urinary incontinence; Denies burning urination, difficulty urinating, dysuria, hematuria, nocturia, urinary hesitancy, urinary urgency or other Musculoskeletal Musculoskeletal: Reports myalgias; Denies arthralgias, back pain, joint pain, joint stiffness, joint swelling, neck pain or other Neurologic Neurologic: Denies abnormal gait, abnormal speech, confusion, disequilibrium, dizziness, focal weakness, headache(s), numbness, paresthesias, seizure-like activity, seizures, syncope, tingling, tremor(s) or other Psychiatric Psychiatric: Denies anxiety, depression, homicidal ideation, suicidal ideation or other Endocrine Endocrinology: Denies change in body appearance, cold intolerance, excessive sweating, heat intolerance, polydipsia, polyuria or other Hematologic/Lymphatic Hematologic/Lymphatic: Denies anemia, easy bleeding, easy bruising, lymphadenopathy or other Allergic/Immunologic Allergic/Immunologic: Denies rhinitis, hives, eczemia, asthma or other Physical Exam Const alert and no apparent distress Resp normal respiratory effort, no retractions, no use of accessory muscles and clear to auscultation bilaterally Cardio regular rate, regular rhythm, S1 normal heart sound and S2 normal heart sound GI normal to inspection, nondistended, normoactive bowel sounds, soft to palpation, non-tender and non-distended Extremity normal to inspection and full ROM Lab / Micro Data 07/31/23 06:25 07/31/23 06:25 Labs: Laboratory Results - last 24 hr 07/30/23 14:50: Urine Color Yellow, Urine Clarity Clear, Urine pH 5.0, Ur Speci fic [place] 1.010, Urine Protein 30 H, Urine Glucose (UA) Normal, Urine Ketones 5 H, Urine Occult Blood 250 H, Urine Nitrite Positive H, Urine Bilirubin Negative, Urine Urobilinogen Normal, Ur Leukocyte Esterase 500 H, Urine RBC 25- 50 SEEN, Urine WBC 25-50 SEEN, Ur Squamous Epith Cells 0-5 SEEN, Urine Bacteria 1+, Urine Mucus 0 SEEN 07/30/23 15:42: POC Glucose 122 H 07/31/23 06:25: WBC 17.8 H, RBC 4.19 L, Hgb 13.1, Hct 40.8, MCV 97.4, MCH 31.3, MCHC 32.1, RDW Std Deviation 48.8 H, RDW Coeff of Lee 13.8, Plt Count 233, MPV 10.0, Immature Gran % (Auto) 0.400, Neut % (Auto) 78.9 H, Lymph % (Auto) 9.9 L, [place] % (Auto) 9.9, Eos % (Auto) 0.5, Baso % (Auto) 0.4, Absolute Neuts (auto) 14.0 H, Absolute Lymphs (auto) 1.77, Nucleated RBC % 0, Differential Comment SCANNED, Diff Path Review Reviewed, Sodium 140, Potassium 3.4 L, Chloride 109 H, Carbon Dioxide 26.0, Anion Gap 5, BUN 22 H, Creatinine 0.84, Estim Creat Clear Calc 38.96, Est GFR (MDRD) Af Amer 83, Est GFR (MDRD) Non-Af 69, BUN/Creatinine Ratio 26.2 H, Glucose 114 H, Calcium 8.2 L, Phosphorus 2.4 L, Magnesium 1.8, Total Bilirubin 1.00, AST 16, ALT 14, Alkaline Phosphatase 64, Total Protein 6.5, Albumin 2.5 L, Globulin 4.0, Albumin/Globulin Ratio 0.6 L Micro: Microbiology 07/30/23 14:50 Urine, Clean Catch Urine Culture - Preliminary GNR lactose 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 difficile DNA Amplification - Final 07/30/23 23:57 Stool Stool Lactoferrin - Final 07/30/23 12:22 Nasal Secretion SARS-CoV-2 & FLU Antigen (Rapid) - Final 07/30/23 12:11 Stool Stool Occult Blood (SHEILA) - Final Occult Blood Positive Assessment & Plan Assessment/Plan (1) GI bleeding: QUALIFIERS: GI bleed type/associated pathology: unspecified gastrointestinal hemorrhage type Qualified Code(s): K92.2 - Gastrointestinal hemorrhage, unspecified PLAN: 82 old with past medical CKD, mild depression, GERD, benign essential murmur on propanolol and aspirin who presents with acute onset nausea, vomiting and multiple episodes of diarrhea after undergoing vaccination. Differential diagnosis is more inflammatory than infectious in etiology. CT scan shows pancolitis which is greater on the left than right which is likely secondary to ischemic colitis. I am okay with her having antibiotics at this time. I will check an ESR, CRP, lactate and continue IV fluids. Her C. difficile is negative. We will await stool culture to see if there is an acute infectious or viral bacterial agent. There have been instances. Charges/Coding Visit Charges Inpatient E&M: 57005 Init Hosp L3
--- NOTE | 2023-07-31 15:10 | CASEMGMT ---
Social Work SW is admitted from [facility] where she lives in the independent living. Pt states that she has been independent with all ADLs and medication management. Ambulates with a walker and has a car and transport herself. Facility cleans pt room and provides lunch and dinner. Pt provides own breakfast. Pt plans to return to [facility] at time of dischrage and states her dgt Baraga can tranport. Therapy is ordered for pt. SW will watch for d/c needs. Phone call received from Sandra at [facility] and update provided. Pt can return when medically ready. Plan: [facility], when medically ready ALESSANDRA Macario
--- NOTE | 2023-07-31 15:32 | CASEMGMT ---
Discharge Planning Updates faxed to [facility]. Aure Felton, Discharge Planning Asst.
[2023-07-31] MEDS: Citalopram 10 MG Tablet PO (20:38)
[2023-07-31] MEDS: Propranolol 40 MG Tablet PO (21:25)
[2023-08-01 02:37] VITALS: BP 158/79; PULSE 78; RESP 16; TEMP 36.8; O2SAT 94
[2023-08-01] MEDS: Acetaminophen 325 MG Tablet 650 MG PO ×3 (02:40→17:52)
[2023-08-01] MEDS: Piperacil/Tazobactam 3.375 GM in 0.9% Normal Saline (50mL MB+) 50 ML IV ×3 (05:29→22:00)
[2023-08-01] MEDS: 0.9% Normal Saline (1000mL) 1,000 ML 75 ML IV ×2 (05:29→17:52)
[2023-08-01 05:30] VITALS: BMI 39.8
[2023-08-01 07:25] VITALS: O2SAT 94
--- NOTE | 2023-08-01 08:06 | PN.HOSP_ITS ---
Reason for Visit Reason for Visit: Diagnoses Elevated white blood cell count, unspecified (07/30/23) Dehydration (07/30/23) Ulcerative (chronic) pancolitis without complications (07/30/23) Hematemesis (07/30/23) Gastrointestinal hemorrhage, unspecified (07/30/23) Weakness (07/30/23) Other malaise (07/30/23) Unspecified abnormal findings in urine (07/30/23) Subjective Subjective Feeling better. No further bleeding. Objective Data Objective Data Vital Signs: Vital Signs Temp Pulse Resp BP Pulse Ox O2 Del Method 36.8 C 78 16 158/79 H 94 Room Air 08/01/23 02:37 08/01/23 02:37 08/01/23 02:37 08/01/23 02:37 08/01/23 07:25 08/01/23 07:25 Oxygen Delivery Method Room Air Weight: 95.6 kg Body Mass Index (BMI) 39.8 Intake & Output: Intake and Output for Last 24 Hours 07/30/23 07/31/23 08/01/23 23:59 23:59 23:59 Intake Total 1160 / 1160 2520.00 / 2520.00 631.25 / 631.25 Balance 1160 / 1160 2520.00 / 2520.00 631.25 / 631.25 Lab / Micro Data 08/01/23 08:00 08/01/23 08:00 Labs: Laboratory Results - last 24 hr 07/31/23 06:25: Diff Path Review Reviewed Micro: Microbiology 07/30/23 14:50 Urine, Clean Catch Urine Culture - Preliminary GNR 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 difficile DNA Amplification - Final 07/30/23 23:57 Stool Stool Lactoferrin - Final 07/30/23 12:22 Nasal Secretion SARS-CoV-2 & FLU Antigen (Rapid) - Final 07/30/23 12:11 Stool Stool Occult Blood (SHEILA) - Final Occult Blood Positive Physical Exam Const alert and no apparent distress HEENT head/scalp atraumatic Resp normal respiratory effort, no retractions, no use of accessory muscles and clear to auscultation bilaterally Cardio regular rate, regular rhythm, S1 normal heart sound and S2 normal heart sound GI normal to inspection, nondistended, normoactive bowel sounds, soft to palpation, non-tender and non-distended Extremity normal to inspection Assessment & Plan Assessment/Plan (1) Pancolitis: PLAN: Etiology is unclear however likely infectious versus ischemic versus inflammatory C. difficile negative Follow up enteric panel, stool for lactoferrin, BCx pending Clear liquid diet only for now IV fluids as ordered Piperacillin/tazobactamn GI consult (2) GI bleeding: QUALIFIERS: GI bleed type/associated pathology: unspecified gastrointestinal hemorrhage type Qualified Code(s): K92.2 - Gastrointestinal hemorrhage, unspecified PLAN: Resolved Patient reports emesis with blood as well as positive guaiac Certainly due to pancolitis, but unclear if upper source as well. Pantoprazole 40 mg IV push twice daily Hg dropped from 15.7 to 13.1. Monitor Hold aspirin and naproxen GI consult (3) Leukocytosis: PLAN: Reactive from colitis. Monitor (4) Debility: PLAN: PT OT (5) Generalized weakness: PLAN: Most likely related to acute illness PT/OT consultation Monitor clinically for needs at discharge Patient currently resides in assisted living at [facility] (6) Bacteriuria: PLAN: 2 GNR 50-80k Unclear if true infection v colonization Already on abx w pip/tazo Follow up final UCx. PLAN: Plan Chronic conditions: * Hypertension-Continue home propranolol-Continue home lisinopril-As needed hydralazine for systolic pressure greater than 160 * GERD-Hold p.o. PPI-Protonix IV push twice daily * History of bowel obstruction-Hold home loperamide-Hold home MiraLAX * Osteoarthritis-As needed Tylenol for pain-Hold NSAIDs DVT [id number] contraindicated due to GI bleeding CODE STATUS: DNR CCA with no intubation DW pt's dtr at bedside. Charges/Coding Visit Charges Inpatient E&M: 91631 Subs Hosp L2
[2023-08-01] MEDS: Lisinopril 10 MG Tablet PO (08:22)
[2023-08-01 08:39] LABS: Absolute Lymphocyte Count 2.01 X10^3/uL (0.83-4.51); Absolute Neutrophil Count 14.5 X10^3/uL (2.0-7.7); Basophil# 0.07 X10^3/uL; Basophil% 0.4 % (0-1); Eosinophil# 0.01 X10^3/uL; Eosinophils% 0.1 % (0-5); Hematocrit 39.9 % (37-47); Hemoglobin 12.9 g/dL (12.0-15.0); Lymphocyte # 2.01 X10^3/ul (0.83-4.51); Lymphocyte % 11.1 % (19-41); Mean Corp Hgb Conc 32.3 g/dL (32-36); Mean Corpuscular Hgb 31.5 pg (27.0-32.0); Mean Corpuscular Volume 97.6 fL (81-99); Mean Platelet Vol. 10.9 fl (6.2-12.0); Monocyte# 1.43 X10^3/uL; Monocyte% 7.9 % (0-10); NRBC Flagged by Analyzer 0 % (0-5); Neutrophil # 14.51 X10^3/uL (2.7-7.7); Neutrophil % 79.9 % (47-70); Platelet Count 235 K/mm3 (150-450); RBC Distribution Width CV 13.8 % (11.6-14.6); RBC Distribution Width SD 49.4 fl (35.1-43.9); Red Blood Count 4.09 M/mm3 (4.2-5.4); White Blood Count 18.1 K/mm3 (4.4-11.0)
[2023-08-01 09:00] VITALS: BP 158/66; PULSE 74; RESP 16; TEMP 36.4; O2SAT 93
[2023-08-01 09:04] LABS: Anion Gap 6 (5-15); BUN 16 mg/dL (7-18); BUN/Creat Ratio 21.7 RATIO (10-20); Calcium,Total 8.4 mg/dL (8.5-10.1); Chloride 110 mmol/L (98-107); Creatinine, Serum 0.74 mg/dL (0.55-1.02); EST Glomerular Filtration Rate 80 mL/min (>60); Est Glom Filt Rate - Afr Amer 97 mL/min (>60); Estimated Creatinine Clearance 32.73 ml/min; Glucose 92 mg/dL (74-106); Potassium 3.6 mmol/L (3.5-5.1); Sodium Level 140 mmol/L (136-145)
[2023-08-01] MEDS: Pantoprazole Sodium 40 MG in 0.9% Normal Saline (100mL MB+) 100 ML 330 MG IV ×2 (11:17→21:25)
--- NOTE | 2023-08-01 13:47 | CASEMGMT ---
Social Work SW reviewed therapy notes, they are recommending home health. SW met w/pt, spoke w/her about home health, she is agreeable to a referral for home health for therapy. SW gave pt a list of home health agencies via [employer] in pt's preferred geographic area, insurance network, and complete with quality and resource use data. Pt does not have a preference for agency. SW let CM know of the referral for HHC. JOHN Dorantes
--- NOTE | 2023-08-01 14:32 | CASEMGMT ---
JOSE ELIAS JOHNSON updated by ADAN that patient would like [facility] for therapy at [place] and agreeable to [facility]. JOSE ELIAS JOHNSON called and left message with referral.
[2023-08-01 15:00] VITALS: BP 175/82; PULSE 71; RESP 16; TEMP 36.4; O2SAT 96
[2023-08-01 19:53] VITALS: BP 155/78; PULSE 75; RESP 18; TEMP 36.4; O2SAT 94
[2023-08-01] MEDS: Menthol/Lanolin/Calamine/Znox 113 GM Tube 1 APPLIC TOPICAL (20:03)
[2023-08-01] MEDS: Propranolol 40 MG Tablet PO (20:04)
[2023-08-01] MEDS: Citalopram 10 MG Tablet PO (20:06)
[2023-08-02] MEDS: Acetaminophen 325 MG Tablet 650 MG PO ×3 (00:34→17:56)
[2023-08-02 03:00] VITALS: BP 157/77; PULSE 70; RESP 16; TEMP 36.8; O2SAT 96
[2023-08-02] MEDS: 0.9% Normal Saline (1000mL) 1,000 ML 75 ML IV ×2 (05:34→17:52)
[2023-08-02] MEDS: Piperacil/Tazobactam 3.375 GM in 0.9% Normal Saline (50mL MB+) 50 ML IV ×3 (05:35→22:58)
[2023-08-02 05:56] VITALS: BMI 40.7
[2023-08-02 06:56] LABS: Absolute Lymphocyte Count 2.43 X10^3/uL (0.83-4.51); Absolute Neutrophil Count 11.8 X10^3/uL (2.0-7.7); Basophil# 0.12 X10^3/uL; Basophil% 0.8 % (0-1); Eosinophil# 0.17 X10^3/uL; Eosinophils% 1.1 % (0-5); Hematocrit 38.7 % (37-47); Hemoglobin 12.2 g/dL (12.0-15.0); Lymphocyte # 2.43 X10^3/ul (0.83-4.51); Lymphocyte % 15.3 % (19-41); Mean Corp Hgb Conc 31.5 g/dL (32-36); Mean Corpuscular Volume 98.5 fL (81-99); Mean Platelet Vol. 11.2 fl (6.2-12.0); Monocyte# 1.32 X10^3/uL; Monocyte% 8.3 % (0-10); NRBC Flagged by Analyzer 0 % (0-5); Neutrophil # 11.75 X10^3/uL (2.7-7.7); Neutrophil % 74.1 % (47-70); Platelet Count 221 K/mm3 (150-450); RBC Distribution Width CV 13.5 % (11.6-14.6); RBC Distribution Width SD 49.9 fl (35.1-43.9); Red Blood Count 3.93 M/mm3 (4.2-5.4); White Blood Count 15.9 K/mm3 (4.4-11.0)
[2023-08-02 07:21] LABS: Anion Gap 6 (5-15); BUN 12 mg/dL (7-18); BUN/Creat Ratio 22.4 RATIO (10-20); Chloride 110 mmol/L (98-107); Creatinine, Serum 0.54 mg/dL (0.55-1.02); EST Glomerular Filtration Rate 116 mL/min (>60); Est Glom Filt Rate - Afr Amer 140 mL/min (>60); Estimated Creatinine Clearance 32.73 ml/min; Glucose 84 mg/dL (74-106); Potassium 3.3 mmol/L (3.5-5.1); Sodium Level 138 mmol/L (136-145)
--- NOTE | 2023-08-02 07:57 | PN.HOSP_ITS ---
Reason for Visit Reason for Visit: Diagnoses Elevated white blood cell count, unspecified (07/30/23) Dehydration (07/30/23) Ulcerative (chronic) pancolitis without complications (07/30/23) Hematemesis (07/30/23) Gastrointestinal hemorrhage, unspecified (07/30/23) Weakness (07/30/23) Other malaise (07/30/23) Bacteriuria (07/30/23) Unspecified abnormal findings in urine (07/30/23) Subjective Subjective still had some bleeding. Objective Data Objective Data Vital Signs: Vital Signs Temp Pulse Resp BP Pulse Ox O2 Del Method 36.8 C 70 16 157/77 H 96 Room Air 08/02/23 03:00 08/02/23 03:00 08/02/23 03:00 08/02/23 03:00 08/02/23 03:00 08/02/23 04:00 Oxygen Delivery Method Room Air Weight: 95.6 kg Body Mass Index (BMI) 39.8 Intake & Output: Intake and Output for Last 24 Hours 07/31/23 08/01/23 08/02/23 23:59 23:59 23:59 Intake Total 2520.00 / 2520.00 2480.00 / 2680.00 1227.5 / 1227.5 Balance 2520.00 / 2520.00 2480.00 / 2680.00 1227.5 / 1227.5 Lab / Micro Data 08/02/23 05:59 08/02/23 05:59 Labs: Laboratory Results - last 24 hr 08/01/23 08:00: WBC 18.1 H, RBC 4.09 L, Hgb 12.9, Hct 39.9, MCV 97.6, MCH 31.5, MCHC 32.3, RDW Std Deviation 49.4 H, RDW Coeff of Lee 13.8, Plt Count 235, MPV 10.9, Immature Gran % (Auto) 0.600, Neut % (Auto) 79.9 H, Lymph % (Auto) 11.1 L, [place] % (Auto) 7.9, Eos % (Auto) 0.1, Baso % (Auto) 0.4, Absolute Neuts (auto) 14.5 H, Absolute Lymphs (auto) 2.01, Nucleated RBC % 0, Sodium 140, Potassium 3 .6, Chloride 110 H, Carbon Dioxide 24.0, Anion Gap 6, BUN 16, Creatinine 0.74, Estim Creat Clear Calc 32.73, Est GFR (MDRD) Af Amer 97, Est GFR (MDRD) Non-Af 80, BUN/Creatinine Ratio 21.7 H, Glucose 92, Calcium 8.4 L 08/02/23 05:59: WBC 15.9 H, RBC 3.93 L, Hgb 12.2, Hct 38.7, MCV 98.5, MCH 31.0, MCHC 31.5 L, RDW Std Deviation 49.9 H, RDW Coeff of Lee 13.5, Plt Count 221, MPV 11.2, Immature Gran % (Auto) 0.400, Neut % (Auto) 74.1 H, Lymph % (Auto) 15.3 L, [place] % (Auto) 8.3, Eos % (Auto) 1.1, Baso % (Auto) 0.8, Absolute Neuts (auto) 11.8 H, Absolute Lymphs (auto) 2.43, Nucleated RBC % 0, Sodium 138, Potassium 3.3 L, Chloride 110 H, Carbon Dioxide 22.0, Anion Gap 6, BUN 12, Creatinine 0.54 L, Estim Creat Clear Calc 32.73, Est GFR (MDRD) Af Amer 140, Est GFR (MDRD) Non-Af 116, BUN/Creatinine Ratio 22.4 H, Glucose 84, Calcium 8.0 L Micro: Microbiology 07/30/23 15:08 Blood Culture (Wb) - Right Hand Blood Culture - Preliminary No growth in 48 hours. 07/30/23 14:35 Blood Culture (Wb) - Anticubital Right Blood Culture - Pre liminary No growth in 48 hours. 07/30/23 14:50 Urine, Clean Catch Urine Culture - Final Escherichia coli#2 Escherichia coli 07/30/23 23:57 Stool C. difficile DNA Amplification - Final 07/30/23 23:57 Stool Stool Lactoferrin - Final 07/30/23 12:22 Nasal Secretion SARS-CoV-2 & FLU Antigen (Rapid) - Final 07/30/23 12:11 Stool Stool Occult Blood (SHEILA) - Final Occult Blood Positive Physical Exam Const alert and no apparent distress HEENT head/scalp atraumatic and moist oral mucous membranes Resp normal respiratory effort, no retractions, no use of accessory muscles and clear to auscultation bilaterally Cardio regular rate, regular rhythm, S1 normal heart sound and S2 normal heart sound GI normal to inspection, nondistended, normoactive bowel sounds, soft to palpation, non-tender and non-distended Extremity normal to inspection Assessment & Plan Assessment/Plan (1) Pancolitis: PLAN: Etiology is unclear however likely infectious versus ischemic versus inflammatory C. difficile negative Follow up enteric panel, stool for lactoferrin, BCx pending Clear liquid diet only for now IV fluids as ordered Piperacillin/tazobactamn GI following (2) GI bleeding: QUALIFIERS: GI bleed type/associated pathology: unspecified gastrointestinal hemorrhage type Qualified Code(s): K92.2 - Gastrointestinal hemorrhage, unspecified PLAN: Improved. Patient reports emesis with blood as well as positive guaiac Certainly due to pancolitis, but unclear if upper source as well. Pantoprazole 40 mg IV push twice daily Hg dropped from 15.7 to 13.1. Monitor Hold aspirin and naproxen GI following, suspecting ischemic colitis. (3) Leukocytosis: PLAN: Improving Reactive from colitis. Monitor (4) Debility: PLAN: PT OT (5) Generalized weakness: PLAN: Most likely related to acute illness PT/OT consultation Monitor clinically for needs at discharge Patient currently resides in assisted living at [place] (6) Bacteriuria: PLAN: 2 GNR 50-80k Unclear if true infection v colonization Already on abx w pip/tazo Follow up final UCx. PLAN: Plan Chronic conditions: * Hypertension-Continue home propranolol-Continue home lisinopril-As needed hydralazine for systolic pressure greater than 160 * GERD-Hold p.o. PPI-Protonix IV push twice daily * History of bowel obstruction-Hold home loperamide-Hold home MiraLAX * Osteoarthritis-As needed Tylenol for pain-Hold NSAIDs DVT [id number]-Nbgmfogzaabzeosj contraindicated due to GI bleeding CODE STATUS: DNR CCA with no intubation Disposition: TBD. monitor at least another night medically. Tentative plan for home with [facility]. Charges/Coding Visit Charges Inpatient E&M: 13015 Subs Hosp L2
[2023-08-02 08:29] VITALS: BP 156/82; PULSE 72; RESP 16; TEMP 36.4; O2SAT 94
[2023-08-02 08:34] VITALS: O2SAT 94
[2023-08-02] MEDS: Pantoprazole Sodium 40 MG in 0.9% Normal Saline (100mL MB+) 100 ML 330 MG IV ×2 (10:05→21:54)
[2023-08-02] MEDS: Menthol/Lanolin/Calamine/Znox 113 GM Tube 1 APPLIC TOPICAL ×2 (10:05→20:51)
[2023-08-02] MEDS: Lisinopril 10 MG Tablet PO (10:05)
[2023-08-02 15:04] VITALS: BP 153/70; PULSE 70; RESP 16; TEMP 36.8; O2SAT 96
[2023-08-02 20:28] VITALS: BP 137/59; PULSE 82; RESP 18; TEMP 36.9; O2SAT 93
[2023-08-02] MEDS: Propranolol 40 MG Tablet PO (20:50)
[2023-08-02] MEDS: Citalopram 10 MG Tablet PO (20:50)
[2023-08-03 02:09] VITALS: BP 157/67; PULSE 70; RESP 20; TEMP 36.7; O2SAT 92
[2023-08-03] MEDS: Acetaminophen 325 MG Tablet 650 MG PO (02:10)
[2023-08-03] MEDS: 0.9% Normal Saline (250mL Bag) 250 ML 15 ML IV (05:57)
[2023-08-03] MEDS: Piperacil/Tazobactam 3.375 GM in 0.9% Normal Saline (50mL MB+) 50 ML IV ×2 (05:57→13:26)
[2023-08-03] MEDS: 0.9% Normal Saline (1000mL) 1,000 ML 75 ML IV (05:58)
[2023-08-03 06:00] VITALS: BMI 40.8
[2023-08-03 06:51] LABS: Absolute Neutrophil Count 6.3 X10^3/uL (2.0-7.7); Basophil# 0.09 X10^3/uL; Basophil% 0.9 % (0-1); Eosinophil# 0.28 X10^3/uL; Eosinophils% 2.7 % (0-5); Hematocrit 35.5 % (37-47); Hemoglobin 11.4 g/dL (12.0-15.0); Mean Corp Hgb Conc 32.1 g/dL (32-36); Mean Corpuscular Hgb 31.4 pg (27.0-32.0); Mean Corpuscular Volume 97.8 fL (81-99); Mean Platelet Vol. 10.5 fl (6.2-12.0); Monocyte% 12.5 % (0-10); NRBC Flagged by Analyzer 0 % (0-5); Neutrophil % 60.4 % (47-70); Platelet Count 240 K/mm3 (150-450); RBC Distribution Width CV 13.5 % (11.6-14.6); RBC Distribution Width SD 48.8 fl (35.1-43.9); Red Blood Count 3.63 M/mm3 (4.2-5.4); White Blood Count 10.4 K/mm3 (4.4-11.0)
[2023-08-03 07:17] LABS: Anion Gap 5 (5-15); BUN 10 mg/dL (7-18); Calcium,Total 7.7 mg/dL (8.5-10.1); Chloride 110 mmol/L (98-107); Creatinine, Serum 0.59 mg/dL (0.55-1.02); EST Glomerular Filtration Rate 104 mL/min (>60); Est Glom Filt Rate - Afr Amer 126 mL/min (>60); Estimated Creatinine Clearance 32.73 ml/min; Glucose 88 mg/dL (74-106); Potassium 2.9 mmol/L (3.5-5.1); Sodium Level 141 mmol/L (136-145)
--- NOTE | 2023-08-03 07:45 | PCM.PN.HOSP ---
Reason for Visit Reason for Visit: Diagnoses Elevated white blood cell count, unspecified (07/30/23) Dehydration (07/30/23) Ulcerative (chronic) pancolitis without complications (07/30/23) Hematemesis (07/30/23) Gastrointestinal hemorrhage, unspecified (07/30/23) Weakness (07/30/23) Other malaise (07/30/23) Bacteriuria (07/30/23) Unspecified abnormal findings in urine (07/30/23) Subjective Subjective Ate some food last night, not much this AM. Still with abdominal pain on left. Mucous stool. Objective Data Objective Data Vital Signs: Vital Signs Temp Pulse Resp BP Pulse Ox O2 Del Method 36.7 C 70 20 H 157/67 H 92 Room Air 08/03/23 02:09 08/03/23 02:09 08/03/23 02:09 08/03/23 02:09 08/03/23 02:09 08/03/23 02:15 Oxygen Delivery Method Room Air Weight: 98 kg Body Mass Index (BMI) 40.8 Intake & Output: Intake and Output for Last 24 Hours 08/01/23 08/02/23 08/03/23 23:59 23:59 23:59 Intake Total 2480.00 / 2680.00 2710.0 / 2710.0 1167.75 / 1167.75 Balance 2480.00 / 2680.00 2710.0 / 2710.0 1167.75 / 1167.75 Lab / Micro Data 08/03/23 05:50 08/03/23 05:50 Labs: Laboratory Results - last 24 hr 08/03/23 05:50: WBC 10.4, RBC 3.63 L, Hgb 11.4 L, Hct 35.5 L, MCV 97.8, MCH 31.4, MCHC 32.1, RDW Std Deviation 48.8 H, RDW Coeff of Lee 13.5, Plt Count 240, MPV 10.5, Immature Gran % (Auto) 0.500, Neut % (Auto) 60.4, Lymph % (Auto) 23.0, [place] % (Auto) 12.5 H, Eos % (Auto) 2.7, Baso % (Auto) 0.9, Absolute Neuts (auto) 6.3, Absolute Lymphs (auto) 2.40, Nucleated RBC % 0, Sodium 141, Potassium 2.9 L, Chloride 110 H, Carbon Dioxide 26.0, Anion Gap 5, BUN 10, Creatinine 0.59, Estim Creat Clear Calc 32.73, Est GFR (MDRD) Af Amer 126, Est GFR (MDRD) Non-Af 104, BUN/Creatinine Ratio 17.0, Glucose 88, Calcium 7.7 L Micro: Microbiology 07/30/23 15:08 Blood Culture (Wb) - Right Hand Blood Culture - Preliminary No growth in 48 hours. 07/30/23 14:35 Blood Culture (Wb) - Anticubital Right Blood Culture - Preliminary No growth in 48 hours. 07/30/23 14:50 Urine, Clean Catch Urine Culture - Final Escherichia coli#2 Escherichia coli 07/30/23 23:57 Stool C. difficile DNA Amplification - Final 07/30/23 23:57 Stool Stool Lactoferrin - Final 07/30/23 12:22 Nasal Secretion SARS-CoV-2 & FLU Antigen (Rapid) - Final 07/30/23 12:11 Stool Stool Occult Blood (SHEILA) - Final Occult Blood Positive Physical Exam Const alert and no apparent distress Resp normal respiratory effort, no retractions, no use of accessory muscles and clear to auscultation bilaterally Cardio regular rate, regular rhythm, S1 normal heart sound and S2 normal heart sound GI normal to inspection, nondistended, normoactive bowel sounds, soft to palpation, non-tender and non-distended Extremity normal to inspection Assessment & Plan Assessment/Plan (1) Pancolitis: PLAN: Etiology is unclear however likely infectious versus ischemic versus inflammatory C. difficile negative Follow up enteric panel, stool for lactoferrin, BCx pending Clear liquid diet only for now IV fluids as ordered Piperacillin/tazobactamn GI following (2) GI bleeding: QUALIFIERS: GI bleed type/associated pathology: unspecified gastrointestinal hemorrhage type Qualified Code(s): K92.2 - Gastrointestinal hemorrhage, unspecified PLAN: Improved. Patient reports emesis with blood as well as positive guaiac Certainly due to pancolitis, but unclear if upper source as well. Pantoprazole 40 mg IV push twice daily Hg dropped from 15.7 to 13.1. Monitor Hold aspirin and naproxen GI following, suspecting ischemic colitis. (3) Leukocytosis: PLAN: Resolved Reactive from colitis. Monitor (4) Debility: PLAN: PT OT (5) Generalized weakness: PLAN: Most likely related to acute illness PT/OT consultation Monitor clinically for needs at discharge Patient currently resides in assisted living at [place] (6) Bacteriuria: PLAN: 2 GNR 50-80k Unclear if true infection v colonization Already on abx w pip/tazo Follow up final UCx. (7) Acute blood loss anemia: PLAN: Hg dropped from 15.7 to 11.4. 2/2 colitis PLAN: Plan Chronic conditions: Hypertension-Continue home propranolol-Continue home lisinopril-As needed hydralazine for systolic pressure greater than 160 GERD-Hold p.o. PPI-Protonix IV push twice daily History of bowel obstruction-Hold home loperamide-Hold home MiraLAX Osteoarthritis-As needed Tylenol for pain-Hold NSAIDs DVT [id number]-Hqiaxcthqwjfukeh contraindicated due to GI bleeding CODE STATUS: DNR CCA with no intubation Disposition: TBD. monitor at least another night medically. Tentative plan for home with [facility]. RIKC pt's dtr at bedside. Charges/Coding Visit Charges Inpatient E&M: 73514 Subs Hosp L2
[2023-08-03] MEDS: Lisinopril 10 MG Tablet PO (08:56)
[2023-08-03] MEDS: Potassium Chloride Oral Tablet 20 MEQ 60 MEQ PO (08:56)
[2023-08-03] MEDS: Pantoprazole Sodium 40 MG in 0.9% Normal Saline (100mL MB+) 100 ML 330 MG IV (08:56)
[2023-08-03] MEDS: Menthol/Lanolin/Calamine/Znox 113 GM Tube 1 APPLIC TOPICAL (08:57)
[2023-08-03 08:59] VITALS: BP 156/70; PULSE 82; RESP 18; TEMP 36.5; O2SAT 94
--- NOTE | 2023-08-03 09:42 | CASEMGMT ---
JOSE ELIAS JOHNSON made follow-up phone call to [facility] concerning referral that was sent via [employer]. RN ALEX provided intake with the needed information and they informed JOSE ELIAS JOHNSON they will take a look and call back.
--- NOTE | 2023-08-03 10:25 | CASEMGMT ---
Addendum entered by Anila Fierro 08/03/23 13:49: Spoke with hospitalist, pt will dc today. Updated Winnie and [facility] will see pt tomorrow. Addendum entered by Anila Fierro 08/03/23 13:42: Updated Winnie at [facility] that pt will stay one more night in the hospital. [facility] will plan for SOC on Thursday. Original Note: Received returned call from Winnie at [facility], they are able to accept pt with a SOC tomorrow.
--- NOTE | 2023-08-03 11:05 | CASEMGMT ---
Discharge Planning Updates faxed to [facility]. Aure Felton, Discharge Planning Asst.
[2023-08-03] MEDS: Loperamide 2 MG Capsule PO (13:26)
--- NOTE | 2023-08-03 13:48 | DS.PCM_ITS ---
Providers Date of Admission: 07/30/23 Primary Care Physician: Ihsan Cramer, COMPUTATIONAL CHEMIST-C Consultations 07/30/23 16:26 Consult: Gastroenterology Routine Consulting Provider: Alexi Gastroenter[facility] Reason for Consult: Pancolitis EMERGENT Consult: No MD Notified: Yes Date Notified: 07/31/23 Time Notified: 07:20 Method of Notification: Text Reason For Visit: PANCOLITIS/RECTAL BLEEDING Diagnosis Discharge Diagnosis (1) Pancolitis: Status: Acute Code(s): K51.00 - Ulcerative (chronic) pancolitis without complications Plan: Etiology is unclear however likely infectious versus ischemic versus inflammatory C. difficile negative Follow up enteric panel, stool for lactoferrin, BCx pending Clear liquid diet only for now IV fluids as ordered Piperacillin/tazobactam. Discharge with ciprofloxacin and metronidazole for total of 2 weeks. Follow up with GI as outpt for colonoscopy. (2) GI bleeding: Status: Acute Code(s): K92.2 - Gastrointestinal hemorrhage, unspecified Qualifiers: GI bleed type/associated pathology: unspecified gastrointestinal hemorrhage type Qualified Code(s): K92.2 - Gastrointestinal hemorrhage, unspecified Plan: Improved. Patient reports emesis with blood as well as positive guaiac Certainly due to pancolitis, but unclear if upper source as well. Pantoprazole 40 mg IV push twice daily Hg dropped from 15.7 to 13.1. Monitor Hold aspirin and naproxen GI following, suspecting ischemic colitis. (3) Leukocytosis: Status: Acute Code(s): D72.829 - Elevated white blood cell count, unspecified Plan: Resolved Reactive from colitis. Monitor (4) Debility: Status: Acute Code(s): R53.81 - Other malaise Plan: PT OT Discharge with [facility]. (5) Generalized weakness: Status: Acute Code(s): R53.1 - Weakness Plan: Most likely related to acute illness PT/OT consultation Monitor clinically for needs at discharge Patient currently resides in assisted living at [place] (6) Bacteriuria: Status: Acute Code(s): R82.71 - Bacteriuria Plan: 2 GNR 50-80k Unclear if true infection v colonization Already on abx w pip/tazo Follow up final UCx. (7) Acute blood loss anemia: Status: Acute Code(s): D62 - Acute posthemorrhagic anemia Plan: Hg dropped from 15.7 to 11.4. 2/2 colitis Plan Chronic conditions: * Hypertension-Continue home propranolol-Continue home lisinopril-As needed hydralazine for systolic pressure greater than 160 * GERD-Hold p.o. PPI-Protonix IV push twice daily * History of bowel obstruction-Hold home loperamide-Hold home MiraLAX * Osteoarthritis-As needed Tylenol for pain-Hold NSAIDs DVT szfeyfeckcz-YCQm-Vxjqnhwyftuxoria contraindicated due to GI bleeding CODE STATUS: DNR CCA with no intubation Disposition: TBD. monitor at least another night medically. Tentative plan for home with [facility]. DW pt's dtr at bedside. Medications at Discharge Home Medications aspirin 81 mg chewable tablet 81 mg PO DAILY heart health 10/26/13 citalopram 10 mg tablet 10 mg PO QHS depression 01/18/14 acetaminophen 500 mg tablet 1,000 mg PO 4X/DAY PRN Pain 02/24/17 naproxen sodium 220 mg tablet 220 mg PO BID inflammation 03/23/19 lisinopril 10 mg tablet 10 mg PO DAILY blood pressure 05/12/19 loperamide 2 mg capsule 2 mg PO UD PRN loose stool 07/30/23 multivitamin 1 tab PO DAILY health maintenance 07/30/23 omeprazole 40 mg capsule,delayed release 40 mg PO DAILY acid reflux 07/30/23 polyethylene glycol 3350 17 gram/dose oral powder (ClearLax) 17 g PO DAILY constipation 07/30/23 propranolol 80 mg tablet 40 mg PO QHS TREMORS 07/30/23 ciprofloxacin HCl 500 mg tablet 500 mg PO BID #20 tabs 08/03/23 metronidazole 500 mg tablet 500 mg PO Q8H #30 tabs 08/03/23 Hospital Course Operations None Procedures None Summary of Care Provided Minutes Spent on Discharge: 35 Hospital Course: [place] with hematemesis that it is likely resolved. CAT scan showed diffuse colitis. [place] to be more likely ischemic the patient was started on piperacillin/tazobactam for infection. Patient overall did well though she has not had much of an appetite yet though is tolerating p.o. Patient had abnormal urinalysis and urine culture only showed 50-80,000 E. coli. Unclear if that is an actual true infection but patient will be treated with ciprofloxacin nonetheless. Patient did have a drop in her hemoglobin but that is since stab ilized. Patient not had any further hematochezia. Stool is mucousy. Patient may take Imodium as needed. Patient is weak and residing in [facility] in assisted living. She will be discharged back to continue with home health care. Weight / BMI Weight Weight: 98 kg Body Mass Index (BMI) 40.8 ABG / Lab / Microbiology Data 08/03/23 05:50 08/03/23 05:50 Laboratory: Laboratory Results - last 24 hr 08/03/23 05:50: WBC 10.4, RBC 3.63 L, Hgb 11.4 L, Hct 35.5 L, MCV 97.8, MCH 31.4, MCHC 32.1, RDW Std Deviation 48.8 H, RDW Coeff of Lee 13.5, Plt Count 240, MPV 10.5, Immature Gran % (Auto) 0.500, Neut % (Auto) 60.4, Lymph % (Auto) 23.0, [place] % (Auto) 12.5 H, Eos % (Auto) 2.7, Baso % (Auto) 0.9, Absolute Neuts (auto) 6.3, Absolute Lymphs (auto) 2.40, Nucleated RBC % 0, Sodium 141, Potassium 2.9 L , Chloride 110 H, Carbon Dioxide 26.0, Anion Gap 5, BUN 10, Creatinine 0.59, Estim Creat Clear Calc 32.73, Est GFR (MDRD) Af Amer 126, Est GFR (MDRD) Non-Af 104, BUN/Creatinine Ratio 17.0, Glucose 88, Calcium 7.7 L Microbiology: Microbiology 07/30/23 15:08 Blood Culture (Wb) - Right Hand Blood Culture - Preliminary No growth in 48 hours. 07/30/23 14:35 Blood Culture (Wb) - Anticubital Right Blood Culture - Preliminary No growth in 48 hours. 07/30/23 14:50 Urine, Clean Catch Urine Culture - Final Escherichia coli#2 Escherichia coli 07/30/23 23:57 Stool C. difficile DNA Amplification - Final 07/30/23 23:57 Stool Stool Lactoferrin - Final 07/30/23 12:22 Nasal Secretion SARS-CoV-2 & FLU Antigen (Rapid) - Final 07/30/23 12:11 Stool Stool Occult Blood (SHEILA) - Final Occult Blood Positive D/C Instructions Discharge Diet: - ([place] diet. Advance as tolerated.) Call your doctor if you observe: - (Worsening abdominal pain. Recurrent lower intestinal bleeding.) Meaningful Use Info Meaningful Use Diagnoses (Choose all that apply): None applicable Discharge Plan Admission Admit Date/Time: 07/30/23 14:33 Primary Reason for Your Visit: Colitis Attending Provider: Shahab Jo Primary Care Provider: Ihsan Cramer NP Consulting Providers: Dianna Lamar Instructions Additional Instructions / Restrictions: You developed acute colitis. This is likely ischemic we will be treating you for infection with antibiotics. Please take those until those are completed. If your symptoms do get worse or if you have recurrent bleeding, notify someone or return to the emergency room. Please complete your antibiotics as instructed. You may take Imodium for loose stools or diarrhea. Discharge Orders/Prescriptions Prescriptions: New ciprofloxacin HCl 500 mg tablet 500 mg PO BID Qty: 20 0RF metronidazole 500 mg tablet 500 mg PO Q8H Qty: 30 0RF Continued lisinopril 10 mg tablet 10 mg PO DAILY citalopram 10 MG tablet 10 mg PO QHS acetaminophen 500 MG tablet 1,000 mg PO 4X/DAY PRN (Reason: Pain) multivitamin Tablet 1 tab PO DAILY omeprazole 40 mg capsule,delayed release(DR/EC) 40 mg PO DAILY loperamide 2 mg capsule 2 mg PO UD PRN (Reason: loose stool) Hold Instructions: MD Ordered Rx Instructions: take one capsule by mouth as needed for each additional loose stool. do not exceed 8 capsules within a day. propranolol 80 mg tablet 40 mg PO QHS Patient Comments: pt states only taking 40 mg daily polyethylene glycol 3350 [ClearLax] 17 gram/dose powder 17 g PO DAILY Held aspirin 81 MG tablet,chewable 81 mg PO DAILY Hold Instructions: Resume on 08/06/23. naproxen sodium 220 MG tablet 220 mg PO BID Hold Instructions: Resume on 08/06/23. Referrals / Follow Up: Eamon Yang DO [Med Staff - Active Staff] - Within 1 Month Ihsan Cramer NP, COMPUTATIONAL CHEMIST-C [Primary Care Provider] - Within 2 Weeks Disposition Disposition (needs filled in before D/C Order can be placed): Home Health Service Charges/Coding Visit Charges Inpatient E&M: 38991 Disch Hosp >30min
--- NOTE | 2023-08-03 14:33 | PHA.DC.MC.R ---
Pharmacy [facility] has performed discharge medication reconciliation and counseling for this patient. The patient's discharge medication list was reviewed for discrepancies and discrepancies were resolved. The patient was counseled on the following discharge medications and changes in medications for homegoing were reviewed. The Reason for Use, instructions for use, and potential side effects were reviewed for all new medications. The patient's questions regarding all of their medications were answered. 1. Ciprofloxacin 500 mg PO BID x 10 days 2. Metronidazole 500 mg PO Q8H x 10 days The patient and patient's daughter were able to verbally demonstrate an understanding of their discharge medications. Medications at Discharge Home Medications aspirin 81 mg chewable tablet 81 mg PO DAILY heart health 10/26/13 citalopram 10 mg tablet 10 mg PO QHS depression 01/18/14 acetaminophen 500 mg tablet 1,000 mg PO 4X/DAY PRN Pain 02/24/17 naproxen sodium 220 mg tablet 220 mg PO BID inflammation 03/23/19 lisinopril 10 mg tablet 10 mg PO DAILY blood pressure 05/12/19 loperamide 2 mg capsule 2 mg PO UD PRN loose stool 07/30/23 multivitamin 1 tab PO DAILY health maintenance 07/30/23 omeprazole 40 mg capsule,delayed release 40 mg PO DAILY acid reflux 07/30/23 polyethylene glycol 3350 17 gram/dose oral powder (ClearLax) 17 g PO DAILY constipation 07/30/23 propranolol 80 mg tablet 40 mg PO QHS TREMORS 07/30/23 ciprofloxacin HCl 500 mg tablet 500 mg PO BID #20 tabs 08/03/23 metronidazole 500 mg tablet 500 mg PO Q8H #30 tabs 08/03/23
[2023-08-03 15:04] VITALS: BP 128/88; PULSE 80; RESP 17; TEMP 36.6; O2SAT 94
--- NOTE | 2023-08-03 15:19 | CASEMGMT ---
Discharge Planning Discharge summary faxed to [facility]. Aure Felton, Discharge Planning Asst.
--- NOTE | 2023-08-03 15:30 | CASEMGMT ---
Social Work - Discharge note Patient being discharged back to [facility]. Called admissions/marketing operations associate Charito to update. Informed that orders are being faxed over and daughter will be transporting. Met with patient in room to confirm that was aware of discharge and whether daughter needed to be called. Daughter in room and reports awareness. Neither patient or daughter expressed additional concerns. Skilled HHC set up by JOSE ELIAS JOHNSON, with start of care for this week. No other services requested or indicated. -MENDOZA Romero
== END 2023-08-03 15:43 | disposition home or self-care (01) | DRG 394 ==
LOC: ED 15:02 → MS3 15:13
PROVIDERS: Admitting Provider Internal Medicine; Emergency Provider Emergency Medicine; PCP Nurse Practitioner Family
DX: K55.052 Diffuse acute (reversible) ischemia of intestine, part unspecified (principal); K92.0 Hematemesis; D62 Acute posthemorrhagic anemia; Z68.41 Body mass index [BMI] 40.0-44.9, adult; E66.01 Morbid (severe) obesity due to excess calories; I10 Essential (primary) hypertension; E86.0 Dehydration; K21.9 Gastro-esophageal reflux disease without esophagitis; E55.9 Vitamin D deficiency, unspecified; M19.90 Unspecified osteoarthritis, unspecified site; R82.71 Bacteriuria; Z66 Do not resuscitate; Z13.1 Encounter for screening for diabetes mellitus; Z13.220 Encounter for screening for lipoid disorders; Z79.82 Long term (current) use of aspirin; Z79.899 Other long term (current) drug therapy; Z87.19 Personal history of other diseases of the digestive system; Z87.891 Personal history of nicotine dependence
CPT/HCPCS: 36415; 71045; 74177; 80048; 80053; 80061; 80076; 81001; 82274; 82306; 82962; 83036; 83630; 83690; 83735; 83880; 84100; 84484; 85025; 85610; 85730; 86850; 86900; 86901; 87040; 87077; 87086; 87088; 87186; 87428; 87493; 93005; 94668; 97110; 97162; 97166; 97530; 97535; 99285; J7030; J7040; J7050; Q9967; A4216

== ENCOUNTER 2023-08-09 13:36 | Inpatient (IN) | payer MEDICARE, SELFPAY ==
[2023-08-09 13:38] VITALS: BP 124/58; PULSE 78; RESP 22; TEMP 37.6; O2SAT 92; BMI 43.4
--- NOTE | 2023-08-09 14:02 | EKG12_ITS ---
Test Reason : WEAKNESS Blood Pressure : / mmHG Vent. Rate : 076 BPM Atrial Rate : 076 BPM P-R Int : 136 ms QRS Dur : 078 ms QT Int : 398 ms P-R-T Axes : 063 -41 002 degrees QTc Int : 447 ms Normal sinus rhythm Left axis deviation Abnormal ECG Confirmed by SORAIDA FAULKNER, DOMENICA ([id number]), dictionary editor JOSE ALEJANDRO CABALLERO ([id number]) on 08/17/2023 7:06:36 AM Referred By: Confirmed By:JESSICA QUIGLEY MD
--- NOTE | 2023-08-09 14:02 | RAD_ITS ---
EXAM: XR CHEST, 1 VIEW CLINICAL INDICATION: chest pain TECHNIQUE: Frontal view of the chest. COMPARISON: 07.30.23 FINDINGS: LUNGS AND PLEURAL SPACES: Left lung infiltrate suggesting pneumonia is worse. This may be a combination of pulmonary fibrosis and pneumonia. No pneumothorax. No effusion. HEART: Unremarkable. Cardiac silhouette not enlarged. MEDIASTINUM: Central airways and mediastinal contour are unremarkable. BONES/JOINTS: Unremarkable. SOFT TISSUES: Unremarkable. RAD/Chest 1 View (Portable) IMPRESSION: Left lung infiltrate suggesting pneumonia is worse. This may be a combination of pulmonary fibrosis and pneumonia. Electronically Signed: Samuel Mckee MD at 14:49 EST ,
--- NOTE | 2023-08-09 14:03 | EX.ED.DYSGE1 ---
HPI <KAREN Coburn - Last Filed: 08/09/23 15:57> History of Present Illness Chief Complaint: Weakness Narrative Narrative: Patient is an 82-year-old female who lives at independent living at [facility] presents to the emergency department for ongoing weakness. Per the daughter who has been living with her for the last week states that since has been home from the hospital for over the last week she has been declining. Patient was admitted for pancolitis, she is currently on Cipro and Flagyl. Per the daughter, the patient is unable to get up out of a chair, and she is here for evaluation. Per the daughter, the patient has been more tired, been more confused, and has had dark-colored urine. Patient has had no cough, fever, no description of blood in stool. The daughter states that the patient cannot take care of herself and does not belong in independent living. PFSH <KAREN Coburn - Last Filed: 08/09/23 15:57> [facility] Medical History Arthritis Bowel obstruction History of shingles Hypertension Home Medications aspirin 81 mg chewable tablet 81 mg PO DAILY heart health 10/26/13 [History Last Taken 07/30/23] citalopram 10 mg tablet 10 mg PO QHS depression 01/18/14 [History Last Taken 08/08/23] acetaminophen 500 mg tablet 1,000 mg PO 4X/DAY PRN Pain 02/24/17 [History Last Taken 08/08/23] naproxen sodium 220 mg tablet 220 mg PO BID inflammation 03/23/19 [History Last Taken 08/08/23] lisinopril 10 mg tablet 10 mg PO DAILY blood pressure 05/12/19 [History Last Taken 08/09/23] loperamide 2 mg capsule 2 mg PO UD PRN loose stool 07/30/23 [History Last Taken 08/09/23] multivitamin 1 tab PO DAILY health maintenance 07/30/23 [History Last Taken 07/30/23] omeprazole 40 mg capsule,delayed release 40 mg PO DAILY acid reflux 07/30/23 [History Last Taken 08/09/23] polyethylene glycol 3350 17 gram/dose oral powder (ClearLax) 17 g PO DAILY constipation 07/30/23 [History Last Taken Unknown] propranolol 80 mg tablet 80 mg PO DAILY heart 07/30/23 [History Last Taken 08/09/23] ciprofloxacin HCl 500 mg tablet 500 mg PO BID UTI #20 tabs 08/03/23 [Rx Last Taken 08/09/23] metronidazole 500 mg tablet 500 mg PO Q8H infection #30 tabs 08/03/23 [Rx Last Taken 08/09/23] Allergy/AdvReac Type Severity Reaction Status Date / Time Sulfa (Sulfonamide Allergy Unknown Unknown Verified 08/09/23 13:37 Antibiotics) adhesive Allergy Rash Verified 08/09/23 13:37 Family History Father Hypertension Heart disease Surgical History Hx of tonsillectomy S/P [facility] Social History housing: assisted living facility Smoking Status: Former smoker alcohol intake: current alcohol intake frequency: holidays/special occasions only substance use type: does not use seatbelt use: always do you feel safe at home: Yes additional social history: Mehrdad 1993 ROS <KAREN Coburn - Last Filed: 08/09/23 15:57> ROS ED ROS Narrative Constitutional: Negative for fever, chills, weight loss. Positive for generalized weakness Eyes: Negative for vision loss, vision change, double vision ENT: Negative for any sore throat, ear pain, congestion Cardiovascular: Negative for any chest pain, tightness, palpitations Respiratory: Negative for any cough, sputum production, hemoptysis, dyspnea, dyspnea on exertion, orthopnea Gastrointestinal: Negative for any abdominal pain, nausea, vomiting, diarrhea, constipation, blood in stool, blood in vomit : Negative for any urinary frequency, dysuria, retention, blood in urine. Positive for dark-colored urine Muscle skeletal: Negative for any muscle joint pain, stiffness, myalgias, arthralgias, neck pain, back pain. Positive for lower leg edema Neurological: Negative for any headache, syncope, numbness or tingling, dizziness Skin: Negative for any rashes, lumps, itching, abrasions, lacerations Psychiatric: Negative for any depression, anxiety, stress, suicidal ideation, homicidal ideation Hematologic: Negative for any easy bruising, excessive bruising, easy bleeding Allergies: Negative for any eczema, hives, rash EXAM <KAREN Coburn - Last Filed: 08/09/23 15:57> Physical Exam Narrative Exam Narrative: Vital signs reviewed. Patient is alert and orient x4 however does appear slightly lethargic, she does answer questions however does fall asleep. HEET: Head normocephalic atraumatic, TMs clear bilaterally. Posterior pharynx is clear, dry mucous membranes. Nares clear bilaterally. Neck: Supple with no lymphadenopathy or tenderness. No signs of meningismus, negative jolt sign. Cardiac: Regular rate and rhythm no murmurs gallops or rubs, equal peripheral pulses bilaterally. Respiratory: Patient has crackles to bilateral mid to lower bases. No chest tenderness. Abdomen: Soft, nontender, nondistended. No abdominal bruit or pulsatile masses. No hepatosplenomegaly. Active bowel sounds in all quadrants Extremities: +2 pitting edema bilateral, no signs of gross trauma or deformity. Active full range of motion of all extremities. Neuro: Cranial nerves II through XII intact, no focal neurological deficits. Skin: Clean dry and intact with no rash, purpura, petechiae, vesicles or pustules. Backs/flank: No CVA tenderness, no midline spinal tenderness, no deformity. Psych: Normal mood and affect. No SI, HI or acute psychosis. Const Vital Signs: 08/09/23 15:29 08/09/23 16:01 Temperature 98.6 F 97.9 F Temperature Source Oral Pulse Rate 77 77 Respiratory Rate 18 17 Blood Pressure 135/58 H 115/54 L Blood Pressure Mean 83 74 Pulse Ox 94 94 Oxygen Delivery Method Room Air Positive obese Nutritional Appearance: obese <Dr. David Webber, DO - Last Filed: 08/10/23 13:51> Physical Exam Const Vital Signs: 08/09/23 15:29 08/09/23 16:01 Temperature 98.6 F 97.9 F Temperature Source Oral Pulse Rate 77 77 Respiratory Rate 18 17 Blood Pressure 135/58 H 115/54 L Blood Pressure Mean 83 74 Pulse Ox 94 94 Oxygen Delivery Method Room Air MDM <KAREN Coburn - Last Filed: 08/09/23 15:57> MDM Lab Data Labs: Laboratory Results - last 24 hr 08/09/23 08/09/23 08/09/23 13:30 13:50 14:45 WBC 12.0 H RBC 3.99 L Hgb 12.1 Hct 39.3 MCV 98.5 MCH 30.3 MCHC 30.8 L RDW Std Deviation 51.1 H RDW Coeff of Lee 14.1 Plt Count 395 MPV 9.4 Immature Gran % (Auto) 0.800 Neut % (Auto) 79.4 H Lymph % (Auto) 12.0 L [place] % (Auto) 6.3 Eos % (Auto) 0.8 Baso % (Auto) 0.7 Absolute Neuts (auto) 9.6 H Absolute Lymphs (auto) 1.44 Nucleated RBC % 0 PT 15.3 H INR 1.2 Sodium 134 L Potassium 3.7 Chloride 99 Carbon Dioxide 32.0 Anion Gap 3 L BUN 14 Creatinine 0.87 Estim Creat Clear Calc 37.62 Est GFR (MDRD) Af Amer 80 Est GFR (MDRD) Non-Af 66 BUN/Creatinine Ratio 16.0 Glucose 107 H Lactic Acid 1.1 Calcium 8.0 L Troponin I High Sens 7 B-Natriuretic Peptide 167.8 H Urine Color Ly Urine Clarity Clear Urine pH 5.0 Ur Specific Adams 1.020 Urine Protein 30 H Urine Glucose (UA) Normal Urine Ketones 5 H Urine Occult Blood 10 H Urine Nitrite Positive H Urine Bilirubin 1 H Urine Urobilinogen 1 H Ur Leukocyte Esterase 100 H Urine RBC 0-5 SEEN Urine WBC 5-10 SEEN Ur Squamous Epith Cells 0-5 SEEN Amorphous Sediment 1+ URATE Urine Bacteria RARE Urine Mucus 0 SEEN 08/09/23 16:15 WBC RBC Hgb Hct MCV MCH MCHC RDW Std Deviation RDW Coeff of Lee Plt Count MPV Immature Gran % (Auto) Neut % (Auto) Lymph % (Auto) [place] % (Auto) Eos % (Auto) Baso % (Auto) Absolute Neuts (auto) Absolute Lymphs (auto) Nucleated RBC % PT INR Sodium Potassium Chloride Carbon Dioxide Anion Gap BUN Creatinine Estim Creat Clear Calc Est GFR (MDRD) Af Amer Est GFR (MDRD) Non-Af BUN/Creatinine Ratio Glucose Lactic Acid Calcium Troponin I High Sens 7 B-Natriuretic Peptide Urine Color Urine Clarity Urine pH Ur Specific Adams Urine Protein Urine Glucose (UA) Urine Ketones Urine Occult Blood Urine Nitrite Urine Bilirubin Urine Urobilinogen Ur Leukocyte Esterase Urine RBC Urine WBC Ur Squamous Epith Cells Amorphous Sediment Urine Bacteria Urine Mucus Radiography Diagnostic Testing: Clinical Impression(s) from Imaging Studies Chest X-Ray 08/09/23 14:02 IMPRESSION: Left lung infiltrate suggesting pneumonia is worse. This may be a combination of pulmonary fibrosis and pneumonia. Electronically Signed: Samuel Mckee MD at 14:49 EST , Treatment and Re-Evaluation :: Patient is alert and oriented, patient does appear lethargic, weak appearing. Vital signs are stable. Patient is nonfebrile. Patient presents to the emergency department by ambulance from [facility] for weakness, failure to thrive, not doing well since being released in the hospital. She is continue taking her Cipro and Flagyl. Differential diagnosis includes UTI, septicemia, anemia, viral-like symptoms. Patient will receive a COVID and flu, as well as two-view chest x-ray concerning for any pneumonia, fluid overload. Secondary to the patient's bilateral lower leg edema, proBNP will be ordered. Troponin x2. Patient received CBC, BMP concerning for leukocytosis, anemia, electrolyte abnormality. Urinalysis will be collected concern for any UTI. Patient laboratory values show leukocytosis with white blood count 12.0. This is up from 10.4 on August 03, 2023. Patient's proBNP is 167.8, this is unchanged since previous. Patient's chest x-ray shows left lung infiltrate suggestive of pneumonia that is worse. This could explain the patient's leukocytosis. Patient's urinalysis did show nitrates, leukocyte Estrace however does does not appear to be improved from July 30, 2023. I did try to perform a ambulation on pulse ox however the patient is unable to sit up on her own. Per the daughter, took 3 people to get her up from the chair at the [facility]. At this time, patient be treated with a hospital-acquired pneumonia. She was placed on Zosyn, vancomycin. I will speak with hospitalist. Spoke with the patient's family is agreeable. Hospitalist agrees, patient stable for admission. <Dr. David Webber, DO - Last Filed: 08/10/23 13:51> [facility] Narrative Medical decision making narrative: Patient is alert and oriented, patient does appear lethargic, weak appearing. Vital signs are stable. Patient is nonfebrile. Patient presents to the emergency department by ambulance from [facility] for weakness, failure to thrive, not doing well since being released in the hospital. She is continue taking her Cipro and Flagyl. Differential diagnosis includes UTI, septicemia, anemia, viral-like symptoms. Patient will receive a COVID and flu, as well as two-view chest x-ray concerning for any pneumonia, fluid overload. Secondary to the patient's bilateral lower leg edema, proBNP will be ordered. Troponin x2. Patient received CBC, BMP concerning for leukocytosis, anemia, electrolyte abnormality. Urinalysis will be collected concern for any UTI. Patient laboratory values show leukocytosis with white blood count 12.0. This is up from 10.4 on August 03, 2023. Patient's proBNP is 167.8, this is unchanged since previous. Patient's chest x-ray shows left lung infiltrate suggestive of pneumonia that is worse. This could explain the patient's leukocytosis. Patient's urinalysis did show nitrates, leukocyte Estrace however does does not appear to be improved from July 30, 2023. I did try to perform a ambulation on pulse ox however the patient is unable to sit up on her own. Per the daughter, took 3 people to get her up from the chair at the [facility]. At this time, patient be treated with a hospital-acquired pneumonia. She was placed on Zosyn, vancomycin. I will speak with hospitalist. Spoke with the patient's family is agreeable. Hospitalist agrees, patient stable for admission. Insert ED attestation. Patient presenting with increased lethargy and inability to ambulate. Took 3 people to get her up today to bring her in.Patient with recent colitis on Cipro and Flagyl. Differential as above. Work-up ultimately shows left lower lobe infiltrate with a leukocytosis of 12. Urinalysis looks improved. Vital signs are fairly stable however the patient is not able to get up and ambulate so I cannot ambulate her with pulse ox. Patient started on vancomycin and Zosyn to cover for hospital-acquired pneumonia. Discussed with hospitalist for admission. Lab Data Attestation: I reviewed the patient's lab results. Labs: Laboratory Results - last 24 hr 08/09/23 08/09/23 08/09/23 13:30 13:50 14:45 WBC 12.0 H RBC 3.99 L Hgb 12.1 Hct 39.3 MCV 98.5 MCH 30.3 MCHC 30.8 L RDW Std Deviation 51.1 H RDW Coeff of Lee 14.1 Plt Count 395 MPV 9.4 Immature Gran % (Auto) 0.800 Neut % (Auto) 79.4 H Lymph % (Auto) 12.0 L [place] % (Auto) 6.3 Eos % (Auto) 0.8 Baso % (Auto) 0.7 Absolute Neuts (auto) 9.6 H Absolute Lymphs (auto) 1.44 Nucleated RBC % 0 PT 15.3 H INR 1.2 Sodium 134 L Potassium 3.7 Chloride 99 Carbon Dioxide 32.0 Anion Gap 3 L BUN 14 Creatinine 0.87 Estim Creat Clear Calc 37.62 Est GFR (MDRD) Af Amer 80 Est GFR (MDRD) Non-Af 66 BUN/Creatinine Ratio 16.0 Glucose 107 H Lactic Acid 1.1 Calcium 8.0 L Troponin I High Sens 7 B-Natriuretic Peptide 167.8 H Urine Color Ly Urine Clarity Clear Urine pH 5.0 Ur Specific Adams 1.020 Urine Protein 30 H Urine Glucose (UA) Normal Urine Ketones 5 H Urine Occult Blood 10 H Urine Nitrite Positive H Urine Bilirubin 1 H Urine Urobilinogen 1 H Ur Leukocyte Esterase 100 H Urine RBC 0-5 SEEN Urine WBC 5-10 SEEN Ur Squamous Epith Cells 0-5 SEEN Amorphous Sediment 1+ URATE Urine Bacteria RARE Urine Mucus 0 SEEN 08/09/23 16:15 WBC RBC Hgb Hct MCV MCH MCHC RDW Std Deviation RDW Coeff of Lee Plt Count MPV Immature Gran % (Auto) Neut % (Auto) Lymph % (Auto) [place] % (Auto) Eos % (Auto) Baso % (Auto) Absolute Neuts (auto) Absolute Lymphs (auto) Nucleated RBC % PT INR Sodium Potassium Chloride Carbon Dioxide Anion Gap BUN Creatinine Estim Creat Clear Calc Est GFR (MDRD) Af Amer Est GFR (MDRD) Non-Af BUN/Creatinine Ratio Glucose Lactic Acid Calcium Troponin I High Sens 7 B-Natriuretic Peptide Urine Color Urine Clarity Urine pH Ur Specific Adams Urine Protein Urine Glucose (UA) Urine Ketones Urine Occult Blood Urine Nitrite Urine Bilirubin Urine Urobilinogen Ur Leukocyte Esterase Urine RBC Urine WBC Ur Squamous Epith Cells Amorphous Sediment Urine Bacteria Urine Mucus Radiography Diagnostic Testing: Clinical Impression(s) from Imaging Studies Chest X-Ray 08/09/23 14:02 IMPRESSION: Left lung infiltrate suggesting pneumonia is worse. This may be a combination of pulmonary fibrosis and pneumonia. Electronically Signed: Samuel Mckee MD at 14:49 EST Reading Location ID and State: [facility] / [place] , Service support , Discharge Plan Dx/Rx/DC Orders Clinical Impression: UTI (urinary tract infection), HAP (hospital-acquired pneumonia), Weakness Disposition Disposition: Acute Care Hospital [facility] Discharge Date/Time: 08/09/23 16:19
[2023-08-09 14:14] LABS: Absolute Lymphocyte Count 1.44 X10^3/uL (0.83-4.51); Absolute Neutrophil Count 9.6 X10^3/uL (2.0-7.7); Basophil# 0.09 X10^3/uL; Basophil% 0.7 % (0-1); Eosinophils% 0.8 % (0-5); Hematocrit 39.3 % (37-47); Hemoglobin 12.1 g/dL (12.0-15.0); Lymphocyte # 1.44 X10^3/ul (0.83-4.51); Mean Corp Hgb Conc 30.8 g/dL (32-36); Mean Corpuscular Hgb 30.3 pg (27.0-32.0); Mean Corpuscular Volume 98.5 fL (81-99); Mean Platelet Vol. 9.4 fl (6.2-12.0); Monocyte# 0.76 X10^3/uL; Monocyte% 6.3 % (0-10); NRBC Flagged by Analyzer 0 % (0-5); Neutrophil # 9.55 X10^3/uL (2.7-7.7); Neutrophil % 79.4 % (47-70); Platelet Count 395 K/mm3 (150-450); RBC Distribution Width CV 14.1 % (11.6-14.6); RBC Distribution Width SD 51.1 fl (35.1-43.9); Red Blood Count 3.99 M/mm3 (4.2-5.4)
[2023-08-09 14:27] LABS: Anion Gap 3 (5-15); BUN 14 mg/dL (7-18); Chloride 99 mmol/L (98-107); Creatinine, Serum 0.87 mg/dL (0.55-1.02); EST Glomerular Filtration Rate 66 mL/min (>60); Est Glom Filt Rate - Afr Amer 80 mL/min (>60); Estimated Creatinine Clearance 37.62 ml/min; Glucose 107 mg/dL (74-106); Potassium 3.7 mmol/L (3.5-5.1); Sodium Level 134 mmol/L (136-145); Troponin-I HS (w/2H Reflex) 7 pg/mL (3.0-54.0)
[2023-08-09 14:33] LABS: International Normalized Ratio 1.2; Prothrombin Time (Protime)PT. 15.3 SECONDS (11.7-14.9)
[2023-08-09 14:41] LABS: BNP,B-Type NATRIURETIC PEPTIDE 167.8 pg/mL (0-100)
[2023-08-09 14:49] LABS: Mucous, Urine 0 SEEN /hpf (<or=2+)
[2023-08-09 15:05] LABS: Color, Urine Amber (Yellow); Glucose, Dipstick Normal (Normal); Ketone-Dipstick 5 mg/dl (Negative); Leukocyte Esterase-Dipstick 100 /ul (Negative); Nitrite-Dipstick Positive (Negative); Occult Blood-Urine 10 /ul (Negative); Protein-Dipstick 30 mg/dl (Negative); Urine Clarity Clear (Clear); Urine Urobilinogen 1 mg/dl (Normal)
[2023-08-09 15:08] LABS: Urine Bilirubin Dipstick 1 mg/dL (Negative)
[2023-08-09] MEDS: Piperacil/Tazobactam 3.375 GM in 0.9% Normal Saline (50mL MB+) 50 ML IV ×2 (15:27→21:52)
[2023-08-09 15:29] VITALS: BP 135/58; PULSE 77; RESP 18; TEMP 37; O2SAT 94
[2023-08-09 15:30] LABS: Amorphous Sediment 1+ URATE; Bacteria RARE /hpf (None Seen); Red Blood Cells-Urine 0-5 SEEN /hpf (0-5); Squamous Epithelial Cells - UA 0-5 SEEN /hpf (5-10); White Blood Cells 5-10 SEEN /hpf (0-5)
[2023-08-09 15:49] LABS: Lactic Acid 1.1 mmol/L (0.4-1.9)
--- NOTE | 2023-08-09 15:58 | NURSING ---
[facility]
[2023-08-09] MEDS: Vancomycin HCl 2,000 MG in 0.9% Normal Saline (500mL Bag) 500 ML 250 MG IV (16:00)
[2023-08-09 16:01] VITALS: BP 115/54; PULSE 77; RESP 17; TEMP 36.6; O2SAT 94
[2023-08-09 16:07] LABS: Reflex Troponin-HS? (from REC) Y
[2023-08-09 16:37] LABS: Troponin-I HS 7 pg/mL (3.0-54.0)
--- NOTE | 2023-08-09 16:41 | HP.PCM.HOS_ITS ---
HPI - General General Date of Admission: 08/09/23 Date of Service: 08/09/23 Chief Complaint: Generalized weakness HPI Narrative FLORIAN CHAPMAN, is a 82F with history of hypertension and arthritis who lives at [facility] presented to [facility] 08/09/2023 with increasing weakness and fall today. She had been in the hospital recently for pancolitis and was discharged on Cipro and Flagyl 1 week ago but since d ischarge has had increasing weakness and had a fall in the bathroom today that required several people to help get her up and she has been max assist despite previously being independent. She has been more tired and confused and urine has been dark. In ED UA suggestive of UTI but she also had chest x-ray suggestive of pneumonia and she was started on antibiotics and given her concurrent weakness and falls hospitalist contacted for admission. Patient evaluated with family members at bedside. Patient somewhat poor historian with symptomatology and said she still has the left lower quadrant abdominal pain and diarrhea which is about the same as previous, presently has some back pain because she is laying in bed, thinks that maybe she could have had some shortness of breath this past week but was not sure and was inconsistent, no cough, did not voice urinary complaints but had difficulty getting any specific complaints other than her continued abdominal pain and diarrhea and reiterated the generalized weakness. Family member also reiterated that usually she is independent but she is required multiple people to help her today and she is practically weight when they tried to move her. Additionally she has had some erythema on her right leg and may be slight increase swelling compared to left leg but patient reports both legs stay swollen. [facility], [facility] Medical History Arthritis Bowel obstruction History of shingles Hypertension Home Medications aspirin 81 mg chewable tablet 81 mg PO DAILY heart health 10/26/13 [History Last Taken 07/30/23] citalopram 10 mg tablet 10 mg PO QHS depression 01/18/14 [History Last Taken 01/25] acetaminophen 500 mg tablet 1,000 mg PO 4X/DAY PRN Pain 02/24/17 [History Last Taken 08/08/23] naproxen sodium 220 mg tablet 220 mg PO BID inflammation 03/23/19 [History Last Taken 08/08/23] lisinopril 10 mg tablet 10 mg PO DAILY blood pressure 05/12/19 [History Last Taken 08/09/23] loperamide 2 mg capsule 2 mg PO UD PRN loose stool 07/30/23 [History Last Taken 08/09/23] multivitamin 1 tab PO DAILY health maintenance 07/30/23 [History Last Taken 07/30/23] omeprazole 40 mg capsule,delayed release 40 mg PO DAILY acid reflux 07/30/23 [History Last Taken 08/09/23] polyethylene glycol 3350 17 gram/dose oral powder (ClearLax) 17 g PO DAILY constipation 07/30/23 [History Last Taken Unknown] propranolol 80 mg tablet 80 mg PO DAILY heart 07/30/23 [History Last Taken 08/09/23] ciprofloxacin HCl 500 mg tablet 500 mg PO BID UTI #20 tabs 08/03/23 [Rx Last Taken 08/09/23] metronidazole 500 mg tablet 500 mg PO Q8H infection #30 tabs 08/03/23 [Rx Last Taken 08/09/23] Allergy/AdvReac Type Severity Reaction Status Date / Time Sulfa (Sulfonamide Allergy Unknown Unknown Verified 08/09/23 13:37 Antibiotics) adhesive Allergy Rash Verified 08/09/23 13:37 Family History Father Hypertension Heart disease Surgical History Hx of tonsillectomy S/P [facility] Social History (Updated 07/30/23 @ 15:[address] Dianna Lamar DO) housing: assisted living facility Smoking Status: Former smoker alcohol intake: current alcohol intake frequency: holidays/special occasions only substance use type: does not use seatbelt use: always do you feel safe at home: Yes additional social history: Mehrdad 1994 ROS ROS Narrative General: Denies fever/chills HENT: Denies headache, denies stuffy nose, denies sore throat EYES: Denies changes in vision Resp: Denies cough, unclear if there has been some shortness of breath Cardiac: Denies chest pain GI: Still has some left lower quadrant abdominal pain with diarrhea, has not been worsening : Denies changes in urination Extremity: Lower extremity swelling possibly right more so than left MSK: Generalized weakness Neuro: Denies any numbness/tingling Heme: Denies any bleeding or bruising Skin: Denies rashes but does have some redness of right lower extremity compared to left Psychiatric: Just feels tired and generally unwell Vital Signs Vital Signs Vital Signs: 08/09/23 13:38 08/09/23 13:40 08/09/23 15:29 Temperature 99.7 F H 98.6 F Temperature Source Temporal Oral Pulse Rate 78 77 Respiratory Rate 22 H 18 Respiratory Effort Normal Non-Labored Respiratory Pattern Normal Blood Pressure 124/58 H 135/58 H Blood Pressure Mean 80 83 Pulse Ox 92 94 Oxygen Delivery Method Room Air Room Air 08/09/23 16:01 Temperature 97.9 F Temperature Source Pulse Rate 77 Respiratory Rate 17 Respiratory Effort Respiratory Pattern Blood Pressure 115/54 L Blood Pressure Mean 74 Pulse Ox 94 Oxygen Delivery Method Weight Weight: 104.4 kg Body Mass Index (BMI) 43.4 Physical Exam Narrative General: Alert, answer orientation questions but has difficulty answering specific symptomatology questions HEENT: Atraumatic, normocephalic, tremor noted Eyes: Anicteric, normal conjunctiva, extraocular movements grossly intact Neck: Supple Respiratory: Crackles left greater than right, normal respiratory effort Cardiovascular: Regular rate GI: Soft, slightly tender on the left lower quadrant without rebound, guarding, rigidity, nondistended Extremities: Trace to 1+ bilateral lower extremity edema, right leg is somewhat erythematous compared to left Musculoskeletal: Moving all extremities Neuro: No overt focal neurological deficits, facial tremor noted Skin: Erythema of right lower extremity as above Psych: Slow to engage Results Lab / Micro Data 08/09/23 13:50 08/09/23 13:50 Labs: Laboratory Results - last 24 hr 08/09/23 13:30: Lactic Acid 1.1 08/09/23 13:50: WBC 12.0 H, RBC 3.99 L, Hgb 12.1, Hct 39.3, MCV 98.5, MCH 30.3, MCHC 30.8 L, RDW Std Deviation 51.1 H, RDW Coeff of Lee 14.1, Plt Count 395, MPV 9.4, Immature Gran % (Auto) 0.800, Neut % (Auto) 79.4 H, Lymph % (Auto) 12.0 L, [place] % (Auto) 6.3, Eos % (Auto) 0.8, Baso % (Auto) 0.7, Absolute Neuts (auto) 9.6 H, Absolute Lymphs (auto) 1.44, Nucleated RBC % 0, PT 15.3 H, INR 1.2, Sodium 134 L, Potassium 3.7, Chloride 99, Carbon Dioxide 32.0, Anion Gap 3 L, BUN 14, Creatinine 0.87, Estim Creat Clear Calc 37.62, Est GFR (MDRD) Af Amer 80, Est GFR (MDRD) Non-Af 66, BUN/Creatinine Ratio 16.0, Glucose 107 H, Calcium 8.0 L, Troponin I High Sens 7, B-Natriuretic Peptide 167.8 H 08/09/23 14:45: Urine Color Ly, Urine Clarity Clear, Urine pH 5.0, Ur Specific [place] 1.020, Urine Protein 30 H, Urine Glucose (UA) Normal, Urine Ketones 5 H, Urine Occult Blood 10 H, Urine Nitrite Positive H, Urine Bilirubin 1 H, Urine Urobilinogen 1 H, Ur Leukocyte Esterase 100 H, Urine RBC 0-5 SEEN, Urine WBC 5-10 SEEN, Ur Squamous Epith Cells 0-5 SEEN, Amorphous Sediment 1+ U RATE, Urine Bacteria RARE, Urine Mucus 0 SEEN 08/09/23 16:15: Troponin I High Sens 7 Micro: Microbiology 08/09/23 14:20 Nasal Secretion SARS-CoV-2 & FLU Antigen (Rapid) - Final Radiology Impression Chest X-Ray 08/09/23 14:02 IMPRESSION: Left lung infiltrate suggesting pneumonia is worse. This may be a combination of pulmonary fibrosis and pneumonia. Electronically Signed: Samuel Mckee MD at 14:49 EST Reading Location ID and State: [facility] / [place] , Service support , Assessment & Plan Assessment/Plan (1) Weakness: PLAN: Plan #Generalized weakness/fall/slightly confused -Likely secondary to underlying infection with slight bump in white count with left shift as well as multiple possible etiologies though unclear if it is pneumonia, UTI, or right lower extremity cellulitis as patient has very difficult time giving symptomatology and continues to repeat she just feels generally weak and unwell -No cough so less likely pneumonia but with continued diarrhea will check respiratory panel, COVID-negative, advised patient begins to bring up sputum we can get culture -UA could be suggestive of UTI, urine culture ordered -Monitor erythema of right lower extremity -We will broaden antibiotic spectrum given she is already on Cipro and Flagyl as it may be resistant to fluoroquinolones, MRSA swab so can de-escalate vancomycin if negative -Ciprofloxacin can also worsen confusion in the elderly, given likely UTI despite antibiotics will change from quinolone anyway while awaiting cultures -Given diarrhea, confusion, generalized weakness we will check TSH and B12 as well as liver function -PT/OT -CM/SW consult #RLE erythema -And daughter reports she thinks it is more swollen compared to left, both legs seem to be about the same amount of swelling but does have some increased erythema on right lower extremity -We will check vascular duplex just to verify no thrombus or confounding factor -Broad-spectrum antibiotics -BNP slightly elevated but similar to previous and do not think patient is acutely overloaded at this time but can always consider echocardiogram if any worsening respiratory status or increase swelling, daily weights, I's and O's #Recent pancolitis -C. difficile and enteric panel has been negative -On Cipro and Flagyl, ciprofloxacin can cause confusion in elderly, will switch antibiotics to Zosyn -We will need outpatient GI follow-up #Tremors -Chronic -On d/c summ pt was on 40 of propranolol, this is what was continued here #Hypertension -Continue present medications #DVT ppx: Lovenox subcu Bruna Ruiz MD Time spent in the patient's overall evaluation,decision-making process, review of diagnostic data, adjustment of management, discussion with other providers, nursing nursing and ancillary staff involved in patient's care documentation, 55 minutes Charges/Coding Visit Charges Inpatient E&M: 65645 Init Hosp L2
[2023-08-09 16:50] VITALS: BP 131/71; PULSE 79; RESP 18; TEMP 36.6; O2SAT 95; BMI 43.2
--- NOTE | 2023-08-09 17:04 | VDLE_ITS ---
Reason For Study: RLE Swelling RIGHT LEFT GSV is normal. CFV is compressible, spontaneous, phasic, CFV is compressible, spontaneous, phasic, competent, and demonstrates normal competent and demonstrates normal augmentation. augmentation. FV is compressible, spontaneous, phasic, competent and demonstrates normal augmentation. POP V is compressible, spontaneous, phasic, competent and demonstrates normal augmentation. T/P Trunk is compressible. PTV is compressible. RT PerV is compressible. Procedure This is a venous duplex using B-mode, color flow and spectral Doppler. Exam performed portable in patient room. The study was technically difficult due to body habitus, swelling and patient intolerance to compression. Limited views were obtained within mid and distal FV and calf vessels. A preliminary report was called and/or faxed to PCU sack maker. VL/Venous Duplex US, Unilateral Interpretation Summary There is no evidence of right lower extremity deep vein thrombosis. Right great saphenous vein appears patent and compressible segmentally. Normal flow patterns left common f emoral vein This examination was noted to be technically difficult for multiple reasons. Ordering Physician: Bruna Ruiz Referring Physician: Ihsan Cramer Performed By: Sunny Byrd RVT
[2023-08-09 17:18] VITALS: BP 135/58; PULSE 77; RESP 18; TEMP 37; O2SAT 94
--- NOTE | 2023-08-09 18:11 | PCM.RX.CS ---
Consult Antibiotic Management Pharmacy has been consulted to manage selected antiobiotic: Vancomycin Type of Intervention Type of Consult: New start Suspected Infection Suspected Infection: Sepsis and Other Labs Labs: Sodium 134 mmol/L (136-145) L 08/09/23 13:50 Potassium 3.7 mmol/L (3.5-5.1) 08/09/23 13:50 Chloride 99 mmol/L (98-107) 08/09/23 13:50 Carbon Dioxide 32.0 mmol/L (21.0-32.0) 08/09/23 13:50 Anion Gap 3 (5-15) L 08/09/23 13:50 BUN 14 mg/dL (7-18) 08/09/23 13:50 Creatinine 0.87 mg/dL (0.55-1.02) 08/09/23 13:50 Est GFR (MDRD) Af Amer 80 mL/min (>60) 08/09/23 13:50 Est GFR (MDRD) Non-Af 66 mL/min (>60) 08/09/23 13:50 BUN/Creatinine Ratio 16.0 RATIO (10-20) 08/09/23 13:50 Glucose 107 mg/dL (74-106) H 08/09/23 13:50 Microbiology Microbiology: Microbiology 08/09/23 14:20 Nasal Secretion SARS-CoV-2 & FLU Antigen (Rapid) - Final Dosing Weight Weight used for dosin kg Goal Trough Goal Trough: 15-20 mcg/mL Pharmacy Plan for Drug Dosing Pharmacy Plan for Drug Dosing: NEW START IV VANCOMYCIN Consulting Physician: Dr. Ruiz Indication: UTI/Sepsis Goal Trough: 15-20 SrCr: 0.87 CrCl: 55mls/min (using an adjusted body weight of 70kg) Comments: pt received a 2000mg x1 dose of Vancomycin in the ER on 08/09/23 at 1600 Vancomycin Dose: based on patients weight and renal function, recommend an initial dose of 1500mg q24h. Trough prior to the 3rd total dose Pending Level: 08/11/23 at 1530 Pharmacy Service will continue to monitor and adjust dosing as required. Follow-Up Labs Follow-Up Labs: Trough: Vancomycin (08/11/23 at 1530)
[2023-08-09 18:22] LABS: Procalcitonin 0.16 ng/mL (0.00-0.09)
[2023-08-09 19:26] LABS: M R Staph aureus DNA By PCR Negative (Negative); Probe Check PASS; Specimen Processing Control PASS
[2023-08-09 21:43] VITALS: BP 129/48; PULSE 83; RESP 20; TEMP 36.9; O2SAT 97
[2023-08-09] MEDS: MELATONIN 3 MG TABLET PO (21:51)
[2023-08-09] MEDS: Citalopram 10 MG Tablet PO (21:51)
[2023-08-10] VITALS (9 sets, daily range): BP systolic 112–150; BP diastolic 44–71; PULSE 74–92; RESP 18–24; TEMP 36.3–37.7; O2SAT 95–99; BMI 43.1
[2023-08-10] MEDS: Piperacil/Tazobactam 3.375 GM in 0.9% Normal Saline (50mL MB+) 50 ML IV ×3 (05:20→21:46)
[2023-08-10] MEDS: 0.9% Saline Lock 10 ML Syringe IV ×3 (05:27→21:46)
[2023-08-10 06:22] LABS: Absolute Lymphocyte Count 0.88 X10^3/uL (0.83-4.51); Absolute Neutrophil Count 7.7 X10^3/uL (2.0-7.7); Basophil# 0.06 X10^3/uL; Basophil% 0.6 % (0-1); Eosinophil# 0.09 X10^3/uL; Hematocrit 33.5 % (37-47); Hemoglobin 10.7 g/dL (12.0-15.0); Lymphocyte # 0.88 X10^3/ul (0.83-4.51); Lymphocyte % 9.4 % (19-41); Mean Corp Hgb Conc 31.9 g/dL (32-36); Mean Corpuscular Hgb 30.8 pg (27.0-32.0); Mean Corpuscular Volume 96.5 fL (81-99); Mean Platelet Vol. 9.4 fl (6.2-12.0); Monocyte# 0.62 X10^3/uL; Monocyte% 6.6 % (0-10); NRBC Flagged by Analyzer 0 % (0-5); Neutrophil # 7.68 X10^3/uL (2.7-7.7); Neutrophil % 81.5 % (47-70); Platelet Count 344 K/mm3 (150-450); RBC Distribution Width CV 14.2 % (11.6-14.6); RBC Distribution Width SD 49.6 fl (35.1-43.9); Red Blood Count 3.47 M/mm3 (4.2-5.4); White Blood Count 9.4 K/mm3 (4.4-11.0)
[2023-08-10 07:14] LABS: AST(SGOT) 13 U/L (15-37); Alanine Aminotransfer ALT/SGPT 12 U/L (13-56); Albumin, Serum 1.8 g/dL (3.2-5.0); Alkaline Phosphatase 55 U/L (45-117); Anion Gap 5 (5-15); BUN 10 mg/dL (7-18); BUN/Creat Ratio 14.1 RATIO (10-20); Bilirubin, Direct 0.19 mg/dL (0.00-0.30); Calcium,Total 6.8 mg/dL (8.5-10.1); Chloride 103 mmol/L (98-107); Creatinine, Serum 0.71 mg/dL (0.55-1.02); EST Glomerular Filtration Rate 83 mL/min (>60); Est Glom Filt Rate - Afr Amer 101 mL/min (>60); Estimated Creatinine Clearance 32.73 ml/min; Globulin 3.3 g/dL (2.2-4.2); Glucose 100 mg/dL (74-106); Magnesium 1.6 mg/dL (1.6-2.6); Phosphorus 2.8 mg/dL (2.5-4.9); Potassium 3.5 mmol/L (3.5-5.1); Protein, Total 5.1 g/dL (6.4-8.2); Sodium Level 135 mmol/L (136-145); Thyroid Stim Hormone (TSH) 3.26 uIU/mL (0.358-3.74)
[2023-08-10] MEDS: Pantoprazole Sodium 40 MG Tablet PO (08:42)
[2023-08-10] MEDS: Enoxaparin 40 MG/0.4 ML Syringe SC (08:43)
[2023-08-10] MEDS: Propranolol 40 MG Tablet PO (08:43)
[2023-08-10] MEDS: Aspirin 81 MG TAB.CHEW PO (08:43)
--- NOTE | 2023-08-10 09:38 | PN.HOSP_ITS ---
Reason for Visit Reason for Visit: Diagnoses Weakness (08/09/23) Subjective Subjective Pt awake and watching TV when I came in the room, initially answered questions but when discussing suicidality pt began to fall asleep and would not answer questions further. Pt thinks her breathing is the same or possibly slightly better Objective Data Objective Data Vital Signs: Vital Signs Temp Pulse Resp BP Pulse Ox O2 Del Method O2 Flow Rate 97.7 F L 83 18 139/49 H 95 Nasal Cannula 3 08/10/23 08:00 08/10/23 08:00 08/10/23 08:00 08/10/23 08:00 08/10/23 08:00 08/10/23 08:00 08/10/23 08:00 Oxygen Flow Rate (L/min) 3 Oxygen Delivery Method Nasal Cannula Weight: 103.5 kg Body Mass Index (BMI) 43.1 Intake & Output: Intake and Output for Last 24 Hours 08/09/23 08/09/23 08/10/23 00:59 23:59 23:59 Intake Total 420 / 420 Output Total 200 / 200 Balance 220 / 220 Lab / Micro Data 08/10/23 05:45 08/10/23 05:45 Labs: Laboratory Results - last 24 hr 08/09/23 13:30: Lactic Acid 1.1 08/09/23 13:50: WBC 12.0 H, RBC 3.99 L, Hgb 12.1, Hct 39.3, MCV 98.5, MCH 30.3, MCHC 30.8 L, RDW Std Deviation 51.1 H, RDW Coeff of Lee 14.1, Plt Count 395, MPV 9.4, Immature Gran % (Auto) 0.800, Neut % (Auto) 79.4 H, Lymph % (Auto) 12.0 L, [place] % (Auto) 6.3, Eos % (Auto) 0.8, Baso % (Auto) 0.7, Absolute Neuts (auto) 9.6 H, Absolute Lymphs (auto) 1.44, Nucleated RBC % 0, PT 15.3 H, INR 1.2, Sodium 134 L, Potassium 3.7, Chloride 99, Carbon Dioxide 32.0, Anion Gap 3 L, BUN 14, Creatinine 0.87, Estim Creat Clear Calc 37.62, Est GFR (MDRD) Af Amer 80, Est GFR (MDRD) Non-Af 66, BUN/Creatinine Ratio 16.0, Glucose 107 H, Calcium 8.0 L, Troponin I High Sens 7, B-Natriuretic Peptide 167.8 H 08/09/23 14:45: Urine Color Ly, Urine Clarity Clear, Urine pH 5.0, Ur Specific [place] 1.020, Urine Protein 30 H, Urine Glucose (UA) Normal, Urine Ketones 5 H, Urine Occult Blood 10 H, Urine Nitrite Positive H, Urine Bilirubin 1 H, Urine Urobilinogen 1 H, Ur Leukocyte Esterase 100 H, Urine RBC 0-5 SEEN, Urine WBC 5-10 SEEN, Ur Squamous Epith Cells 0-5 SEEN, Amorphous Sediment 1+ URATE, Urine Bacteria RARE, Urine Mucus 0 SEEN 08/09/23 16:15: Troponin I High Sens 7 08/09/23 17:36: Procalcitonin 0.16 H 08/09/23 17:45: MRSA (PCR) Negative 08/10/23 05:45: WBC 9.4, RBC 3.47 L, Hgb 10.7 L, Hct 33.5 L, MCV 96.5, MCH 30.8, MCHC 31.9 L, RDW Std Deviation 49.6 H, RDW Coeff of Lee 14.2, Plt Count 344, MPV 9.4, Immature Gran % (Auto) 0.900, Neut % (Auto) 81.5 H, Lymph % (Auto) 9.4 L, [place] % (Auto) 6.6, Eos % (Auto) 1.0, Baso % (Auto) 0.6, Absolute Neuts (auto) 7.7, Absolute Lymphs (auto) 0.88, Nucleated RBC % 0, Sodium 135 L, Potassium 3.5, Chloride 103, Carbon Dioxide 27.0, Anion Gap 5, BUN 10, Creatinine 0.71, Estim Creat Clear Calc 32.73, Est GFR (MDRD) Af Amer 101, Est GFR (MDRD) Non-Af 83, BUN/Creatinine Ratio 14.1, Glucose 100, Calcium 6.8 L, Phosphorus 2.8, Magnesium 1.6, Total Bilirubin 0.50, Direct Bilirubin 0.19, AST 13 L, ALT 12 L, Alkaline Phosphatase 55, Total Protein 5.1 L, Albumin 1.8 L, Globulin 3.3, TSH 3.26 Micro: Microbiology 08/09/23 20:02 Mucosa - Nasopharyngeal Respiratory Panel (PCR) - Final 08/09/23 14:20 Nasal Secretion SARS-CoV-2 & FLU Antigen (Rapid) - Final Radiography Diagnostic Testing: Radiology Impression Chest X-Ray 08/09/23 14:02 IMPRESSION: Left lung infiltrate suggesting pneumonia is worse. This may be a combination of pulmonary fibrosis and pneumonia. Electronically Signed: Samuel Mckee MD at 14:49 EST Reading Location ID and State: [facility] / [place] , Service support , Physical Exam Narrative General: Alert, patient with restricted affect, only answers some questions HEENT: Atraumatic, normocephalic Eyes: Anicteric, normal conjunctiva, extraocular movements grossly intact Neck: Supple Respiratory: Diminished bilaterally Cardiovascular: Regular rate GI: Soft, tenderness improving, nondistended Extremities: slight LE edema 1+ Musculoskeletal: Moving all extremities Neuro: No overt focal neurological deficits Skin: RLE erythema improving Psych: Evasive, not forthcoming Assessment & Plan Assessment/Plan (1) Weakness: PLAN: Plan #Generalized weakness/fall/slightly confused -Likely secondary to underlying infection with slight bump in white count with left shift as well as multiple possible etiologies though unclear if it is pneumonia, UTI, or right lower extremity cellulitis as patient has very difficult time giving symptomatology and continues to repeat she just feels generally weak and unwell -No cough so less likely pneumonia but with continued diarrhea will check respiratory panel, COVID-negative, advised patient begins to bring up sputum we can get culture -UA could be suggestive of UTI, urine culture ordered -Monitor erythema of right lower extremity -We will broaden antibiotic spectrum given she is already on Cipro and Flagyl as it may be resistant to fluoroquinolones, MRSA swab so can de-escalate vancomycin if negative -Ciprofloxacin can also worsen confusion in the elderly, given likely UTI despite antibiotics will change from quinolone anyway while awaiting cultures -Given diarrhea, confusion, generalized weakness we will check TSH and B12 as well as liver function -PT/OT -CM/SW consult -08/10: Suspect patient will need placement, continue to follow cultures, continue antibiotics #Hypoxia and respiratory alkalosis -Discussed with patient's nurse patient taken off of O2 earlier and went to 87- 89% on room air and had cannula replaced -Has some crackles but primarily on left side, on antibiotics, with lack of cough unclear if there is pneumonia but there is infiltrate -ABG obtained and pH have actually 7.6 with good PO2 on nasal cannula and PCO2 of only 26.9. Could have bronchospasm or have component of overload or anxiety, will give nebs, is up in weight from several days ago so trial dose of Lasix. -recheck abg in AM or sooner if change in mental or respiratory status #Suicidal ideation -08/10: Voiced yesterday during her intake, on suicide precautions, will need crisis eval #RLE erythema -And daughter reports she thinks it is more swollen compared to left, both legs seem to be about the same amount of swelling but does have some increased erythema on right lower extremity -We will check vascular duplex just to verify no thrombus or confounding factor -Broad-spectrum antibiotics -BNP slightly elevated but similar to previous and do not think patient is acutely overloaded at this time but can always consider echocardiogram if any worsening respiratory status or increase swelling, daily weights, I's and O's -08/10: Erythema improving #Recent pancolitis -C. difficile and enteric panel has been negative -On Cipro and Flagyl, ciprofloxacin can cause confusion in elderly, will switch antibiotics to Zosyn -Will need outpatient GI follow-up #Tremors -Chronic -On d/c summ pt was on 40 of propranolol, this is what was continued here #Hypertension -Continue present medications #DVT ppx: Lovenox subcu Bruna Ruiz MD Time spent in the patient's overall evaluation,decision-making process, review of diagnostic data, adjustment of management, discussion with other providers, nursing nursing and ancillary staff involved in patient's care documentation, 35 minutes Charges/Coding Visit Charges Inpatient E&M: 92383 Subs Hosp L2
[2023-08-10 09:45] LABS: Vitamin B12 869 pg/mL (211-911)
--- NOTE | 2023-08-10 10:36 | CASEMGMT ---
JOSE ELIAS JOHNSON Note: Pt is from [facility] and was discharged back to [place] on 08/03 w/[facility]. Call to [facility] and spoke w/Yelena/ADAN. She is aware pt has been admitted to [facility]. Kathleen BUENON JOSE ELIAS CM
[2023-08-10] MEDS: Calcium Gluconate IV 2 GM in 0.9% Normal Saline (100mL Bag) 100 ML IV (11:05)
--- NOTE | 2023-08-10 11:52 | CASEMGMT ---
Social work SW called step daughter June to discuss discharge plan. As per June, pt has been at [facility] since end of June. She does not think pt can return. We discussed pt going to a long-term, daughter in agreement with this. Also, June is pt's only family, she has updated POA papers and will bring them in. SW explained will leave a list of alf facilities in room, asked her to follow up w/d/c Web Interface Developer Aure with choices. List from [facility] of alf facilities in network w/pt's insurance, in pt's preferred geographic area and complete w/quality and resource use data left in room. As per physician, pt will need assessed by crisis first once medically cleared. If psych placement not needed, we will then work on SNF placement. JOHN Dorantes
[2023-08-10 14:37] LABS: Allen Test Positive; Base Excess 5 mmol/L (-2 to +2); Bicarbonate 26.1 mmol/L (22-26); Blood Gas Specimen Type ART; Mode Not entered; O2 Delivery Device Cannula; PO2 121 mmHG (75-100); SITE L Radial; SO2 99 % (95-99); Total Carbon Dioxide 27 mmol/L; pCO2 26.9 mmHg (35-45)
[2023-08-10] MEDS: Vancomycin HCl 1,500 MG in 0.9% Normal Saline (500mL Bag) 500 ML 250 MG IV (15:37)
--- NOTE | 2023-08-10 15:52 | CPS ---
Unable to verify critical value times two.Not enough blood to retest. Informed PCU software quality manager. Forwarded results to DR. Ruiz.
[2023-08-10] MEDS: Furosemide 20 MG/2 ML VIAL IV (18:11)
[2023-08-10] MEDS: Ipratropium/Albuterol Sulfate 3 ML AMPUL.NEB INHALATION (19:41)
[2023-08-10] MEDS: MELATONIN 3 MG TABLET PO (21:46)
[2023-08-10] MEDS: Citalopram 10 MG Tablet PO (21:46)
[2023-08-10] MEDS: Acetaminophen 325 MG Tablet 650 MG PO (22:09)
[2023-08-11] VITALS (8 sets, daily range): BP systolic 103–144; BP diastolic 44–65; PULSE 68–81; RESP 16–20; TEMP 36.3–37.2; O2SAT 97–98; BMI 43.3
[2023-08-11 05:30] LABS: Allen Test Positive; Base Excess 5 mmol/L (-2 to +2); Bicarbonate 29.1 mmol/L (22-26); Blood Gas Specimen Type ART; Mode Not entered; O2 Delivery Device Cannula; PO2 99 mmHG (75-100); SITE R Radial; SO2 98 % (95-99); Total Carbon Dioxide 30 mmol/L; pCO2 43.9 mmHg (35-45); pH 7.43 (7.35-7.45)
[2023-08-11] MEDS: Piperacil/Tazobactam 3.375 GM in 0.9% Normal Saline (50mL MB+) 50 ML IV ×3 (06:02→22:03)
[2023-08-11] MEDS: 0.9% Saline Lock 10 ML Syringe IV ×4 (06:03→22:01)
[2023-08-11 06:07] LABS: Absolute Lymphocyte Count 0.88 X10^3/uL (0.83-4.51); Absolute Neutrophil Count 6.6 X10^3/uL (2.0-7.7); Basophil# 0.07 X10^3/uL; Basophil% 0.9 % (0-1); Eosinophil# 0.15 X10^3/uL; Eosinophils% 1.8 % (0-5); Hematocrit 36.3 % (37-47); Hemoglobin 11.3 g/dL (12.0-15.0); Lymphocyte # 0.88 X10^3/ul (0.83-4.51); Lymphocyte % 10.7 % (19-41); Mean Corp Hgb Conc 31.1 g/dL (32-36); Mean Corpuscular Hgb 30.5 pg (27.0-32.0); Mean Corpuscular Volume 97.8 fL (81-99); Mean Platelet Vol. 9.4 fl (6.2-12.0); Monocyte% 6.1 % (0-10); NRBC Flagged by Analyzer 0 % (0-5); Neutrophil # 6.56 X10^3/uL (2.7-7.7); Neutrophil % 79.6 % (47-70); Platelet Count 349 K/mm3 (150-450); RBC Distribution Width SD 50.7 fl (35.1-43.9); Red Blood Count 3.71 M/mm3 (4.2-5.4); White Blood Count 8.2 K/mm3 (4.4-11.0)
[2023-08-11 07:18] LABS: Anion Gap 5 (5-15); BUN 9 mg/dL (7-18); Calcium,Total 7.9 mg/dL (8.5-10.1); Chloride 102 mmol/L (98-107); Creatinine, Serum 0.69 mg/dL (0.55-1.02); EST Glomerular Filtration Rate 86 mL/min (>60); Est Glom Filt Rate - Afr Amer 104 mL/min (>60); Estimated Creatinine Clearance 32.73 ml/min; Glucose 95 mg/dL (74-106); Potassium 3.3 mmol/L (3.5-5.1); Sodium Level 137 mmol/L (136-145)
[2023-08-11] MEDS: Ipratropium/Albuterol Sulfate 3 ML AMPUL.NEB INHALATION ×2 (07:20→19:42)
[2023-08-11] MEDS: Potassium Chloride Oral Tablet 20 MEQ 40 MEQ PO (09:36)
[2023-08-11] MEDS: Aspirin 81 MG TAB.CHEW PO (09:36)
[2023-08-11] MEDS: Enoxaparin 40 MG/0.4 ML Syringe SC (09:37)
[2023-08-11] MEDS: Propranolol 40 MG Tablet PO (09:37)
[2023-08-11] MEDS: Pantoprazole Sodium 40 MG Tablet PO (09:37)
[2023-08-11] MEDS: Ondansetron 4 MG/2 ML Vial IV (11:04)
[2023-08-11] MEDS: Acetaminophen 325 MG Tablet 650 MG PO ×2 (11:18→18:16)
--- NOTE | 2023-08-11 12:29 | CASEMGMT ---
Addendum entered by Maribel Robin 08/11/23 12:36: Social Work SW reached out to [facility] with potential referral, they are declining at this time. SW will continue to follow. JOHN Dorantes Original Note: Social Work SW spoke w/pt, pt's daughters June and Anjelica in the room as well. We discussed the plan. All aware that pt needs assessed for crisis first. If pt is cleared by crisis, she will need SNF. SW informed pt and family that the pt will likely be assessed tomorrow by crisis. Family and pt's choices for SNF are 1. [facility] 2. [facility] 3. [facility] SW explained we will make the referrals if pt is cleared by crisis. JOHN Dorantes
--- NOTE | 2023-08-11 14:30 | PN.HOSP_ITS ---
Reason for Visit Reason for Visit: Diagnoses Weakness (08/09/23) Subjective Subjective Patient feeling nauseous this morning and this improved with Zofran. Was not feeling nauseated before that. Has only had 2's very small smear bowel movements and has hypoactive bowel sounds. Feels she is urinating okay. His breathing may be better than yesterday Objective Data Objective Data Vital Signs: Vital Signs Temp Pulse Resp BP Pulse Ox O2 Del Method O2 Flow Rate 97.4 F L 80 20 H 144/57 H 97 Nasal Cannula 2 08/11/23 13:56 08/11/23 13:56 08/11/23 13:56 08/11/23 13:56 08/11/23 13:56 08/11/23 13:56 08/11/23 13:56 Oxygen Flow Rate (L/min) 2 Oxygen Delivery Method Nasal Cannula Weight: 104 kg Body Mass Index (BMI) 43.3 Intake & Output: Intake and Output for Last 24 Hours 08/09/23 08/10/23 08/11/23 23:59 23:59 23:59 Intake Total 1410 / 1530 460 / 460 Output Total 400 / 650 750 / 750 Balance 1010 / 880 -290 / -290 Lab / Micro Data 08/11/23 05:28 08/11/23 05:28 Labs: Laboratory Results - last 24 hr 08/11/23 05:28: WBC 8.2, RBC 3.71 L, Hgb 11.3 L, Hct 36.3 L, MCV 97.8, MCH 30.5, MCHC 31.1 L, RDW Std Deviation 50.7 H, RDW Coeff of Lee 14.0, Plt Count 349, MPV 9.4, Immature Gran % (Auto) 0.900, Neut % (Auto) 79.6 H, Lymph % (Auto) 10.7 L, Cottle % (Auto) 6.1, Eos % (Auto) 1.8, Baso % (Auto) 0.9, Absolute Neuts (auto) 6.6, Absolute Lymphs (auto) 0.88, Nucleated RBC % 0, Sodium 137, Potassium 3.3 L , Chloride 102, Carbon Dioxide 30.0, Anion Gap 5, BUN 9, Creatinine 0.69, Estim Creat Clear Calc 32.73, Est GFR (MDRD) Af Amer 104, Est GFR (MDRD) Non-Af 86, BUN/Creatinine Ratio 13.0, Glucose 95, Calcium 7.9 L Micro: Microbiology 08/09/23 13:30 Blood Culture (Wb) - Venous Blood Culture - Preliminary No growth in 48 hours. 08/09/23 15:23 Blood Culture (Wb) - Anticubital Left Blood Culture - Preliminary No growth in 48 hours. 08/09/23 14:45 Urine, Clean Catch Urine Culture - Final Culture exhibits no growth. 08/09/23 20:02 Mucosa - Nasopharyngeal Respiratory Panel (PCR) - Final 08/09/23 14:20 Nasal Secretion SARS-CoV-2 & FLU Antigen (Rapid) - Final ABG Data ABG results: ABG 08/10/23 08/11/23 15:33 05:26 Specimen Type ART ART Sample Site L Radial R Radial pH 7.60 H* 7.43 Bicarbonate Actual 26.1 H 29.1 H Total CO2 27 30 Base Excess 5 H 5 H O2 Saturation 99 98 O2 % 2.0 2.0 ABG pCO2 26.9 L 43.9 ABG pO2 121 H 99 Cesar Test Positive Positive O2 Delivery Device Cannula Cannula Vent Mode Not entered Not entered Crit Call To/Read Back Yes Physical Exam Narrative General: Alert, patient with restricted affect, is somewhat more conversational and interactive today HEENT: Atraumatic, normocephalic Eyes: Anicteric, normal conjunctiva, extraocular movements grossly intact Neck: Supple Respiratory: Crackles at bases bilaterally Cardiovascular: Regular rate GI: Soft, tenderness improving, nondistended Extremities: LE edema 1+ Musculoskeletal: Moving all extremities Neuro: No overt focal neurological deficits Skin: RLE erythema resolved Psych: More cooperative today Assessment & Plan Assessment/Plan (1) Weakness: PLAN: Plan #Generalized weakness/fall/slightly confused -Likely secondary to underlying infection with slight bump in white count with left shift as well as multiple possible etiologies though unclear if it is pneumonia, UTI, or right lower extremity cellulitis as patient has very difficult time giving symptomatology and continues to repeat she just feels generally weak and unwell -No cough so less likely pneumonia but with continued diarrhea will check respiratory panel, COVID-negative, advised patient begins to bring up sputum we can get culture -UA could be suggestive of UTI, urine culture ordered -Monitor erythema of right lower extremity -We will broaden antibiotic spectrum given she is already on Cipro and Flagyl as it may be resistant to fluoroquinolones, MRSA swab so can de-escalate vancomycin if negative -Ciprofloxacin can also worsen confusion in the elderly, given likely UTI de spite antibiotics will change from quinolone anyway while awaiting cultures -Given diarrhea, confusion, generalized weakness we will check TSH and B12 as well as liver function -PT/OT -CM/SW consult -08/10: Suspect patient will need placement, continue to follow cultures, continue antibiotics -08/11: Patient was more alert today and was answering questions appropriately. PT/OT ordered, still suspect patient will need placed #Hypoxia and respiratory alkalosis -Discussed with patient's nurse patient taken off of O2 earlier and went to 87- 89% on room air and had cannula replaced -Has some crackles but primarily on left side, on antibiotics, with lack of cough unclear if there is pneumonia but there is infiltrate -ABG obtained and pH have actually 7.6 with good PO2 on nasal cannula and PCO2 of only 26.9. Could have bronchospasm or have component of overload or anxiety, will give nebs, is up in weight from several days ago so trial dose of Lasix. -recheck abg in AM or sooner if change in mental or respiratory status -08/11: Respiratory status improved with Lasix yesterday, does have some crackles at the bases today with bilateral lower extremity swelling, will give another dose of Lasix and will also check echocardiogram as we do not have the history of heart failure or abnormality in her system but patient does seem overloaded #Suicidal ideation -08/10: Voiced yesterday during her intake, on suicide precautions, will need crisis eval -08/11: Will likely be medically ready to be evaluated by crisis tomorrow #RLE erythema -And daughter reports she thinks it is more swollen compared to left, both legs seem to be about the same amount of swelling but does have some increased erythema on right lower extremity -We will check vascular duplex just to verify no thrombus or confounding factor -Broad-spectrum antibiotics -BNP slightly elevated but similar to previous and do not think patient is acutely overloaded at this time but can always consider echocardiogram if any worsening respiratory status or increase swelling, daily weights, I's and O's -08/10: Erythema improving -08/11: Resolved with antibiotics, MRSA swab negative so vancomycin DC'd, still on Zosyn given we are still covering for her colitis but suspect her cellulitis and fluid overload was the reason for her presentation as other cultures have been negative but right leg did look cellulitic on presentation #Recent pancolitis -C. difficile and enteric panel has been negative -On Cipro and Flagyl, ciprofloxacin can cause confusion in elderly, will switch antibiotics to Zosyn -Will need outpatient GI follow-up -08/11: Continue Zosyn #Tremors -Chronic -On d/c summ pt was on 40 of propranolol, this is what was continued here #Hypertension -Continue present medications #DVT ppx: Lovenox subcu Bruna Ruiz MD Time spent in the patient's overall evaluation,decision-making process, review of diagnostic data, adjustment of management, discussion with other providers, nursing nursing and ancillary staff involved in patient's care documentation, 35 minutes Charges/Coding Visit Charges Inpatient E&M: 59493 Subs Hosp L2
--- NOTE | 2023-08-11 15:16 | ECHOCS_ITS ---
Reason For Study: DYSPNEA/SOB Procedure This was a 2D Doppler, Color Flow transthoracic echocardiogram. The study was technically difficult. Unable to reposition patient due to obesity/weakness. Contrast injection was performed. Exam performed portable in patient room. Left Ventricle Normal LV size. The estimated ejection fraction is 60 %. Diastolic function is indeterminate. No regional wall motion abnormalities noted. Right Ventricle Normal RV size. Normal systolic function. Atria Normal left atrium. Normal right atrium. No doppler evidence for ASD. Mitral Valve There is no mitral valve stenosis. No mitral valve insufficiency. Tricuspid Valve There is no tricuspid stenosis. Mild tricuspid valve insufficiency. Pulmonary artery systolic pressure is 50 mmHg. Aortic Valve Trisinus/trileaflet aortic valve. There is no aortic stenosis. No aortic valve insufficiency. Pulmonic Valve There is no pulmonic valvular stenosis. No pulmonic valve insufficiency. Great Vessels Normal aortic root. Pericardium/Pleural No pericardial effusion. Medication Diluted definity 2.0ml given slow IV push to enhance endocardial definition. MMode/2D Measurements & Calculations LVIDd: 4.3 cm IVSd: 0.92 cm Ao root diam: 2.9 cm LVIDs: 2.6 cm LVPWd: 0.84 cm RVDd: 3.2 cm FS: 38.3 % LAV(MOD-sp4): 65.5 ml LVAd ap4: 31.6 cm2 LVAd ap2: 18.7 cm2 LVLd ap4: 8.1 cm LVLd ap2: 7.2 cm EDV(MOD-sp4): 101.7 ml EDV(MOD-sp2): 42.0 ml EDV(sp4-el): 104.1 ml EDV(sp2-el): 41.4 ml LVAs ap4: 18.4 cm2 LVAs ap2: 11.1 cm2 LVLs ap4: 6.7 cm LVLs ap2: 6.0 cm ESV(MOD-sp4): 41.5 ml ESV(MOD-sp2): 17.0 ml ESV(sp4-el): 42.7 ml ESV(sp2-el): 17.5 ml EF(MOD-sp4): 59.2 % EF(MOD-sp2): 59.6 % EF(sp4-el): 59.0 % SV(MOD-sp4): 60.2 ml SV(MOD-sp2): 25.0 ml SV(sp4-el): 61.4 ml LA A4 area: 21.7 cm2 RA A4 area: 15.9 cm2 TAPSE: 2.1 cm Time Measurements MV dec time: 0.27 sec Doppler Measurements & Calculations MV E max tarun: 79.5 cm/sec Lat Peak E' Tarun: 6.2 cm/sec Med Peak E' Tarun: 7.4 cm/sec MV A max tarun: 88.5 cm/sec E/E' lat: 12.9 E/E' med: 10.7 MV E/A: 0.90 MV V2 max: 111.3 cm/sec MV P1/2t max tarun: 104.4 cm/sec Ao V2 max: 135.6 cm/sec MV max P.0 mmHg MV P1/2t: 89.0 msec Ao max P.4 mmHg MV V2 mean: 50.5 cm/sec Ao V2 mean: 95.7 cm/sec MV mean P.3 mmHg MV dec slope: 343.9 cm/sec2 Ao mean P.0 mmHg MV V2 VTI: 28.3 cm MVA(P1/2t): 2.5 cm2 Ao V2 VTI: 28.8 cm AV (velocity ratio): 0.72 LV V1 max: 97.1 cm/sec PA V2 max: 78.4 cm/sec TR max tarun: 320.8 cm/sec LV V1 max P.8 mmHg PA V2 mean: 60.9 cm/sec TR max P.2 mmHg LV V1 mean P.6 mmHg LV V1 mean: 58.1 cm/sec LV V1 VTI: 20.8 cm ECHO/Echo Complete W/ Contrast Interpretation Summary The estimated ejection fraction is 60 %. Diastolic function is indeterminate. Ordering Physician: Bruna Ruiz Referring Physician: Ihsan Cramer Performed By: Mary Ramon, RDCS, RVT
[2023-08-11 15:59] LABS: Vancomycin, Trough Level 9.7 ug/mL (5.0-15.0)
[2023-08-11] MEDS: Polyethylene Glycol 3350 17 GM PACKET PO (16:03)
[2023-08-11] MEDS: Furosemide 20 MG/2 ML VIAL IV (16:04)
[2023-08-11] MEDS: MELATONIN 3 MG TABLET PO (21:58)
[2023-08-11] MEDS: Citalopram 10 MG Tablet PO (21:58)
[2023-08-12] VITALS (8 sets, daily range): BP systolic 115–135; BP diastolic 45–51; PULSE 70–75; RESP 16–18; TEMP 36.8–37; O2SAT 94–100; BMI 43.8
[2023-08-12] MEDS: Acetaminophen 325 MG Tablet 650 MG PO ×2 (01:26→20:10)
[2023-08-12 04:35] LABS: Absolute Lymphocyte Count 1.36 X10^3/uL (0.83-4.51); Absolute Neutrophil Count 5.3 X10^3/uL (2.0-7.7); Basophil# 0.06 X10^3/uL; Basophil% 0.8 % (0-1); Eosinophil# 0.19 X10^3/uL; Eosinophils% 2.5 % (0-5); Hematocrit 32.6 % (37-47); Hemoglobin 10.3 g/dL (12.0-15.0); Lymphocyte # 1.36 X10^3/ul (0.83-4.51); Lymphocyte % 17.9 % (19-41); Mean Corp Hgb Conc 31.6 g/dL (32-36); Mean Corpuscular Volume 98.2 fL (81-99); Mean Platelet Vol. 9.3 fl (6.2-12.0); Monocyte# 0.65 X10^3/uL; Monocyte% 8.6 % (0-10); NRBC Flagged by Analyzer 0 % (0-5); Neutrophil % 69.7 % (47-70); Platelet Count 319 K/mm3 (150-450); RBC Distribution Width CV 13.9 % (11.6-14.6); RBC Distribution Width SD 49.6 fl (35.1-43.9); Red Blood Count 3.32 M/mm3 (4.2-5.4); White Blood Count 7.6 K/mm3 (4.4-11.0)
[2023-08-12 04:55] LABS: Anion Gap 4 (5-15); BUN 11 mg/dL (7-18); Calcium,Total 7.5 mg/dL (8.5-10.1); Chloride 102 mmol/L (98-107); Creatinine, Serum 0.78 mg/dL (0.55-1.02); EST Glomerular Filtration Rate 75 mL/min (>60); Est Glom Filt Rate - Afr Amer 90 mL/min (>60); Estimated Creatinine Clearance 32.73 ml/min; Glucose 94 mg/dL (74-106); Potassium 3.5 mmol/L (3.5-5.1); Sodium Level 136 mmol/L (136-145)
[2023-08-12] MEDS: Piperacil/Tazobactam 3.375 GM in 0.9% Normal Saline (50mL MB+) 50 ML IV ×3 (05:04→22:05)
[2023-08-12] MEDS: Ipratropium/Albuterol Sulfate 3 ML AMPUL.NEB INHALATION ×2 (07:05→19:35)
[2023-08-12] MEDS: Aspirin 81 MG TAB.CHEW PO (08:07)
[2023-08-12] MEDS: Polyethylene Glycol 3350 17 GM PACKET PO (10:22)
[2023-08-12] MEDS: Propranolol 40 MG Tablet PO (10:24)
[2023-08-12] MEDS: Pantoprazole Sodium 40 MG Tablet PO (10:24)
[2023-08-12] MEDS: Enoxaparin 40 MG/0.4 ML Syringe SC (10:32)
[2023-08-12] MEDS: Furosemide 40 MG Tablet PO (10:35)
--- NOTE | 2023-08-12 15:42 | PN.HOSP_ITS ---
Reason for Visit Reason for Visit: Diagnoses Weakness (08/09/23) Subjective Subjective Patient feeling little bit better today, had a bowel movement and has not been feeling nauseous or having as much abdominal pain, breathing roughly the same if not better, still little bit no peripheral swelling but overall doing better Objective Data Objective Data Vital Signs: Vital Signs Temp Pulse Resp BP Pulse Ox O2 Del Method O2 Flow Rate 98.5 F 71 16 122/50 H 96 Nasal Cannula 2 08/12/23 09:05 08/12/23 09:05 08/12/23 09:05 08/12/23 09:05 08/12/23 09:30 08/12/23 14:06 08/12/23 14:06 Oxygen Flow Rate (L/min) 2 Oxygen Delivery Method Nasal Cannula Weight: 105.3 kg Body Mass Index (BMI) 43.8 Intake & Output: Intake and Output for Last 24 Hours 08/10/23 08/11/23 08/12/23 23:59 23:59 23:59 Intake Total 1410 / 1530 970 / 970 100 / 100 Output Total 400 / 650 900 / 900 Balance 1010 / 880 70 / 70 100 / 100 Lab / Micro Data 08/12/23 04:16 08/12/23 04:16 Labs: Laboratory Results - last 24 hr 08/11/23 15:16: Vancomycin Trough 9.7 08/12/23 04:16: WBC 7.6, RBC 3.32 L, Hgb 10.3 L, Hct 32.6 L, MCV 98.2, MCH 31.0, MCHC 31.6 L, RDW Std Deviation 49.6 H, RDW Coeff of Lee 13.9, Plt Count 319, MPV 9.3, Immature Gran % (Auto) 0.500, Neut % (Auto) 69.7, Lymph % (Auto) 17.9 L, Letcher % (Auto) 8.6, Eos % (Auto) 2.5, Baso % (Auto) 0.8, Absolute Neuts (auto) 5.3, Absolute Lymphs (auto) 1.36, Nucleated RBC % 0, Sodium 136, Potassium 3.5, Chloride 102, Carbon Dioxide 30.0, Anion Gap 4 L, BUN 11, Creatinine 0.78, Estim Creat Clear Calc 32.73, Est GFR (MDRD) Af Amer 90, Est GFR (MDRD) Non-Af 75, BUN/Creatinine Ratio 14.0, Glucose 94, Calcium 7.5 L Micro: Microbiology 08/09/23 13:30 Blood Culture (Wb) - Venous Blood Culture - Preliminary No growth in 48 hours. 08/09/23 15:23 Blood Culture (Wb) - Anticubital Left Blood Culture - Preliminary No growth in 48 hours. 08/09/23 14:45 Urine, Clean Catch Urine Culture - Final Culture exhibits no growth. 08/09/23 20:02 Mucosa - Nasopharyngeal Respiratory Panel (PCR) - Final 08/09/23 14:20 Nasal Secretion SARS-CoV-2 & FLU Antigen (Rapid) - Final Radiography Diagnostic Testing: Radiology Impression Echocardiogram 08/11/23 15:16 Interpretation Summary The estimated ejection fraction is 60 %. Diastolic function is indeterminate. Ordering Physician: Bruna Ruiz Referring Physician: Ihsan Cramer Performed By: Mary Ramon, VIJI, RVT Physical Exam Narrative General: Alert, slightly more interactive again HEENT: Atraumatic, normocephalic Eyes: Anicteric, normal conjunctiva, extraocular movements grossly intact Neck: Supple Respiratory: Crackles at bases bilaterally, aeration somewhat improved Cardiovascular: Regular rate GI: Soft, was nontender today, nondistended Extremities: LE edema 1+ Musculoskeletal: Moving all extremities Neuro: No overt focal neurological deficits Skin: RLE erythema resolved Psych: Fairly cooperative today Assessment & Plan Assessment/Plan (1) Weakness: PLAN: Plan #Generalized weakness/fall/slightly confused -Likely secondary to underlying infection with slight bump in white count with left shift as well as multiple possible etiologies though unclear if it is pneumonia, UTI, or right lower extremity cellulitis as patient has very difficult time giving symptomatology and continues to repeat she just feels generally weak and unwell -No cough so less likely pneumonia but with continued diarrhea will check respiratory panel, COVID-negative, advised patient begins to bring up sputum we can get culture -UA could be suggestive of UTI, urine culture ordered -Monitor erythema of right lower extremity -We will broaden antibiotic spectrum given she is already on Cipro and Flagyl as it may be resistant to fluoroquinolones, MRSA swab so can de-escalate vancomycin if negative -Ciprofloxacin can also worsen confusion in the elderly, given likely UTI despite antibiotics will change from quinolone anyway while awaiting cultures -Given diarrhea, confusion, generalized weakness we will check TSH and B12 as well as liver function -PT/OT -CM/SW consult -08/10: Suspect patient will need placement, continue to follow cultures, continue antibiotics -08/11: Patient was more alert today and was answering questions appropriately. PT/OT ordered, still suspect patient will need placed -08/12: Continues to improve, patient to be seen by social work, if there are further mental health concerns crisis will evaluate however if not will begin looking for placement. Awaiting eval #Hypoxia and respiratory alkalosis -Discussed with patient's nurse patient taken off of O2 earlier and went to 87- 89% on room air and had cannula replaced -Has some crackles but primarily on left side, on antibiotics, with lack of cough unclear if there is pneumonia but there is infiltrate -ABG obtained and pH have actually 7.6 with good PO2 on nasal cannula and PCO2 of only 26.9. Could have bronchospasm or have component of overload or anxiety, will give nebs, is up in weight from several days ago so trial dose of Lasix. -recheck abg in AM or sooner if change in mental or respiratory status -08/11: Respiratory status improved with Lasix yesterday, does have some crackles at the bases today with bilateral lower extremity swelling, will give another dose of Lasix and will also check echocardiogram as we do not have the history of heart failure or abnormality in her system but patient does seem over loaded -08/12: Echocardiogram with indeterminate diastolic function, do suspect there is likely an aspect of diastolic dysfunction, continue 40 Lasix daily #Suicidal ideation -08/10: Voiced yesterday during her intake, on suicide precautions, will need crisis eval -08/11: Will likely be medically ready to be evaluated by crisis tomorrow -08/12: As above #RLE erythema -And daughter reports she thinks it is more swollen compared to left, both legs seem to be about the same amount of swelling but does have some increased erythema on right lower extremity -We will check vascular duplex just to verify no thrombus or confounding factor -Broad-spectrum antibiotics -BNP slightly elevated but similar to previous and do not think patient is acutely overloaded at this time but can always consider echocardiogram if any worsening respiratory status or increase swelling, daily weights, I's and O's -08/10: Erythema improving -08/11: Resolved with antibiotics, MRSA swab negative so vancomycin DC'd, still on Zosyn given we are still covering for her colitis but suspect her cellulitis and fluid overload was the reason for her presentation as other cultures have been negative but right leg did look cellulitic on presentation -08/12: Continue present management #Recent pancolitis -C. difficile and enteric panel has been negative -On Cipro and Flagyl, ciprofloxacin can cause confusion in elderly, will switch antibiotics to Zosyn -Will need outpatient GI follow-up -08/11: Continue Zosyn -08/12: Continues to improve #Tremors -Chronic -On d/c summ pt was on 40 of propranolol, this is what was continued here #Hypertension -Continue present medications #DVT ppx: Lovenox subcu Bruna Ruiz MD Time spent in the patient's overall evaluation,decision-making process, review of diagnostic data, adjustment of management, discussion with other providers, nursing nursing and ancillary staff involved in patient's care documentation, 40 minutes Charges/Coding Visit Charges Inpatient E&M: 42728 Subs Hosp L2
--- NOTE | 2023-08-12 16:13 | CASEMGMT ---
Discharge Planning Referral sent to [facility] via [facility]. Aure Felton, Discharge Planning Asst.
--- NOTE | 2023-08-12 16:15 | CASEMGMT ---
Social Work - Suicide Risk Assessment/Sitter precautions Per Dr. Ruiz, patient is medically stable for suicide risk assessment. This designer writer met with patient at length today and completed the [facility] Suicide Risk assessment with patient. Full documentation of assessment to follow. To summarize, patient has no immediate or current thoughts of self harm, intent for suicide, has done no planning, and reports last episode of any self harming behavior was as a teen. Patient verbally contracts for safety, reports ability to talk to daughters now (in particular daughter Jazmine Wild), and agrees would let staff know if thoughts of suicide or self harm arise while in hospital. Patient reports willingness for counseling, as admits to limited coping though does have reasons to live. Also agrees for SNF LOC at discharge. Patient reports that does not want to . Reviewed this designer writer's assessment information with Dr. Ruiz, and physician agreed for lifting of suicide/sitter precautions. Updated interactive media project manager Ashley. Updated daughter Raymond of lifting of precautions, and that will be pursuing SNF for patient. Raymond in agreement with plan. This designer writer reinforced with Raymond, that family has been identified as supports patient could talk to, should patient make any future comments relating to suicide or self harm, that staff should be alerted. Plan: SNF planning being started. Called Cathy at [facility] to confirm whether can accept patient. Referral also being made to [facility] (2nd choice). Full suicide risk assessment to follow. -MENDOZA Romero
--- NOTE | 2023-08-12 16:30 | CASEMGMT ---
Social Work - Suicide Risk Assessment Unit: PCU (Late entry for intervention occurring on 08/12/2023, at approximately [id number]) Reason for Intervention: Suicide risk assessment due to reports by patient upon admission about recent thoughts of killing self and method of using a knife. Patient has had a one-to-one sitter since admission and is now medically cleared for further evaluation of the statements. SUICIDAL IDEATION 1. Wish to be - Have you wished you were or wished you could go to sleep and not wake up? If yes, describe: Yes Lifetime: Time He/She [place] Most Suicidal: Patient reports has had thoughts of suicide on and off all my life. Past 1 month: In the last month reports has been discouraged due to hospitalization. Please Describe if yes: Most recent thought was within the last week, 1 time after being discharged from [facility] back to [place], and before this current hospitalization. 2. Non-Specific Active Suicidal Thoughts - Have you actually had any thoughts of killing yourself? Lifetime: Time He/She [place] Most Suicidal: Reports has had these thoughts on and off throughout whole life, and unable to give specific events other than when feeling under stress. Past 1 month: Denies Please Describe if yes: Not applicable for past month 3. Active Suicidal Ideation with Any Methods (Not Plan) without Intent to Act - Have you been thinking about how you might do this? Lifetime: Time He/She [place] Most Suicidal: Yes, and reports suppose pills as the method would use. Past 1 month: Yes, and reports thought of using a knife. Reports this was a one-time incident. Please Describe if yes: 1 time in the last month as reported above, and off-and-on throughout the years. 4. Active Suicidal Ideation with Some Intent to Act, without Specific Plan - Have you had these thoughts and had some intention of acting on them? Lifetime: Time He/She [place] Most Suicidal: Yes Past 1 month: No Please Describe if yes: None in the last month. Reports in the past, as a minor did have active ideation with intent to act by using pills. 5. Active Suicidal Ideation with Specific Plan and Intent - Have you started to work out or worked out the details of how to kill yourself? Do you intend to carry out this plan? Lifetime: Time He/She [place] Most Suicidal: Yes, reports was feeling distraught as a child and a teenager and took pills. Reports as an adult once told a friend that believed self to have these thoughts as a way to look for attention from others Past 1 month: Denies Please Describe if yes: See above for lifetime INTENSITY OF IDEATION Lifetime - Most Severe Ideation: Score of 5, with pills being the most severe ideation. Recent - Most Severe Ideation: Score of 2 in the last month with a knife being the most severe ideation. Frequency How many times have you had these thoughts? Lifetime: Less than once a week Recent, in last month: Less than once a week Dur.ation When you have the thoughts how long do they last? Lifetime: Thoughts would last for up to 8 hours or be continuous Recent: In the last month, had 1 thought which lasted a couple of hours. Controllability Could/can you stop thinking about killing yourself or wanting to if you want to? Lifetime: Reports could control with some difficulty Recent: Reports easily able to control thoughts Deterrents Are there things - anyone or anything (e.g., family, worship, pain of ) - that stopped you from wanting to or acting on thoughts of committing suicide? Lifetime: Deterrents definitely stopped from attempting. Patient reports her brother has been a deterrent throughout life, and then a good friend who lives in [place]. Recent: Deterrents definitely stopped from attempting. Reports most recently the brother, friend, and also the patient's stepchildren have been deterrence. Reasons for Ideation What sort of reasons did you have for thinking about wanting to or killing yourself? Was it to end the pain or stop the way you were feeling (in other words you couldn?t go on living with this pain or how you were feeling) or was it to get attention, revenge or a reaction from others? Or both? Lifetime: Patient reports this was mostly to get attention and reactions from others Recent: Patient reports it was equally to get attention but also to stop the pain. ? 2008 [employer] [id number] Recent - Clinical (Version 10/18/08) Page 1 of 2___ SUICIDAL BEHAVIOR Lifetime: Patient reports at the age of around 5 or 6 had first attempt by overdosing on pills. Reports the reasoning behind this first attempt was the patient's father going off WW[place] and the family dynamics just not being the same upon her father's return. Patient was 2 years ol when he left for war. Reports then in the eighth grade also overdosed on pills. Re related to boyfriend problemsports the pills were easy access the patient's father was a physician. Past 3 months: Patient reports in the last 3 months no type of suicidal behavior or attempts at harming self. Actual Attempt: To reported overdoses both as a minor. Has subject engaged in Non-Suicidal Self-Injurious Behavior? Patient reports use to self injure by cutting, without intent for suicide. Reports did this around the age of 13. Patient showed this keno writer/runner the patient's forearm, and stated you cannot see them anymore. Interrupted Attempt: Patient denies for lifetime and denies for the last 3 months If yes, describe: Not applicable Total # of Interrupted is reported as : 0 Aborted or Self-Interrupted Attempt: Patient denies for lifetime or last 3 months If yes, describe: Not applicable Number self-interrupted attempts: 0 Preparatory Acts or Behavior: Patient denies for lifetime or last 3 months Acts or preparation towards imminently making a suicide attempt. If yes, describe: Patient reports that the history of attempt was impulsive and not thought out Lethality History: No recent attempt, so no damage to self. Most lethal attempt is reported to be about at the age of 5 or 6, or in the eighth grade when patient took an overdose of pills. Neither of those attempts resulted in medical treatment or sustained injury. Initial first attempt: At the age of 5 or 6, last attempt in the 8th grade, and patient is now 82 years old Potential Lethality: Only Answer if Actual Lethality=0 Recent -1, behavior likely to result in injury but not likely to cause if medical attention was received timely. Lifetime -N/A Summary: Met with patient in room introducing to self and social work role. Patient cooperative and engaged with this keno writer/runner [place] suicide risk assessment. Patient's affect flattened, but eye contact was appropriate. Patient did smile intermittently. A few times patient took an extended period of time to answer, appearing deep in thought, reflecting on her past. Patient reports her [place] really change the dynamics of the family and upon his return for more things were just not the same. Patient described a close relationship with her brother growing up, and that her brother has been a deterrent in the patient completing suicide throughout the years. Patient reports as a teenager did self injures behavior without intent for suicide, but has not done this since her teenage years. Reports last actual attempt at suicide was in the eighth grade. Reports thoughts of suicide and has been intermittent throughout the years, without any intent or plan to act. Denies access to lethal means. Patient denies any physical, emotional, or sexual trauma in her life. Reports had good parents, but that her father was a changed person after the war. Patient denies any history of inpatient hospitalization or outpatient counseling. Has been treated with citalopram by her primary care doctor. Reports at this time it may be helpful to talk with somebody regularly about her feelings. Patient denies any intent to injure self or attempted suicide. Denies any thoughts of harm to others. Reports desire to get better and go to rehab for physical rehabilitation. Reports family local are a motivator and important to the patient in her life. Patient reports that she could talk to her stepchildren especially her daughter Angela Mariee who is a nurse. Patient verbally contracts for safety, reporting would speak with her family and would even speak up to staff should patient start having thoughts of suicide or again in the future. Patient reports it has been an eye-oracle architect, this week in the hospital, and reports understanding that although she has wanted attention in the past this is not the type of attention that patient feels is helpful. This keno writer/runner believes patient could be lifted from one-on-one restrictions. We will would suggest follow-up at the nursing facility social work and/or counseling. Anti-inflammatory medication. This keno writer/runner reviewed risk assessment with patient's hospitalist, Dr. Mccarthy who also is in agreement of lifting the one-to-one sitter restriction. Plan: One-on-one sitter precaution being lifted. Patient to follow-up with social work and our counseling at the nursing facility. Resources for counseling provided to patient. -JOHN Romero, SKEIN BANDER *This note was generated with flaveitation software. It may contain incorrect words, spelling, and punctuation that were not noted in review of the chart prior to signing*
[2023-08-12] MEDS: MELATONIN 3 MG TABLET PO (20:11)
[2023-08-12] MEDS: Citalopram 10 MG Tablet PO (20:11)
[2023-08-13] VITALS (11 sets, daily range): BP systolic 101–127; BP diastolic 44–59; PULSE 70–83; RESP 15–22; TEMP 36.4–36.9; O2SAT 77–100; BMI 43.9
[2023-08-13 05:11] LABS: Absolute Lymphocyte Count 2.05 X10^3/uL (0.83-4.51); Absolute Neutrophil Count 4.1 X10^3/uL (2.0-7.7); Basophil# 0.08 X10^3/uL; Basophil% 1.1 % (0-1); Eosinophil# 0.19 X10^3/uL; Eosinophils% 2.6 % (0-5); Hematocrit 33.7 % (37-47); Hemoglobin 10.5 g/dL (12.0-15.0); Lymphocyte # 2.05 X10^3/ul (0.83-4.51); Lymphocyte % 28.3 % (19-41); Mean Corp Hgb Conc 31.2 g/dL (32-36); Mean Corpuscular Hgb 30.9 pg (27.0-32.0); Mean Corpuscular Volume 99.1 fL (81-99); Mean Platelet Vol. 9.6 fl (6.2-12.0); Monocyte# 0.79 X10^3/uL; Monocyte% 10.9 % (0-10); NRBC Flagged by Analyzer 0 % (0-5); Neutrophil # 4.09 X10^3/uL (2.7-7.7); Neutrophil % 56.5 % (47-70); Platelet Count 347 K/mm3 (150-450); RBC Distribution Width CV 13.8 % (11.6-14.6); RBC Distribution Width SD 50.3 fl (35.1-43.9); White Blood Count 7.2 K/mm3 (4.4-11.0)
[2023-08-13] MEDS: Piperacil/Tazobactam 3.375 GM in 0.9% Normal Saline (50mL MB+) 50 ML IV ×3 (05:19→21:48)
[2023-08-13 05:41] LABS: Anion Gap 5 (5-15); BUN 11 mg/dL (7-18); BUN/Creat Ratio 14.5 RATIO (10-20); Calcium,Total 7.8 mg/dL (8.5-10.1); Chloride 101 mmol/L (98-107); Creatinine, Serum 0.76 mg/dL (0.55-1.02); EST Glomerular Filtration Rate 78 mL/min (>60); Est Glom Filt Rate - Afr Amer 94 mL/min (>60); Estimated Creatinine Clearance 32.73 ml/min; Glucose 86 mg/dL (74-106); Potassium 3.5 mmol/L (3.5-5.1); Sodium Level 136 mmol/L (136-145)
[2023-08-13] MEDS: Ipratropium/Albuterol Sulfate 3 ML AMPUL.NEB INHALATION ×3 (07:42→20:45)
[2023-08-13] MEDS: Furosemide 40 MG Tablet PO (08:45)
[2023-08-13] MEDS: Aspirin 81 MG TAB.CHEW PO (08:45)
[2023-08-13] MEDS: Propranolol 40 MG Tablet PO (08:45)
[2023-08-13] MEDS: Enoxaparin 40 MG/0.4 ML Syringe SC (08:45)
[2023-08-13] MEDS: Pantoprazole Sodium 40 MG Tablet PO (08:45)
[2023-08-13] MEDS: Miconazole Nitrate 43 GM Bottle 1 APPLIC TOPICAL ×2 (08:46→21:41)
[2023-08-13] MEDS: Polyethylene Glycol 3350 17 GM PACKET PO (08:46)
[2023-08-13] MEDS: Acetaminophen 325 MG Tablet 650 MG PO ×2 (09:01→21:44)
--- NOTE | 2023-08-13 15:58 | CASEMGMT ---
Social Work Patient declined by [facility]. This chief underwriter spoke with Shwetha at [facility] regarding patient's suicidal ideation, release from 1:1 precautions. Answered all of Shwetha's questions. Shwetha reports to feel comfortable with where patient is at. This chief underwriter did let Shwetha know that patient would benefit from visits by social work and/or psychology at [facility] for counseling/support. Shwetha reports will have a bed available on 08.14.23. Updated patient and daughter Jazmine. Answered all questions. Patient with bright affect, smiling, alert, good eye contact today. Reports to be feeling good and has had nice visits from others today. Faxed precert authorization to [facility] at [phone]. Plan: [facility] [employer] [facility] pending insurance precert. -MENDOZA Romero
--- NOTE | 2023-08-13 16:29 | PN.HOSP_ITS ---
Reason for Visit Reason for Visit: Diagnoses Weakness (08/09/23) Subjective Subjective Patient is feeling better today overall, visiting with family, no abdominal pain or nausea, feels breathing is better Objective Data Objective Data Vital Signs: Vital Signs Temp Pulse Resp BP Pulse Ox O2 Del Method O2 Flow Rate 98.4 F 83 16 104/55 L 96 Nasal Cannula 2 08/13/23 13:22 08/13/23 13:22 08/13/23 13:22 08/13/23 13:22 08/13/23 13:22 08/13/23 13:26 08/13/23 13:26 Oxygen Flow Rate (L/min) [ 2 AMBULATING with Oxygen #2] Oxygen Flow Rate (L/min) [ 1 AMBULATING with Oxygen #1] Oxygen Flow Rate (L/min) 2 Oxygen Delivery Method Nasal Cannula Weight: 105.5 kg Body Mass Index (BMI) 43.9 Intake & Output: Intake and Output for Last 24 Hours 08/11/23 08/12/23 08/13/23 23:59 23:59 23:59 Intake Total 970 / 970 590 / 1030 1330 / 1330 Output Total 900 / 900 Balance 70 / 70 590 / 1030 1330 / 1330 Lab / Micro Data 08/13/23 04:25 08/13/23 04:25 Labs: Laboratory Results - last 24 hr 08/13/23 04:25: WBC 7.2, RBC 3.40 L, Hgb 10.5 L, Hct 33.7 L, MCV 99.1 H, MCH 30.9, MCHC 31.2 L, RDW Std Deviation 50.3 H, RDW Coeff of [place] 13.8, Plt Count 347, MPV 9.6, Immature Gran % (Auto) 0.600, Neut % (Auto) 56.5, Lymph % (Auto) 28.3, [place] % (Auto) 10.9 H, Eos % (Auto) 2.6, Baso % (Auto) 1.1 H, Absolute Neuts (auto) 4.1, Absolute Lymphs (auto) 2.05, Nucleated RBC % 0, Sodium 136, Potassium 3.5, Chloride 101, Carbon Dioxide 30.0, Anion Gap 5, BUN 11, Creatinine 0.76, Estim Creat Clear Calc 32.73, Est GFR (MDRD) Af Amer 94, Est GFR (MDRD) Non-Af 78, BUN/Creatinine Ratio 14.5, Glucose 86, Calcium 7.8 L Micro: Microbiology 08/09/23 13:30 Blood Culture (Wb) - Venous Blood Culture - Preliminary No growth in 48 hours. 08/09/23 15:23 Blood Culture (Wb) - Anticubital Left Blood Culture - Pre liminary No growth in 48 hours. 08/09/23 14:45 Urine, Clean Catch Urine Culture - Final Culture exhibits no growth. 08/09/23 20:02 Mucosa - Nasopharyngeal Respiratory Panel (PCR) - Final 08/09/23 14:20 Nasal Secretion SARS-CoV-2 & FLU Antigen (Rapid) - Final Physical Exam Narrative General: Alert, social smile, interactive HEENT: Atraumatic, normocephalic Eyes: Anicteric, normal conjunctiva, extraocular movements grossly intact Neck: Supple Respiratory: Crackles at bases bilaterally, aeration somewhat improved further Cardiovascular: Regular rate GI: Soft, nontender, nondistended Extremities: LE edema 1+ Musculoskeletal: Moving all extremities Neuro: No overt focal neurological deficits Skin: RLE erythema resolved Psych: Cooperative today Assessment & Plan Assessment/Plan (1) Weakness: PLAN: Plan #Generalized weakness/fall/slightly confused -Likely secondary to underlying infection with slight bump in white count with left shift as well as multiple possible etiologies though unclear if it is pneumonia, UTI, or right lower extremity cellulitis as patient has very difficult time giving symptomatology and continues to repeat she just feels generally weak and unwell -No cough so less likely pneumonia but with continued diarrhea will check respiratory panel, COVID-negative, advised patient begins to bring up sputum we can get culture -UA could be suggestive of UTI, urine culture ordered -Monitor erythema of right lower extremity -We will broaden antibiotic spectrum given she is already on Cipro and Flagyl as it may be resistant to fluoroquinolones, MRSA swab so can de-escalate vancomycin if negative -Ciprofloxacin can also worsen confusion in the elderly, given likely UTI despite antibiotics will change from quinolone anyway while awaiting cultures -Given diarrhea, confusion, generalized weakness we will check TSH and B12 as w ell as liver function -PT/OT -CM/SW consult -08/10: Suspect patient will need placement, continue to follow cultures, continue antibiotics -08/11: Patient was more alert today and was answering questions appropriately. PT/OT ordered, still suspect patient will need placed -08/12: Continues to improve, patient to be seen by social work, if there are further mental health concerns crisis will evaluate however if not will begin looking for placement. Awaiting eval -08/13: Patient doing overall better, no inpatient psychiatric needs so placement pursued, pending pre-CERT #Hypoxia and respiratory alkalosis -Discussed with patient's nurse patient taken off of O2 earlier and went to 87- 89% on room air and had cannula replaced -Has some crackles but primarily on left side, on antibiotics, with lack of cough unclear if there is pneumonia but there is infiltrate -ABG obtained and pH have actually 7.6 with good PO2 on nasal cannula and PCO2 of only 26.9. Could have bronchospasm or have component of overload or anxiety, will give nebs, is up in weight from several days ago so trial dose of Lasix. -recheck abg in AM or sooner if change in mental or respiratory status -08/11: Respiratory status improved with Lasix yesterday, does have some crackles at the bases today with bilateral lower extremity swelling, will give another dose of Lasix and will also check echocardiogram as we do not have the history of heart failure or abnormality in her system but patient does seem overloaded -08/12: Echocardiogram with indeterminate diastolic function, do suspect there is likely an aspect of diastolic dysfunction, continue 40 Lasix daily -08/13: Tolerating Lasix, continue present management #Suicidal ideation -08/10: Voiced yesterday during her intake, on suicide precautions, will need crisis eval -08/11: Will likely be medically ready to be evaluated by crisis tomorrow -08/12: As above -08/13: Discussed with social work at length after patient evaluation. Patient no longer in need of sitter, see social work note. Patient brighter affect, social smile, cooperative today #RLE erythema -And daughter reports she thinks it is more swollen compared to left, both legs seem to be about the same amount of swelling but does have some increased erythema on right lower extremity -We will check vascular duplex just to verify no thrombus or confounding factor -Broad-spectrum antibiotics -BNP slightly elevated but similar to previous and do not think patient is acutely overloaded at this time but can always consider echocardiogram if any worsening respiratory status or increase swelling, daily weights, I's and O's -08/10: Erythema improving -08/11: Resolved with antibiotics, MRSA swab negative so vancomycin DC'd, still on Zosyn given we are still covering for her colitis but suspect her cellulitis and fluid overload was the reason for her presentation as other cultures have been negative but right leg did look cellulitic on presentation -08/12: Continue present management #Recent pancolitis -C. difficile and enteric panel has been negative -On Cipro and Flagyl, ciprofloxacin can cause confusion in elderly, will switch antibiotics to Zosyn -Will need outpatient GI follow-up -08/11: Continue Zosyn -08/12: Continues to improve #Tremors -Chronic -On d/c summ pt was on 40 of propranolol, this is what was continued here #Hypertension -Continue present medications #DVT ppx: Lovenox subcu Bruna Ruiz MD Time spent in the patient's overall evaluation,decision-making process, review of diagnostic data, adjustment of management, discussion with other providers, nursing nursing and ancillary staff involved in patient's care documentation, 40 minutes Charges/Coding Visit Charges Inpatient E&M: 91396 Subs Hosp L2
[2023-08-13] MEDS: Citalopram 10 MG Tablet PO (21:42)
[2023-08-13] MEDS: MELATONIN 3 MG TABLET PO (21:42)
[2023-08-14 01:00] VITALS: BP 145/52; PULSE 70; RESP 16; TEMP 36.9; O2SAT 99
[2023-08-14 03:36] VITALS: BP 127/60; PULSE 72; RESP 16; TEMP 36.3; O2SAT 99
[2023-08-14] MEDS: Piperacil/Tazobactam 3.375 GM in 0.9% Normal Saline (50mL MB+) 50 ML IV ×2 (06:41→14:16)
[2023-08-14 06:58] LABS: Absolute Lymphocyte Count 1.81 X10^3/uL (0.83-4.51); Absolute Neutrophil Count 4.5 X10^3/uL (2.0-7.7); Basophil# 0.09 X10^3/uL; Basophil% 1.2 % (0-1); Eosinophil# 0.23 X10^3/uL; Eosinophils% 3.1 % (0-5); Hematocrit 35.6 % (37-47); Lymphocyte # 1.81 X10^3/ul (0.83-4.51); Lymphocyte % 24.1 % (19-41); Mean Corp Hgb Conc 30.9 g/dL (32-36); Mean Corpuscular Hgb 30.3 pg (27.0-32.0); Mean Corpuscular Volume 98.1 fL (81-99); Mean Platelet Vol. 9.3 fl (6.2-12.0); Monocyte# 0.84 X10^3/uL; Monocyte% 11.2 % (0-10); NRBC Flagged by Analyzer 0 % (0-5); Neutrophil # 4.51 X10^3/uL (2.7-7.7); Platelet Count 364 K/mm3 (150-450); RBC Distribution Width CV 13.8 % (11.6-14.6); RBC Distribution Width SD 49.8 fl (35.1-43.9); Red Blood Count 3.63 M/mm3 (4.2-5.4); White Blood Count 7.5 K/mm3 (4.4-11.0)
[2023-08-14 07:31] LABS: Anion Gap 5 (5-15); BUN 10 mg/dL (7-18); BUN/Creat Ratio 15.4 RATIO (10-20); Chloride 104 mmol/L (98-107); Creatinine, Serum 0.65 mg/dL (0.55-1.02); EST Glomerular Filtration Rate 92 mL/min (>60); Est Glom Filt Rate - Afr Amer 112 mL/min (>60); Estimated Creatinine Clearance 32.73 ml/min; Glucose 98 mg/dL (74-106); Potassium 3.6 mmol/L (3.5-5.1); Sodium Level 140 mmol/L (136-145)
[2023-08-14] MEDS: Ipratropium/Albuterol Sulfate 3 ML AMPUL.NEB INHALATION (07:42)
[2023-08-14 08:27] VITALS: PULSE 71; RESP 18; O2SAT 95
[2023-08-14] MEDS: Acetaminophen 325 MG Tablet 650 MG PO (08:29)
[2023-08-14] MEDS: Aspirin 81 MG TAB.CHEW PO (08:30)
[2023-08-14 09:42] VITALS: BP 118/56; PULSE 73; RESP 18; TEMP 36.8; O2SAT 99
[2023-08-14] MEDS: Miconazole Nitrate 43 GM Bottle 1 APPLIC TOPICAL (10:23)
[2023-08-14] MEDS: Enoxaparin 40 MG/0.4 ML Syringe SC (10:23)
[2023-08-14] MEDS: Pantoprazole Sodium 40 MG Tablet PO (10:24)
[2023-08-14] MEDS: Propranolol 40 MG Tablet PO (10:24)
[2023-08-14] MEDS: Furosemide 40 MG Tablet PO (10:24)
--- NOTE | 2023-08-14 13:39 | PCM.TXEXTCAR ---
Diet Diet Order/Speech Therapy: 08/09/23 17:05 Diet: Transitional Routine Orders/Code Status Suppository Frequency: Daily PRN O2 Liters per Minute: 2 O2 Frequency: PRN Keep PO Greater than or Equal to (%): 92 Routine Lab Work: BMP (2-3 days) Therapies Physical Therapy: Eval and Treat Occupational Therapy: Eval and Treat Problem/Diagnosis (1) Weakness: Status: Acute Code(s): R53.1 - Weakness (2) Morbid obesity: Status: Acute Code(s): E66.01 - Morbid (severe) obesity due to excess calories (3) Hypertension: Status: Chronic Code(s): I10 - Essential (primary) hypertension (4) Fluid overload: Status: Acute Code(s): E87.70 - Fluid overload, unspecified Plan #Generalized weakness/fall/slightly confused 2/2 RLE cellulitis #Hypoxia and respiratory alkalosis 2/2 pulmonary HTN and suspected diastolic dysfunction #Suicidal ideation resolved #Recent pancolitis- resolved #Tremors, chronic #Hypertension #Morbid obesity FLORIAN CHAPMAN, is a 82F with history of hypertension and arthritis who lives at [facility] presented to [facility] 08/09/2023 with increasing weakness and a fall. She had been in the hospital recently for pancolitis and was discharged on Cipro and Flagyl 1 week prior to review presentation but since discharge has had increasing weakness and had a fall in the bathroom on day of presentation that required several people to help get her up and she has been max assist despite previously being independent. She had been more tired and confused and urine had been dark. In ED UA suggestive of UTI but she also had chest x-ray suggestive of pneumonia and she was started on antibiotics and given her concurrent weakness and falls hospitalist contacted for admission. On physical exam patient also had some right lower extremity cellulitis which improved rapidly with antibiotics. Suspicion for actual pneumonia was low given patient had bilateral crackles more concerning for fluid overload and had no cough or sputum production. Additionally urine culture with no growth. Suspect presentation was a combination of right lower extremity cellulitis as well as fluid overload. She was given diuretics which was helpful and echo showed good EF but unable to assess diastolic dysfunction, suspect she has an aspect of pulmonary hypertension given PASP of 50 mmHg and likely does have a component of diastolic dysfunction given presentation. Patient saturations improved with Lasix but did still require O2 on ambulation at this time. Would also benefit from sleep study as given BMI and pulmonary hypertension is possible she has sleep apnea. Hospitalization was complicated by patient reporting thoughts of hurting herself on admission screen and she had sitter and suicide precautions. She was evaluated by social work here and patient with no active thoughts of hurting herself, did not have plan to hurt herself and was able to contract for safety. Suicide precautions discontinued and patient with brighter affect, social smile, more cooperative. Was still generally weak however and required placement at SNF. Discharge to SNF in stable condition with discharge instructions as follows: DISCHARGE INSTRUCTIONS PLEASE READ *Please take this with you to your next doctors appointment* -You have finished antibiotic course for your colitis and will need to take keflex 4 times daily. You will finish out today and have one more day of your antibiotic course -Due to having too much fluid on you you have been started on Lasix 40 mg daily and this has been helpful. You also required 2 L of oxygen with ambulation and will be discharged with instructions to continue this at this time -Additionally if you have not had a sleep study in the past you may benefit from a sleep study to assess for sleep apnea -Weigh yourself every day. A sudden weight gain can mean you are retaining fluid. Weigh yourself at the same time of day and in the same kind of clothes. Ideally, weigh yourself first thing in the morning after you empty your bladder, but before you eat breakfast. -Please call your physician if your weight goes up by more than 2 pounds in 1 day or 5 pounds in 1 week. This can be a sign that you are retaining more fluid than you should be. -Would recommend lab work ([facility]) to check your potassium and kidney function in 2 to 3 days through your primary care physician's office. Please call their office upon discharge to obtain order for lab work. -Would recommend visits by social work and/or psychology at [facility] for counseling/support moving forward and consider establishing care with therapist after discharge home if any further problems persist or arise -Please call your primary care provider's office upon discharge to schedule a hospital follow up within 1 week. -For any concerning signs or symptoms please call 911 or proceed to the nearest emergency department Allergies/Procedures Done in Hospital Allergies Sulfa (Sulfonamide Antibiotics) Allergy (Unknown, Verified 08/09/23 13:37) Unknown UNKNOWN REACTION adhesive Allergy (Verified 08/09/23 13:37) Rash Procedures: 2-D Echocardiogram Type of Care/Length of Stay Estimated LOS: Convalescent Care Less Than 30 days Type of Care Needed: Skilled Rehab Potential: Fair Prognosis: Fair Additional Orders/Day of Discharge Day of Discharge: 08/14/23 Dietary and Speech Recommendations Dietitian Recommendations/Changes: Recommend advance diet as tolerated to regular with sodium-restricted as needed. ONS if PO fails at meals. Discharge Plan Admission Admit Date/Time: 08/09/23 16:41 Primary Reason for Your Visit: Weakness, confusion, fall Attending Provider: Bruna Ruiz Primary Care Provider: Ihsan Cramer GROCERY CLERK Instructions Patient Instructions: ED Fall Prevention Additional Instructions / Restrictions: DISCHARGE INSTRUCTIONS PLEASE READ *Please take this with you to your next doctors appointment* -You have finished antibiotic course for your colitis and will need to take keflex 4 times daily. You will finish out today and have one more day of your antibiotic course -Due to having too much fluid on you you have been started on Lasix 40 mg daily and this has been helpful. You also required 2 L of oxygen with ambulation and will be discharged with instructions to continue this at this time -Additionally if you have not had a sleep study in the past you may benefit from a sleep study to assess for sleep apnea -Weigh yourself every day. A sudden weight gain can mean you are retaining fluid. Weigh yourself at the same time of day and in the same kind of clothes. Ideally, weigh yourself first thing in the morning after you empty your bladder, but before you eat breakfast. -Please call your physician if your weight goes up by more than 2 pounds in 1 day or 5 pounds in 1 week. This can be a sign that you are retaining more fluid than you should be. -Would recommend lab work ([facility]) to check your potassium and kidney function in 2 to 3 days through your primary care physician's office. Please call their office upon discharge to obtain order for lab work. -Would recommend visits by social work and/or psychology at [facility] for counseling/support moving forward and consider establishing care with therapist after discharge home if any further problems persist or arise -Please call your primary care provider's office upon discharge to schedule a hospital follow up within 1 week. -For any concerning signs or symptoms please call 911 or proceed to the nearest emergency department Discharge Orders/Prescriptions Prescriptions: New cephalexin 500 mg capsule 500 mg PO Q6H 1 Days Qty: 5 0RF Rx Instructions: One dose tonight then four times tomorrow furosemide 40 mg Tablet 40 mg PO DAILY 30 Days Qty: 30 0RF Continued lisinopril 10 mg tablet 10 mg PO DAILY aspirin 81 MG tablet,chewable 81 mg PO DAILY Hold Instructions: Resume on 08/06/23. citalopram 10 MG tablet 10 mg PO QHS acetaminophen 500 MG tablet 1,000 mg PO 4X/DAY PRN (Reason: Pain) multivitamin Tablet 1 tab PO DAILY omeprazole 40 mg capsule,delayed release(DR/EC) 40 mg PO DAILY loperamide 2 mg capsule 2 mg PO UD PRN (Reason: loose stool) Hold Instructions: MD Ordered Rx Instructions: take one capsule by mouth as needed for each additional loose stool. do not exceed 8 capsules within a day. polyethylene glycol 3350 [ClearLax] 17 gram/dose powder 17 g PO DAILY Changed propranolol 80 mg tablet 40 mg PO DAILY Qty: 30 0RF Patient Comments: check on dose Discontinued naproxen sodium 220 MG tablet 220 mg PO BID Hold Instructions: Resume on 08/06/23. ciprofloxacin HCl 500 mg tablet 500 mg PO BID Qty: 20 0RF metronidazole 500 mg tablet 500 mg PO Q8H Qty: 30 0RF Referrals / Follow Up: Ihsan Cramer GROCERY CLERK, GROCERY CLERK-C [Primary Care Provider] - Within 1 Week Disposition Disposition (needs filled in before D/C Order can be placed): Nursing Home Facility
[2023-08-14 13:40] VITALS: PULSE 78; RESP 22
--- NOTE | 2023-08-14 13:50 | PCM.DC.SUM ---
Providers Date of Admission: 08/09/23 Date of Discharge: 08/14/23 Primary Care Physician: Ihsan Cramer, SONA-C Reason For Visit: PROFOUND WEKANESS W/FALLS Diagnosis Discharge Diagnosis (1) Weakness: Status: Acute Code(s): R53.1 - Weakness (2) Morbid obesity: Status: Acute Code(s): E66.01 - Morbid (severe) obesity due to excess calories (3) Hypertension: Status: Chronic Code(s): I10 - Essential (primary) hypertension (4) Fluid overload: Status: Acute Code(s): E87.70 - Fluid overload, unspecified Plan #Generalized weakness/fall/slightly confused 2/2 RLE cellulitis #Hypoxia and respiratory alkalosis 2/2 pulmonary HTN and suspected diastolic dysfunction #Suicidal ideation resolved #Recent pancolitis- resolved #Tremors, chronic #Hypertension #Morbid obesity Medications at Discharge Home Medications aspirin 81 mg chewable tablet 81 mg PO DAILY heart health 10/26/13 citalopram 10 mg tablet 10 mg PO QHS depression 01/18/14 acetaminophen 500 mg tablet 1,000 mg PO 4X/DAY PRN Pain 02/24/17 lisinopril 10 mg tablet 10 mg PO DAILY blood pressure 05/12/19 loperamide 2 mg capsule 2 mg PO UD PRN loose stool 07/30/23 multivitamin 1 tab PO DAILY health maintenance 07/30/23 omeprazole 40 mg capsule,delayed release 40 mg PO DAILY acid reflux 07/30/23 polyethylene glycol 3350 17 gram/dose oral powder (ClearLax) 17 g PO DAILY constipation 07/30/23 cephalexin 500 mg capsule 500 mg PO Q6H 1 day #5 caps 08/14/23 furosemide 40 mg tablet 40 mg PO DAILY 30 days #30 tabs 08/14/23 propranolol 80 mg tablet 40 mg (1/2 x 80 mg) PO DAILY heart #30 tabs 08/14/23 Hospital Course Procedures 2-D Echocardiogram Summary of Care Provided Minutes Spent on Discharge: 40 Hospital Course: FLORIAN CHAPMAN, is a 82F with history of hypertension and arthritis who lives at [facility] presented to [facility] 08/09/2023 with increasing weakness and a fall. She had been in the hospital recently for pancolitis and was discharged on Cipro and Flagyl 1 week prior to review presentation but since discharge has had increasing weakness and had a fall in the bathroom on day of presentation that required several people to help get her up and she has been max assist despite previously being independent. She had been more tired and confused and urine had been dark. In ED UA suggestive of UTI but she also had chest x-ray suggestive of pneumonia and she was started on antibiotics and given her concurrent weakness and falls hospitalist contacted for admission. On physical exam patient also had some right lower extremity cellulitis which improved rapidly with antibiotics. Suspicion for actual pneumonia was low given patient had bilateral crackles more concerning for fluid overload and had no cough or sputum production. Additionally urine culture with no growth. Suspect presentation was a combination of right lower extremity cellulitis as well as fluid overload. She was given diuretics which was helpful and echo showed good EF but unable to assess diastolic dysfunction, suspect she has an aspect of pulmonary hypertension given PASP of 50 mmHg and likely does have a component of diastolic dysfunction given presentation. Patient saturations improved with Lasix but did still require O2 on ambulation at this time. Would also benefit from sleep study as given BMI and pulmonary hypertension is possible she has sleep apnea. Hospitalization was complicated by patient reporting thoughts of hurting herself on admission screen and she had sitter and suicide precautions. She was evaluated by social work here and patient with no active thoughts of hurting herself, did not have plan to hurt herself and was able to contract for safety. Suicide precautions discontinued and patient with brighter affect, social smile, more cooperative. Was still generally weak however and required placement at SNF. Discussed discharge instructions with daughter at bedside. Discharge to SNF in stable condition with discharge instructions as follows: DISCHARGE INSTRUCTIONS PLEASE READ *Please take this with you to your next doctors appointment* -You have finished antibiotic course for your colitis and will need to take keflex 4 times daily. You will finish out today and have one more day of your antibiotic course -Due to having too much fluid on you you have been started on Lasix 40 mg daily and this has been helpful. You also required 2 L of oxygen with ambulation and will be discharged with instructions to continue this at this time -Additionally if you have not had a sleep study in the past you may benefit from a sleep study to assess for sleep apnea -Weigh yourself every day. A sudden weight gain can mean you are retaining fluid. Weigh yourself at the same time of day and in the same kind of clothes. Ideally, weigh yourself first thing in the morning after you empty your bladder, but before you eat breakfast. -Please call your physician if your weight goes up by more than 2 pounds in 1 day or 5 pounds in 1 week. This can be a sign that you are retaining more fluid than you should be. -Would recommend lab work ([facility] [place]) to check your potassium and kidney function in 2 to 3 days through your primary care physician's office. Please call their office upon discharge to obtain order for lab work. -Would recommend visits by social work and/or psychology at [facility] for counseling/support moving forward and consider establishing care with therapist after discharge home if any further problems persist or arise -Please call your primary care provider's office upon discharge to schedule a hospital follow up within 1 week. -For any concerning signs or symptoms please call 911 or proceed to the nearest emergency department Physical Exam Narrative General: Alert, social smile, interactive HEENT: Atraumatic, normocephalic Eyes: Anicteric, normal conjunctiva, extraocular movements grossly intact Neck: Supple Respiratory: Fine crackles at bases bilaterally but aeration improving Cardiovascular: Regular rate GI: Soft, nontender, nondistended Extremities: LE edema trace to 1+ Musculoskeletal: Moving all extremities Neuro: No overt focal neurological deficits Skin: RLE erythema resolved Psych: Cooperative today Weight / BMI Weight Weight: 105.5 kg Body Mass Index (BMI) 43.9 ABG / Lab / Microbiology Data 08/14/23 06:30 08/14/23 06:30 Laboratory: Laboratory Results - last 24 hr 08/14/23 06:30: WBC 7.5, RBC 3.63 L, Hgb 11.0 L, Hct 35.6 L, MCV 98.1, MCH 30.3, MCHC 30.9 L, RDW Std Deviation 49.8 H, RDW Coeff of Lee 13.8, Plt Count 364, MPV 9.3, Immature Gran % (Auto) 0.400, Neut % (Auto) 60.0, Lymph % (Auto) 24.1, [place] % (Auto) 11.2 H, Eos % (Auto) 3.1, Baso % (Auto) 1.2 H, Absolute Neuts (auto) 4.5, Absolute Lymphs (auto) 1.81, Nucleated RBC % 0, Sodium 140, Potassium 3.6, Chloride 104, Carbon Dioxide 31.0, Anion Gap 5, BUN 10, Creatinine 0.65, Estim Creat Clear Calc 32.73, Est GFR (MDRD) Af Amer 112, Est GFR (MDRD) Non-Af 92, BUN/Creatinine Ratio 15.4, Glucose 98, Calcium 8.0 L Microbiology: Microbiology 08/09/23 13:30 Blood Culture (Wb) - Venous Blood Culture - Preliminary No growth in 48 hours. 08/09/23 15:23 Blood Culture (Wb) - Anticubital Left Blood Culture - Preliminary No growth in 48 hours. 08/09/23 14:45 Urine, Clean Catch Urine Culture - Final Culture exhibits no growth. 08/09/23 20:02 Mucosa - Nasopharyngeal Respiratory Panel (PCR) - Final 08/09/23 14:20 Nasal Secretion SARS-CoV-2 & FLU Antigen (Rapid) - Final D/C Instructions Discharge Diet: Light diet - advance as tolerated and - (2 L fluid restriction) Discharge Activity: - (Advance as tolerated) Meaningful Use Info Meaningful Use Diagnoses (Choose all that apply): None applicable Discharge Plan Admission Admit Date/Time: 08/09/23 16:41 Primary Reason for Your Visit: Weakness, confusion, fall Attending Provider: Bruna Ruiz Primary Care Provider: Ihsan Cramer WAVE SOLDER OFFBEARER Instructions Patient Instructions: ED Fall Prevention Additional Instructions / Restrictions: DISCHARGE INSTRUCTIONS PLEASE READ *Please take this with you to your next doctors appointment* -You have finished antibiotic course for your colitis and will need to take keflex 4 times daily. You will finish out today and have one more day of your antibiotic course -Due to having too much fluid on you you have been started on Lasix 40 mg daily and this has been helpful. You also required 2 L of oxygen with ambulation and will be discharged with instructions to continue this at this time -Additionally if you have not had a sleep study in the past you may benefit from a sleep study to assess for sleep apnea -Weigh yourself every day. A sudden weight gain can mean you are retaining fluid. Weigh yourself at the same time of day and in the same kind of clothes. Ideally, weigh yourself first thing in the morning after you empty your bladder, but before you eat breakfast. -Please call your physician if your weight goes up by more than 2 pounds in 1 day or 5 pounds in 1 week. This can be a sign that you are retaining more fluid than you should be. -Would recommend lab work ([facility]) to check your potassium and kidney function in 2 to 3 days through your primary care physician's office. Please call their office upon discharge to obtain order for lab work. -Would recommend visits by social work and/or psychology at [facility] for counseling/support moving forward and consider establishing care with therapist after discharge home if any further problems persist or arise -Please call your primary care provider's office upon discharge to schedule a hospital follow up within 1 week. -For any concerning signs or symptoms please call 911 or proceed to the nearest emergency department Discharge Orders/Prescriptions Prescriptions: New cephalexin 500 mg capsule 500 mg PO Q6H 1 Days Qty: 5 0RF Rx Instructions: One dose tonight then four times tomorrow furosemide 40 mg Tablet 40 mg PO DAILY 30 Days Qty: 30 0RF Continued lisinopril 10 mg tablet 10 mg PO DAILY aspirin 81 MG tablet,chewable 81 mg PO DAILY Hold Instructions: Resume on 08/06/23. citalopram 10 MG tablet 10 mg PO QHS acetaminophen 500 MG tablet 1,000 mg PO 4X/DAY PRN (Reason: Pain) multivitamin Tablet 1 tab PO DAILY omeprazole 40 mg capsule,delayed release(DR/EC) 40 mg PO DAILY loperamide 2 mg capsule 2 mg PO UD PRN (Reason: loose stool) Hold Instructions: MD Ordered Rx Instructions: take one capsule by mouth as needed for each additional loose stool. do not exceed 8 capsules within a day. polyethylene glycol 3350 [ClearLax] 17 gram/dose powder 17 g PO DAILY Changed propranolol 80 mg tablet 40 mg PO DAILY Qty: 30 0RF Patient Comments: check on dose Discontinued naproxen sodium 220 MG tablet 220 mg PO BID Hold Instructions: Resume on 08/06/23. ciprofloxacin HCl 500 mg tablet 500 mg PO BID Qty: 20 0RF metronidazole 500 mg tablet 500 mg PO Q8H Qty: 30 0RF Referrals / Follow Up: Ihsan Cramer WAVE SOLDER OFFBEARER, WAVE SOLDER OFFBEARER-C [Primary Care Provider] - Within 1 Week Disposition Disposition (needs filled in before D/C Order can be placed): [facility] Charges/Coding Visit Charges Inpatient E&M: 63424 Disch Hosp >30min
--- NOTE | 2023-08-14 15:21 | CASEMGMT ---
Social Work This curriculum writer spoke with Arlen at [facility] regarding skilled request. Arlen provided authorization for admit to [facility]. Auth#: [id number]. Updated physician, nursing, patient and daughter June. Updated [place] at [facility]. Faxed orders to confirmed fax at [phone]. Arranged Physician's - [facility] - to transport. Musical String Maker will be to hospital at 1730 to pick patient up. Message left for daughter and also updated patient. Patient expressed thanks and agreement with plan. 7000 hospital exemption completed via [employer] for a 30 day or less convalescent stay. Plan: Discharge skilled level of care to [facility], 30 day convalescent stay. No other services requested or indicated. -MENDOZA Romero
[2023-08-14 15:25] VITALS: BP 120/56; PULSE 63; RESP 16; TEMP 36.6; O2SAT 99
== END 2023-08-14 17:10 | DRG 603 ==
LOC: ED 15:57 → PCU 16:29
PROVIDERS: Nurse Practitioner; Admitting Provider Internal Medicine; Emergency Provider Student in an Organized Health Care Education/Training Program; PCP Nurse Practitioner Family; Visit Provider Internal Medicine
DX: L03.115 Cellulitis of right lower limb (principal); E87.3 Alkalosis; Z68.41 Body mass index [BMI] 40.0-44.9, adult; R45.851 Suicidal ideations; I27.20 Pulmonary hypertension, unspecified; E66.01 Morbid (severe) obesity due to excess calories; I10 Essential (primary) hypertension; K52.9 Noninfective gastroenteritis and colitis, unspecified; E87.70 Fluid overload, unspecified; G47.30 Sleep apnea, unspecified; R25.1 Tremor, unspecified; R41.0 Disorientation, unspecified; R62.7 Adult failure to thrive; R09.02 Hypoxemia; R53.1 Weakness; Z11.52 Encounter for screening for COVID-19; Z79.82 Long term (current) use of aspirin; Z79.899 Other long term (current) drug therapy; Z87.891 Personal history of nicotine dependence
CPT/HCPCS: 36415; 36600; 71045; 80048; 80076; 80202; 81001; 82607; 82803; 83605; 83735; 83880; 84100; 84145; 84443; 84484; 85025; 85610; 87040; 87086; 87428; 87633; 87641; 93005; 93306; 93971; 94640; 94668; 97110; 97116; 97162; 97166; 97530; 97535; 97802; 99285; J7030; J7040; P9612; Q9957; A4216; C8929; J0612; J1940; J2405

== ENCOUNTER → 2023-11-11 | Outpatient (CLI) | payer MEDICARE, SELFPAY ==
[2023-11-11 10:43] LABS: Hematocrit 41.2 % (37-47); Hemoglobin 13.1 g/dL (12.0-15.0); Mean Corp Hgb Conc 31.8 g/dL (32-36); Mean Corpuscular Hgb 30.4 pg (27.0-32.0); Mean Corpuscular Volume 95.6 fL (81-99); Mean Platelet Vol. 10.1 fl (6.2-12.0); Platelet Count 408 K/mm3 (150-450); RBC Distribution Width CV 13.7 % (11.6-14.6); RBC Distribution Width SD 48.5 fl (35.1-43.9); Red Blood Count 4.31 M/mm3 (4.2-5.4)
[2023-11-11 12:01] LABS: ALB/GLOB Ratio 0.5 RATIO (0.9-2.4); AST(SGOT) 10 U/L (15-37); Alanine Aminotransfer ALT/SGPT 12 U/L (13-56); Albumin, Serum 2.9 g/dL (3.2-5.0); Alkaline Phosphatase 67 U/L (45-117); Anion Gap 4 (5-15); BUN 17 mg/dL (7-18); Calcium,Total 9.7 mg/dL (8.5-10.1); Chloride 100 mmol/L (98-107); Creatinine, Serum 1.06 mg/dL (0.55-1.02); EST Glomerular Filtration Rate 53 mL/min (>60); Est Glom Filt Rate - Afr Amer 64 mL/min (>60); Globulin 5.3 g/dL (2.2-4.2); Glucose 97 mg/dL (74-106); Protein, Total 8.2 g/dL (6.4-8.2); Sodium Level 133 mmol/L (136-145)
[2023-11-12 08:12] LABS: Cancer Antigen 125 10.2 U/mL (0.0-38.1)
== END | disposition home or self-care (01) ==
PROVIDERS: PCP Nurse Practitioner Family; Referring Provider Nurse Practitioner Primary Care; Visit Provider Nurse Practitioner Primary Care
DX: N93.9 Abnormal uterine and vaginal bleeding, unspecified (principal); R10.9 Unspecified abdominal pain; R11.10 Vomiting, unspecified; Z85.43 Personal history of malignant neoplasm of ovary
CPT/HCPCS: 36415; 80053; 85027; 86304

== ENCOUNTER → 2023-11-23 | Outpatient (CLI) | payer MEDICARE, SELFPAY ==
--- NOTE | 2023-11-23 13:50 | CT_ITS ---
STUDY: CT ABDOMEN AND PELVIS WITH CONTRAST REASON FOR EXAM: Female, 83 years old. ABD PAIN, VOMITING, HX OVARIAN CANCER RADIATION DOSAGE (If Supplied By Facility): CTDIvol = ( 16.15 ) mGy, DLP = ( 972.82 ) mGycm TECHNIQUE: Transaxial images were obtained from the dome of the diaphragm to the symphysis pubis without oral contrast. IV 100mL Isovue-300 was administered. Sagittal and coronal images were reconstructed. Individualized dose optimization techniques were used for this CT. COMPARISON: Comparison is made with prior study dated July 30, 2023. FINDINGS: Stable increased linear markings at the lung bases suggestive of scarring. Coronary artery calcification. There is decreased attenuation of the liver consistent with steatosis. There is a new 1.4 cm enhancing nodule with focal cystic change in the superior medial portion of the right lobe of the liver. This is best seen on axial image #20 and coronal image #71. Normal gallbladder and extrahepatic biliary system. Normal spleen. Normal pancreas. Normal bilateral adrenal glands. Normal right kidney. Normal left kidney. There is a small hiatal hernia. Normal small intestine. There are scattered colonic diverticula consistent with diverticulosis. There is non-visualization of the appendix. There is diffuse atherosclerotic calcification of the abdominal aorta, without a demonstrated aneurysm. Normal inferior vena cava. There is a 1.1 cm lymph node on the right side of the mid abdomen just posterior to the confluence of the splenic vein and portal vein in the right para-aortic region. Normal urinary bladder. There is absence of the uterus consistent with a prior hysterectomy. Normal abdominal wall. There are diffuse degenerative changes of the visualized lumbar spine. Levoconvex scoliosis. CT/Abdomen/Pelvis W IV Cont ONLY IMPRESSION: 1.4 cm enhancing nodule with focal cystic change in the superior-medial portion of the right lobe of the liver. This is new. 1.1 cm lymph node on the right side of the midabdomen just posterior to the confluence and splenic vein and portal vein. Electronically Signed: Timothy Cain MD at 15:30 EST ,
--- OUTSIDE RECORDS SUMMARY | 2023-11-23 15:31 | XMS RPT_ITS | CCD ---
Author Name Unknown Address [facility] [employer] [facility] [address] [place] [address] Organization [facility] Care Team Providers Care Office Machine Punch Operator Name Role Phone BARBARA NEVILLE APRN, CNP Primary Care Phys ician BARBARA NEVILLE APRN, CNP Primary Care U maria e BRUNNER APRN-SENIOR IT ENGINEERDELICIA Attending Virginia katz Allergies Allergy Classification Reported Allergen(s) Allergy Type Date of Onset Reaction(s) Facility (1 source) Adhesive Tape Drug allergy [facility] (1 source) Sulfamethoxazole; Translations: [sulfamethoxazole ] Drug Allergy [facility] Medications Current Medications Medication Drug Class(es) Dates Sig (Normalized) Sig (Original) acetaminophen 500 mg oral tablet (1 source) Start: 09-22-2023 End: 03-20-2024 Tylenol Extra Strength 500 mg oral tablet Dose : 1,000 mg = 2 tab(s), Oral, TID, PRN as needed for pain, # 100 tab(s), 5 Refill(s), Pharmacy: [facility], [address] 148, cm, 09/22/23 11:22:00 EST, Height, kg, 09/22/23 11:09:00 EST, Dosing Weight Start Date: 09/22/23 Stop Date: 03/20/24 Status: Ordered aspirin 81 mg oral tablet (1 source) Platelet Aggregation Inhibitor, Nonsteroidal Anti-inflammatory Drug Start: 09-22-2023 End: 03-20-2024 take 1 tablet by mouth once daily Aspirin Low Dose 81 mg oral tablet 1, Oral, qDay, # 30 tab(s), 5 Refill(s) Start Date: 09/22/23 Stop Date: 03/20/24 Status: Ordered citalopram 10 mg oral tablet (1 source) Serotonin Reuptake Inhibitor Start: 09-22-2023 End: 03-20-2024 citalopram 10 mg oral tablet Dose : 10 mg = 1 tab(s), Oral, qDay, # 90 tab(s), 1 Refill(s), Pharmacy: [facility] 148, cm, 09/22/23 11:22:00 EST, Height, kg, 09/22/23 11:09:00 EST, Dosing Weight Start Date: 09/22/23 Stop Date: 03/20/24 Status: Ordered furosemide 40 mg oral tablet (1 source) Loop Diuretic Start: 09-22-2023 furosemide 40 mg oral tablet Dose : 40 mg = 1 tab(s), Oral, qDay, # 90 tab(s), 1 Refill(s), Pharmacy: [facility] 148, cm, 09/22/23 11:22:00 EST, Height, kg, 09/22/23 11:09:00 EST, Dosing Weight Start Date: 09/22/23 Status: Ordered lisinopril 10 mg oral tablet (1 source) Angiotensin Converting Enzyme Inhibitor Start: 09-22-2023 End: 03-20-2024 lisinopril 10 mg oral tablet Dose : 10 mg = 1 tab(s), Oral, qDay, # 90 tab(s), 1 Refill(s), [facility]acy: [facility] HTN, goal below 140/90, 148, cm, 09/22/23 11:22:00 EST, Height, kg, 09/22/23 11:09:00 EST, Dosing Weight Start Date: 09/22/23 Stop Date: 03/20/24 Status: Ordered loperamide hydrochloride 2 mg oral capsule (1 source) Opioid Agonist Start: 09-22-2023 take 1 mg by mouth once as needed loperamide 2 mg oral capsule mg = cap(s), Oral, q4h, after each loose stool-PRN, 0 Refill(s) Start Date: 09/22/23 Status: Ordered Milk of Magnesia (1 source) Start: 09-22-2023 Milk of Magnesia mg, Oral, PRN, 0 Refill(s) Start Date: 09/22/23 Status: Ordered Misc Medication (1 source) Start: 09-22-2023 [facility] [place] Fiber tablet, 0 Refill(s), 96.36 Start Date: 09/22/23 Status: Ordered Multiple Vitamins oral capsule (1 source) Start: 09-15-2013 take 1 capsule by mouth once daily Multiple Vitamins oral capsule Dose = 1 cap(s), Oral, Daily, 0 Refill(s) Start Date: 09/15/13 Status: Ordered pantoprazole 40 mg delayed release oral tablet (1 source) Proton Pump Inhibitor Start: 09-22-2023 pantoprazole 40 mg oral enteric coated tablet Dose : 40 mg = 1 tab(s), Oral, qDay, # 90 tab(s), 1 Refill(s), [facility]acy: [facility] 148, cm, 09/22/23 11:22:00 EST, Height, kg, 09/22/23 11:09:00 EST, Dosing Weight Start Date: 09/22/23 Status: Ordered polyethylene glycol 3350 10719 mg powder for oral solution (1 source) Osmotic Laxative Start: 09-22-2023 End: 12-15-2023 take 17 doses by mouth once daily as needed for constipation polyethylene glycol 3350 oral powder for reconstitution Dose : 17 gram(s) =, Oral, qDay, PRN Constipation, # 255 gram(s), 5 Refill(s), Pharmacy: [facility] 148, cm, 09/22/23 11:22:00 EST, Height, kg, 09/22/23 11:09:00 EST, Dosing Weight Start Date: 09/22/23 Stop Date: 12/15/23 Status: Ordered Probiotic (1 source) Start: 09-22-2023 Probiotic 0 Refill(s) Start Date: 09/22/23 Status: Ordered propranolol hydrochloride 40 mg oral tablet (1 source) beta-Adrenergic Moncho Start: 09-22-2023 End: 03-20-2024 propranolol 40 mg oral tablet Dose : 40 mg = 1 tab(s), Oral, qHS, # 90 tab(s), 1 Refill(s), [facility]acy: [facility] 148, cm, 09/22/23 11:22:00 EST, Height, kg, 09/22/23 11:09:00 EST, Dosing Weight Start Date: 09/22/23 Stop Date: 03/20/24 Status: Ordered Problems Problem Classification Problem Date Documented Date Episodic/Chronic Abdominal pain (2 sources) Unspecified abdominal pain; Translations: [Unspecified abdominal pain] Onset: 11-11-2023 Episodic Anxiety disorders (1 source) Anxiety 05-26-2019 Chronic Cancer of ovary (1 source) History of malignant neoplasm of ovary 05-26-2019 Episodic Esophageal disorders (1 source) Gastroesophageal reflux disease 08-02-2019 Chronic Essential hypertension (1 source) Hypertensive disorder 09-22-2023 Chronic Results Test Name Value Interpretation Reference Range Facil ity Encounters Encounter Date Encounter Type Care Provider Facility Start: 11-11-2023 End: 11-16-2023 ambulatory BARBARA MCMANUS GULLET SLITTER - SENIOR IT ENGINEER Facility:B Start: 11-11-2023 End: 11-15-2023 Outreach Lab DELICIA BRUNNER GULLET SLITTER-SENIOR IT ENGINEER [facility] Procedures Date Procedure Procedure Detail Performing Clinician Start: 03-17-2016 Colonoscopy DELICIA GARNER GULLET SLITTER-SENIOR IT ENGINEER Immunizations Immunization Date Immunization Notes Care Provider [facility] 09-19-2022 influenza, high dose seasonal, preservative-free DELICIA BRUNNER GULLET SLITTER-SENIOR IT ENGINEER [facility] 02-10-2022 SARS-CoV-2 (COVID-19 ) mRNA-1273 vaccine DELICIA BRUNNER GULLET SLITTER-SENIOR IT ENGINEER [facility] 08-16-2021 SARS-CoV-2 (COVID-19 ) mRNA-1273 vaccine; Translations: [Moderna COVID-19 Vaccine] DELICIA BRUNNER GULLET SLITTER-SENIOR IT ENGINEER [facility] 08-01-2021 influenza, high dose seasonal, preservative-free; Translations: [Fluad Quadrivalent PF ] DELICIA BRUNNER GULLET SLITTER-SENIOR IT ENGINEER [facility] 12-19-2020 SARS-CoV-2 (COVID-19 ) mRNA-[id number] vaccine DELICIA BRUNNER GULLET SLITTER-SENIOR IT ENGINEER [facility] Payers Date Payer Category Payer Unknown [id number] 1940 Unknown [id number] Social History Date Type Detail Facility Start: 09-22-2023 Tobacco smoking status Ex-smoker (fi nding) [facility] Clinical Note 11-13-2023 Note Date & Type Note Facility 11-13-2023 Note . MICRO - Microbiology PROCEDURE: Urine Culture [*1] SOURCE: Urine, Clean Catch BODY SITE: COLLECTED DATE/TIME: 11/11/2023 13:51 EST RECEIVED DATE/TIME: 11/11/2023 19:58 EST START DATE/TIME: 11/11/2023 19:58 EST FREE TEXT SOURCE: FINAL REPORTS Final Report [] Verified Date/Time/Personnel: 11/13/2023 07:26 EST No growth at 48 hours. PRELIMINARY REPORTS Preliminary Report [] Verified Date/Time/Personnel: 11/12/2023 08:36 EST No growth to date Performing Locations *1: This test was performed at: [facility], [address] [place] [address], [facility] , [facility] ([place]) Clinical Note 11-12-2023 Note Date & Type Note Facility 11-12-2023 Note . MICRO - Microbiology PROCEDURE: Affirm Pathogens DNA Direct Probe [*1] SOURCE: Vaginal Fluid BODY SITE: Vagina COLLECTED DATE/TIME: 11/11/2023 13:51 EST RECEIVED DATE/TIME: 11/11/2023 19:50 EST START DATE/TIME: 11/11/2023 19:50 EST FREE TEXT SOURCE: FINAL REPORTS Final Report [] Verified Date/Time/Personnel: 11/12/2023 10:39 EST Gardnerella vaginalis DNA Probe Negative Trichomonas vaginalis DNA Probe Negative Peyton species DNA Probe Negative Performing Locations *1: This test was performed at: [facility], [address] [place] [address], [id number] , [facility] ([place]) Evaluation + Plan note 11-11-2023 LaboratoryRadiology Note Date & Type Note Facility 11-11-2023 Evaluation + Plan note Future Scheduled TestsCancer Antigen 125 11/11/23Thyroid Stimulating Hormone 09/22/23Free T4 09/22/23Complete Blood Count 09/22/23Complete Blood Count 11/11/23Albumin/Creatinine Ratio, Random Urine 08/01/23PTH, Intact 09/22/23Vitamin D Level 09/22/23Complete Metabolic Panel 09/22/23Complete Metabolic Panel 11/11/23CT Abd/Pelvis w/ IV Contrast Only 11/11/23 [facility] Hospital course Narrative Note Date & Type Note [facility] Hospital course Narrative No data available for this section [facility] Hospital Discharge instructions Note Date & Type Note Facility Hospital Discharge instructions No data available for this section [facility] Progress note Note Date & Type Note Facility Progress note No data available for this section [facility] Summary Purpose Family History No Family History Records Found Advance Directives No Advanced Directives Records Found Additional Source Comments Patient Care team informatio n (unrecognized section and content) Care Team Personnel Name: BARBARA MCMANUS APRN - SENIOR IT ENGINEER Position: P4 Advanced Die Inspector Member Role: Primary Care Physician Address: Address: [address] [facility] [place] [address] [place] Care Team Related Persons Name: [facility] INFORMATION SOURCE (unrecogn ized section and content) FOR RECORDS PERTAINING TO PATIENTS WHO ARE OR HAVE BEEN ENROLLED IN A CHEMICAL DEPENDENCY/SUBSTANCEABUSE PROGRAM, SOME INFORMATION MAY BE OMITTED. This clinical summary was aggregated from multiple sources. Caution should be exercised in using it in the provision of clinical care. This summary normalizes information from multiple sources, and as a consequence, information in this document may materially change the coding, format and clinical context of patient data. In addition, data may be omitted in some cases. CLINICAL DECISIONS SHOULD BE BASED ON THE PRIMARY CLINICAL RECORDS. [facility] [employer] [facility]. provides no warranty or guarantee of the accuracy or completeness of information in this document.
== END | disposition home or self-care (01) ==
PROVIDERS: PCP Nurse Practitioner Family; Referring Provider Nurse Practitioner Primary Care; Visit Provider Nurse Practitioner Primary Care
DX: R10.9 Unspecified abdominal pain (principal); R11.10 Vomiting, unspecified; N93.9 Abnormal uterine and vaginal bleeding, unspecified; Z85.43 Personal history of malignant neoplasm of ovary
CPT/HCPCS: 74177; Q9967